=== PATIENT | male | born 1965 | race Caucasian/White ===

== ENCOUNTER 2025-02-24 17:07 | Emergency (ER) | payer OTHER, SELFPAY ==
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
--- OUTSIDE RECORDS SUMMARY | 2024-03-28 05:30 | XMS_ITS | Encounter Summary ---
Author Name [facility] Organization [facility] Address [address] [place] [address] Care Team Providers Care Maintenance Trainer Name Role Phone ROSA MARIA BAPTISTE Primary [...] [facility] Sep 12, 2017 [id number] TOMMY ESCALANTE PATIENT [facility] 2024 [facility] Sep 13, 2024 [facility] [id number] TOMMY ESCALANTE PATIENT Selected Encounter This section includes the information on record at [place] for the Encounter. Date/Time Encounter Type Encounter Description Reason Pro vider Source Mar 28, 2024 10:30 AM OFFICE O/P EST MOD 30 MIN OPHTHALMOLOGY ICD-10-CM H35.711 Central serous chorioretinopa thy, right eye TELMA,SIYA IHE Encounter Template Text not used by [facility] Assessments - Encounter Diagnoses This section includes the primary and secondary diagnoses documented for the Encounter. Date/Time Primary/Secondary Diagnosis Diagnosis Name Provider Source Apr 05, 2024 09:44 AM PRIMARY Central serous chorioretinopathy, right eye BRIDGET DIAZ [facility] Apr 05, 2024 09:44 AM SECONDARY Age-related nuclear cataract, bilateral BRIDGET DIAZ [facility] Apr 05, 2024 09:44 AM SECONDARY Unspecified disorder of refraction BRIDGET DIAZ [facility] Plan of Treatment: Future Appointments (+ 6 months) and Future Tests (+/- 45 days) The Plan of Treatment section includes [facility] care [facility] for the [facility] [place] [facility] This section includes future appointments and future orders which are active, pending or scheduled. Future Appointments This section includes appointments that were scheduled to occur 6 months from the date of the Encounter, up to a maximum of 20 appointments. The data comes from all [place] treatment facilities. Appointment Date/Time Appointment Type Appointme nt Facility Name Apr 16, 2024 10:00 AM AMBULATORY - MEDICINE [facility] May 02, 2024 09:00 AM AMBULATORY MEDICINE [facility] May 17, 2024 12:15 PM AMBULATORY - NONE [facility] Jun 14, 2024 09:38 AM AMBULATORY - MEDICINE [facility] Jul 06, 2024 07:00 AM AMBULATORY - NONE [facility] Jul 15, 2024 09:27 AM AMBULATORY - MEDICINE [facility] Sep 26, 2024 10:30 AM AMBULATORY - SURGERY [facility] Social History: Smoking Status (Most current) and Tobacco Use (All prior to encounter date) This section includes the most current, and the historical, smoking and tobacco- related health factors from the [place] facility where the Encounter took place. Current Smoking Status This section includes the most current smoking, or tobacco-related health factor, from the [place] facility where the Encounter took place. Date/Time Current Smoking Status Comment Facil ity January 20, 2024 11:30 AM VA-TOBACCO FORMER USER [facility] Tobacco Use History This section includes a history of the smoking, or tobacco-related health factors, that were collected on or before the date of the Encounter. The data comes from the [place] facility where the Encounter took place. Date/Time Smoking Status/Tobacco Use Comment F acility January 20, 2024 11:30 AM VA-TOBACCO QUIT 5 TO < 15 YRS [facility] January 13, 2023 03:00 PM VA-TOBACCO FORMER USER [facility] January 13, 2023 03:00 PM VA-TOBACCO QUIT 5 TO < 15 YRS [facility] Dec 24, 2021 02:00 PM VA-TOBACCO FORMER USER [facility] Dec 24, 2021 02:00 PM VA-TOBACCO QUIT 5 TO < 15 YRS [facility] Jan 07, 2021 01:00 PM VA-TOBACCO FORMER USER [facility] Jan 07, 2021 01:00 PM VA-TOBACCO QUIT 5 TO < 15 YRS [facility] Jan 08, 2019 09:55 AM VA-TOBACCO FORMER USER [facility] Jan 08, 2019 09:55 AM VA-TOBACCO QUIT 5 TO < 15 YRS [facility] Dec 20, 2017 12:40 PM FORMER TOBACCO USE >1Y <7Y [facility] Dec 31, 2016 09:21 AM FORMER TOBACCO USER 7Y OR GREATE R [facility] Dec 31, 2015 01:10 PM FORMER TOBACCO USE >1Y <7Y [facility] January 23, 2015 09:59 AM FORMER TOBACCO USER 7Y OR GREATE R [facility] Jan 09, 2014 02:03 PM CURRENT TOBACCO USER [facility] Apr 19, 2012 04:43 PM CURRENT TOBACCO USER [facility] January 28, 2011 09:00 AM CURRENT TOBACCO USER [facility] Jan 08, 2010 09:49 AM CURRENT TOBACCO USER [facility] Jun 24, 2007 09:07 AM CURRENT TOBACCO USER [facility] Advance Directives: All historical and current Section Date Range: From patient's date of to the date document was created. This section includes ALL of a patient's completed or amended [place] Advance and Rescinded Directives. The entries below indicate that a directive exists for the patient, but an actual copy is not included with this document. The data comes from all [place] facilities. Date Advance Directives Provider Source Jun 21, 2007 ADVANCE DIRECTIVE JOE QUINONES [facility] Encounter Notes: All associated encounter notes This section contains the clinical notes associated to the Encounter. Date/Time Encounter Note(s) Provider Source Mar 28, 2024 11:37 AM OPHTHALMOLOGY ATTE NDING NOTE: LOCAL TITLE: OPHTHALMOLOGY CLINIC NOTE STANDARD TITLE: OPHTHALMOLOGY ATTENDING NOTE DATE OF NOTE: MAR 28, 2024@11:37 ENTRY DATE: MAR 28, 2024@11:37:59 AUTHOR: BRIDGET DIAZ EXP COSIGNER: URGENCY: STATUS: COMPLETED RETINA CLINIC NOTE CC/HPI: 58 y/o M here to establish care with retina, previously followed at [facility] with , last seen 02/14/24. Prior history of RPE changes (pachychoroid disease likely). Retinal exam. Patient states blur at near in the last 6-12 months. Distance vision is good. Has longstanding floater RIGHT eye x at least 1 year, stable without flashes of light. Patient notes more frequently diplopia when looking up at a light without glasses on. Blinking resolves diplopia. Uses ketotifen as needed. TECH EXAM: Vision: CC(with glasses) OD: 20/20 Pinhole: 20/ 0S: 20/ Pinhole: 20/ Refraction: Current glasses: OD:+0.25 +0.98K548 OS:plano +0.91A388 Add: +2.00 Refraction: Manifest: YES Automated: NO OD:+0.25 +0.75X5 20/20 OS:-0.25 +0.25X5 20/20 Add: +2.50 Near vision: OD : OS : OU 20 Intra-ocular pressure (IOP): OD: 16 OS: 14 iCare Pupils: see tech note. Mental Status: alert and orientated to time and place Mood, Affect: appropriate ANTERIOR SLIT LAMP EXAM: Lids/Lashes: normal OU Conjunctiva/Sclera: white and quiet OU Cornea: clear OU Anterior Chamber: deep and quiet OU Iris: round, regular OU Lens: tr NS OU DILATED FUNDUS EXAM: Vitreous: clear OU Cup/Disc: 0.3, sharp, pink, no hemorrhages OU Vessels: normal course and caliber OU Macula: OD flat, sharp foveal light reflex OS nasal RPE clumping, foveal flat with sharp reflex Periphery: OD flat and attached 360 OS scattered RPE clumping/changes nasal to disc, flat and attached OCT MACULA: 03/28/24 OD: normal foveal contour, thick choroid OS: nasal RPE and outer retinal changes, no fluid, good foveal contour, thick choroid ASSESSMENT/PLAN: 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 Notes describe RPE changes OS > OD without any evidence of CNVM. - Risk factors: has a history of cortisone shots for shoulder, hip, and knee. Last injection was several years ago. Also recently diagnosed with chronic rhinitis and RX'd a nasal steroid, using for last 6 weeks. Has VIANNEY on CPAP - OCT with nasal changes and no evidence of leakage or CNVM - Amsler grid given to patients, CNVM precautions discussed. 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 Vitreous syneresis OU - Retina flat/attached 360 - RD precautions discussed 3. Nuclear Sclerosis OU - Mild and not visually significant. Monitor. 4. Dry Eyes OU - Continue ATs/WCs PRN RTC 6 months, V/T/D/Mac OCT, or sooner if needed I spent a total of 30 minutes today reviewing the medical record, personally obtaining the history, examining the patient, reviewing test results, counseling the patient, and documenting the visit. The patient needs glasses to read medicine bottles. The patient is photophobic and may require tinted glasses. /petros/ Bridget Diaz MD Physician, Ophthalmology Signed: 03/28/2024 12:00 BRIDGET DIAZ [facility] Mar 28, 2024 10:48 AM OPHTHALMOLOGY CONS ULT: LOCAL TITLE: OPHTHALMOLOGY IMAGING MSP OUTPT CONSULT STANDARD TITLE: OPHTHALMOLOGY CONSULT DATE OF NOTE: MAR 28, 2024@10:48 ENTRY DATE: MAR 28, 2024@10:48:44 AUTHOR: BOONE SCHWARTZ EXP COSIGNER: URGENCY: STATUS: COMPLETED Requested test(s) done, OCT of maculae OU results uploaded to hotel server for review. /petros/ ADITI ADLER CRA Transport Assistant Signed: 03/28/2024 10:48 BOONE SCHWARTZ [facility] Mar 28, 2024 10:24 AM OPHTHALMOLOGY TECH NICIAN NOTE: LOCAL TITLE: WEB MARKETING SPECIALIST NOTE STANDARD TITLE: WEB MARKETING SPECIALIST NOTE DATE OF NOTE: MAR 28, 2024@10:24 ENTRY DATE: MAR 28, 2024@10:24:52 AUTHOR: BRITNI MARTÍNEZ EXP COSIGNER: URGENCY: STATUS: COMPLETED Eye Start Exam Patient: TOMMY ESCALANTE Sex: MALE SSN: [id number] Birthdate: [birth year] Chief complaint: Retinal exam. Patient states blur at near in the last 6-12 months. Distance vision is good. Has longstanding floater RIGHT eye. Denies flashes of light. Patient notes more frequently diplopia when looking up at a light without glasses on. Blinking resolves diplopia. Uses ketotifen as needed. History of Present Illness: Location: Intensity: Duration: Active Problems List: Active problems - Computerized Problem List is the source for the followin. Adj Dis W/Mixed Mood 2. Low back pain (SNOMED CT 287680485) 3. Hyperlipidemia (SNOMED CT 05937918) 4. Arthritis of left hip (SNOMED CT [id number]) 5. Cataract nos 6. Myopia 7. Astigmatism, [...] med 19. Exposure to potentially hazardous substance ([facility] [id number]) - Entered through [facility] Documentation Initiative Surgeries: APR 01, 2020 Proc: right total hip arthroplasty,direct anterior-DePuy Full Exam Eye Medications ketotifen as needed Allergies: BUPROPION (Nov 13, 2007) No new Allergies. Past Medical History: High cholesterol Past eye history: Cataracts : OU Past eye surgeries: Denies all Social History: Alcohol use - Yes Tobacco use - No Family History: Diabetes High blood pressure High cholesterol Cancer Heart disease or stroke: Last refraction: Vision: OD:CC(with glasses) OD: 20/20 Pinhole: 20/ Near: 20/ Vision: OS:CC(with glasses) 0S: 20/ Pinhole: 20/ Near: 20/ Current glasses: OD:+0.25 +0.00Q236 Prism: OS:plano +0.00F775 Prism: Add: +2.00 Refraction: Manifest: YES Automated: NO OD:+0.25 +0.75X5 20/20 OS:-0.25 +0.25X5 20/20 Balance: Add: +2.50 Near vision: OD : OS : OU 20 Comment: Confrontational Ann: Full to finger counting: Right: Yes Left: Yes Extra Ocular Movement: Normal Pupils: Right: Round Left: Round Size: Right: 4 Left: 5 React to light: Right: Yes Left: Yes Afferent pupil defect: Right:No Grade: Left: No Grade: Note: Intra-ocular pressure (IOP): OD: 16 OS: 14 iCare Dilation: mydriacyl 1% and neosynephrine OU Mar@10:43 /petros/ BRITNI MARTÍNEZ [facility] [employer] DESIGN ENGINEER Signed: 03/28/2024 10:43 BRITNI MARTÍNEZ [facility]
--- OUTSIDE RECORDS SUMMARY | 2024-04-16 05:00 | XMS_ITS | Encounter Summary ---
Author Name [facility] [place] [place] [facility] [place] Address [address] [place] [address] Care Team Providers Care Pattern Ruler Name Role Phone ROSA MARIA BAPTISTE Primary [...] [facility] Sep 12, 2017 [id number] TOMMY ESCALANTE PATIENT [facility] Sep [facility], 2024 [facility] [id number] [phone] TOMMY ESCALANTE PATIENT Selected Encounter This section includes the information on record at [place] for the Encounter. Date/Time Encounter Type Encounter Description Reason Provider Source Apr 16, 2024 10:00 AM OFFICE O/P EST MOD 30 MIN SLEEP MEDICINE ICD-10-CM G47.33 Obstructive sleep apnea (adult) (pediatric) LUIS HEMPHILL [facility] Encounter Template Text not used by [facility] Assessments - Encounter Diagnoses This section includes the primary and secondary diagnoses documented for the Encounter. Date/Time Primary/Secondary Diagnosis Diagnosis Name Provider Source Apr 24, 2024 02:37 PM PRIMARY Obstructive sleep apnea (adult) (pediatric) KANCHANLUIS Varela [facility] Apr 24, 2024 02:37 PM SECONDARY Insomnia, unspecified LUIS HEMPHILL [facility] Plan of Treatment: Future Appointments (+ 6 months) and Future Tests (+/- 45 days) The Plan of Treatment section includes future care activities for the patient from all [place] [facility]. This section includes future appointments and future orders which are active, pending or scheduled. Future Appointments This section includes appointments that were scheduled to occur 6 months from the date of the Encounter, up to a maximum of 20 appointments. The data comes from all [facility] facilities. Appointment Date/Time Appointment Type Appointme nt Facility Name May 02, 2024 09:00 AM AMBULATORY - MEDICINE [facility] May 17, 2024 12:15 PM AMBULATORY - NONE [facility] Jun 14, 2024 09:38 AM AMBULATORY MEDICINE [facility] Jul 06, 2024 07:00 AM AMBULATORY - NONE [facility] Jul 15, 2024 09:27 AM AMBULATORY - MEDICINE [facility] Sep 26, 2024 10:30 AM AMBULATORY - SURGERY [facility] Vital Signs: All taken on the encounter date This section contains inpatient and outpatient Vital Signs collected on the date of the Encounter. Date/Time Temperature Pulse Blood Pressure Respiratory Rate SP02 Pain Height Weight Body Mass Index Source Apr 16, 2024 10:38 AM 155/88 [facility] Apr 16, 2024 10:06 AM 157/88 [facility] Apr 16, 2024 10:04 AM 97.8 53 164/85 16 94 0 197.2 32 [facility] Social History: Smoking Status (Most current) and Tobacco Use (All prior to encounter date) This section includes the most current, and the historical, smoking and tobacco- related health factors from the [place] facility where the Encounter took place. Current Smoking Status This section includes the most current smoking, or tobacco-related health factor, from the [place] facility where the Encounter took place. Date/Time Current Smoking Status Comment Facil ity January 20, 2024 11:30 AM VA-TOBACCO FORMER USER [facility] Tobacco Use History This section includes a history of the smoking, or tobacco-related health factors, that were collected on or before the date of the Encounter. The data comes from the [place] facility where the Encounter took place. Date/Time Smoking Status/Tobacco Use Comment F acility January 20, 2024 11:30 AM VA-TOBACCO QUIT 5 TO < 15 YRS [facility] January 13, 2023 03:00 PM VA-TOBACCO FORMER USER [facility] January 13, 2023 03:00 PM VA-TOBACCO QUIT 5 TO < 15 YRS [facility] Dec 24, 2021 02:00 PM VA-TOBACCO FORMER USER [facility] Dec 24, 2021 02:00 PM VA-TOBACCO QUIT 5 TO < 15 YRS [facility] Jan 07, 2021 01:00 PM VA-TOBACCO FORMER USER [facility] Jan 07, 2021 01:00 PM VA-TOBACCO QUIT 5 TO < 15 YRS [facility] Jan 08, 2019 09:55 AM VA-TOBACCO FORMER USER [facility] Jan 08, 2019 09:55 AM VA-TOBACCO QUIT 5 TO < 15 YRS [facility] Dec 20, 2017 12:40 PM FORMER TOBACCO USE >1Y <7Y [facility] Dec 31, 2016 09:21 AM FORMER TOBACCO USER 7Y OR GREATE R [facility] Dec 31, 2015 01:10 PM FORMER TOBACCO USE >1Y <7Y [facility] January 23, 2015 09:59 AM FORMER TOBACCO USER 7Y OR GREATE R [facility] Jan 09, 2014 02:03 PM CURRENT TOBACCO USER [facility] Apr 19, 2012 04:43 PM CURRENT TOBACCO USER [facility] January 28, 2011 09:00 AM CURRENT TOBACCO USER [facility] Jan 08, 2010 09:49 AM CURRENT TOBACCO USER [facility] Jun 24, 2007 09:07 AM CURRENT TOBACCO USER [facility] Advance Directives: All historical and current Section Date Range: From patient's date of to the date document was created. This section includes ALL of a patient's completed or amended [place] Advance and Rescinded Directives. The entries below indicate that a directive exists for the patient, but an actual copy is not included with this document. The data comes from all [place] facilities. Date Advance Directives Provider Source Jun 21, 2007 ADVANCE DIRECTIVE JOE QUINONES [facility] Encounter Notes: All associated encounter notes This section contains the clinical notes associated to the Encounter. Date/Time Encounter Note(s) Provider Source Apr 16, 2024 10:52 AM ADDENDUM: LOCAL TITLE: Addendum STANDARD TITLE: ADDENDUM DATE OF NOTE: APR 16, 2024@10:52:59 ENTRY DATE: APR 16, 2024@10:53 AUTHOR: HERBERT TEJEDA EXP COSIGNER: URGENCY: STATUS: COMPLETED RTC placed for RN ph appt r/t home BP f/u. FYI MEME, please contact vet to schedule. /petros/ HERBERT TEJEDA REGISTERED NURSE Signed: 04/16/2024 10:53 Receipt Acknowledged By: 04/16/2024 11:09 /es/ CEDRIC MON AMSA --- Original Document --- 04/16/24 MEDICINE CLINIC NURSING NOTE: TYPE OF VISIT: Appointment Check In Type of appointment: In-person appointment REASON FOR VISIT: Scheduled clinic visit ALLERGIES: BUPROPION (Nov 13, 2007) VITAL SIGNS: Blood Pressure: 164/85 (04/16/2024 10:04) Blood pressure recheck 157/88 Pulse: 53 (04/16/2024 10:04) Respiration: 16 (04/16/2024 10:04) Temperature: 97.8 F [36.6 C] (04/16/2024 10:04) Weight: 197.2 lb [89.45 kg] (04/16/2024 10:04) Height: 66 in [167.6 cm] (01/30/2024 13:53) BMI: 31.9 O2 Sat: 94% (04/16/2024 10:04) Pain: 0 (04/16/2024 10:04) PAIN SCREEN: Patient is not having significant pain that they wish to discuss with their provider today. MEDICATION Over the Counter/Herbal Medications: The patient states that they take some outside medications and/or herbals. /petros/ REGAN RAYMOND LPN Licensed Practical Nurse Signed: 04/16/2024 10:08 04/16/2024 ADDENDUM STATUS: COMPLETED EDUCATION: 's BP remains elevated after appointment. BP re-check: 155/88 Patient is asymptomatic prior to leaving the clinic today. PARTICIPANT(s): Patient Home Blood Pressure Monitoring Has home Blood Pressure monitor. Verified [employer]. Advised to check home blood pressure daily for two weeks and follow up with Primary Care Provider. PACT RN TL and Provider alerted to note for follow up planning. /petros/ DALI Wade [facility] Signed: 04/16/2024 10:42 Receipt Acknowledged By: 04/16/2024 10:53 /petros/ HERBERT TEJEDA REGISTERED NURSE for HERBERT CALDERON [facility] Apr 16, 2024 10:41 AM ADDENDUM: LOCAL TITLE: Addendum STANDARD TITLE: ADDENDUM DATE OF NOTE: APR 16, 2024@10:41:08 ENTRY DATE: APR 16, 2024@10:41:09 AUTHOR: DALI HILLMAN COSIGNER: URGENCY: STATUS: COMPLETED EDUCATION: 's BP remains elevated after appointment. BP re-check: 155/88 Patient is asymptomatic prior to leaving the clinic today. PARTICIPANT(s): Patient Home Blood Pressure Monitoring Has home Blood Pressure monitor. Verified [employer]. Advised to check home blood pressure daily for two weeks and follow up with Primary Care Provider. PACT RN TL and Provider alerted to note for follow up planning. /petros/ DALI Wade [facility] Signed: 04/16/2024 10:42 Receipt Acknowledged By: 04/16/2024 10:53 /kranthi TEJEDA REGISTERED NURSE for OLGA ZIMMERMAN --- Original Document --- 04/16/24 MEDICINE CLINIC NURSING NOTE: TYPE OF VISIT: Appointment Check In Type of appointment: In-person appointment REASON FOR VISIT: Scheduled clinic visit ALLERGIES: BUPROPION (Nov 13, 2007) VITAL SIGNS: Blood Pressure: 164/85 (04/16/2024 10:04) Blood pressure recheck 157/88 Pulse: 53 (04/16/2024 10:04) Respiration: 16 (04/16/2024 10:04) Temperature: 97.8 F [36.6 C] (04/16/2024 10:04) Weight: 197.2 lb [89.45 kg] (04/16/2024 10:04) Height: 66 in [167.6 cm] (01/30/2024 13:53) BMI: 31.9 O2 Sat: 94% (04/16/2024 10:04) Pain: 0 (04/16/2024 10:04) PAIN SCREEN: Patient is not having significant pain that they wish to discuss with their provider today. MEDICATION Over the Counter/Herbal Medications: The patient states that they take some outside medications and/or herbals. /petros/ REGAN RAYMOND LPN Licensed Practical Nurse Signed: 04/16/2024 10:08 04/16/2024 ADDENDUM STATUS: COMPLETED RTC placed for RN ph appt r/t home BP f/u. FYI [facility], please contact vet to schedule. /petros/ HERBERT TEJEDA REGISTERED NURSE Signed: 04/16/2024 10:53 Receipt Acknowledged By: * AWAITING SIGNATURE * CEDRIC MON MELISSA S [facility] Apr 16, 2024 10:05 AM INTERNAL MEDICINE OUTPATIENT NOTE: LOCAL TITLE: MEDICINE CLINIC NURSING NOTE STANDARD TITLE: INTERNAL MEDICINE OUTPATIENT NOTE DATE OF NOTE: APR 16, 2024@10:05 ENTRY DATE: APR 16, 2024@10:05:25 AUTHOR: REGAN RAYMOND COSIGNER: URGENCY: STATUS: COMPLETED MEDICINE CLINIC NURSING NOTE Has ADDENDA TYPE OF VISIT: Appointment Check In Type of appointment: In-person appointment REASON FOR VISIT: Scheduled clinic visit ALLERGIES: BUPROPION (Nov 13, 2007) VITAL SIGNS: Blood Pressure: 164/85 (04/16/2024 10:04) Blood pressure recheck 157/88 Pulse: 53 (04/16/2024 10:04) Respiration: 16 (04/16/2024 10:04) Temperature: 97.8 F [36.6 C] (04/16/2024 10:04) Weight: 197.2 lb [89.45 kg] (04/16/2024 10:04) Height: 66 in [167.6 cm] (01/30/2024 13:53) BMI: 31.9 O2 Sat: 94% (04/16/2024 10:04) Pain: 0 (04/16/2024 10:04) PAIN SCREEN: Patient is not having significant pain that they wish to discuss with their provider today. MEDICATION Over the Counter/Herbal Medications: The patient states that they take some outside medications and/or herbals. /petros/ REGAN RAYMOND LPN Licensed Practical Nurse Signed: 04/16/2024 10:08 04/16/2024 ADDENDUM STATUS: COMPLETED EDUCATION: 's BP remains elevated after appointment. BP re-check: 155/88 Patient is asymptomatic prior to leaving the clinic today. PARTICIPANT(s): Patient Home Blood Pressure Monitoring Has home Blood Pressure monitor. Verified [employer]. Advised to check home blood pressure daily for two weeks and follow up with Primary Care Provider. PACT RN TL and Provider alerted to note for follow up planning. /petros/ DALI Wade [facility] Signed: 04/16/2024 10:42 Receipt Acknowledged By: 04/16/2024 10:53 /petros/ HERBERT TEJEDA REGISTERED NURSE for OLGA Gay ERASMO 04/16/2024 ADDENDUM STATUS: COMPLETED RTC placed for RN ph appt r/t home BP f/u. EMEKA VALENTINE, please contact vet to schedule. /pteros/ HERBERT TEJEDA REGISTERED NURSE Signed: 04/16/2024 10:53 Receipt Acknowledged By: * AWAITING SIGNATURE * CEDRIC MON ASHLEY A [facility] Apr 16, 2024 07:55 AM SLEEP MEDICINE NOT E: LOCAL TITLE: SLEEP MEDICINE NOTE STANDARD TITLE: SLEEP MEDICINE NOTE DATE OF NOTE: APR 16, 2024@07:55 ENTRY DATE: APR 16, 2024@07:55:25 AUTHOR: LUIS HEMPHILL COSIGNER: URGENCY: STATUS: COMPLETED History of Present Illness: -Tommy is a 58y/o male with a significant PMH for GERD and HLD. He is overweight with a BMI: 31.9. He was referred to the sleep clinic for evaluation for sleep disordered breathing. He completed a home sleep study which was positive for sleep apnea with a pAHI: 33. He was started on APAP and feels benefits from the use of the device. He denies any difficulty w/ mask fit or pressure settings. His overnight oximetry was negative for nocturnal hypoxia. His sleep latency has improved with a later bedtime. He has no concerns regarding his sleep today. He has been able to discontinue melatonin. His ESS is 2 and SONAM 7 today. Sleep Schedule -Bedtime: 10:30-11pm -Sleep latency: <5min -Nocturnal awakenings: 1x nocturia; back asleep quickly -Rise time: 7:30am usually feeling rested -Naps: none Past medication trials for sleep: doxepin, melatonin 90 day PAP download 01/17/24-04/15/24 - days of attempted usage -Avg usage: 7hr 20min -% Days used >4hrs: 100% -AHI: 0.8 -Settings: APAP 5-15 -95% pressure: [id number] -95% leak: 10 L/min 10/26/2023 WPAT as an KLAUS - Mean oxygen saturation was 93% - Lowest oxygen saturation was 83% - Saturations < 90%: 2.3 minutes (0.6% of TVST) - Saturations <= 88%: 0.8 minutes (0.2% of TVST) Study date: 08/01/2023 - Total Recording Time 6 hrs. 21 min. - Study start time 22:39:59 PM - Study stop time 05:01:53 AM - Technically valid sleep time 4 hrs. 54 min. - Total Sleep Time 5 hrs. 46 min. - REM was N/A% of technically valid sleep time BODY POSITION - Supine sleep was 3 hrs. 49 min. (66.3% of TVST) - Non-Supine sleep was 1 hr. 33 min. (26.8% of TVST) RESPIRATORY PARAMETERS: - pAHI-4% was 32.9 - Supine pAHI-4% was 35.3 - Non-supine pAHI-4% was 23.7 - Estimated REM pAHI-4% was N/A - Central pAHI-4% was 5.7 - pRDI was 32.9 - Snoring >50dB for 45.4% of TVST - JOSE ANTONIO was 36.4 - Mean oxygen saturation was 88% - Lowest oxygen saturation was 55% - Saturations < 90%: 157.3 minutes (45.5% of TVST) - Saturations <= 88%: 119.1 minutes (34.5% of TVST) HEART RATE STATISTICS (BPM) - Mean: 58; Min: 32; Max: 94 [place] Sleepiness Scale Using the scale: 0=Never 1=Slight chance of dozing 2=Moderate chance of dozing 3=High chance of dozing, how often are you likely to doze off in the following situations? 1. Sitting and reading 1 2. Watching TV 1 3. Sitting inactive in a public place 0 4. As a passenger in a car for an hour without a break 0 5. Lying down to rest in the afternoon as circumstances permit 0 6. Sitting and talking to someone 0 7. Sitting quietly after lunch without alcohol 0 8. In a car while stopped for a few minutes in traffic 0 TOTAL: 2 INSOMNIA SEVERITY INDEX: none: 0, mild: 1, moderate: 2, severe: 3, very: 4 1. Difficulty falling asleep (1) 2. Difficulty staying asleep (1) 3. Problem waking up too early (1) 4. How satisfied/dissatisfied are you with your current sleep (1) 5. To what extent do you consider your sleep problem to interfere with your daily functioning (1) 6. How noticeable to others do you think your sleep problem is in terms of impairing the quality of your life (1) 7. How worried/distressed are you about your current sleep problem (1) Total: 7 0-7: No clinically significant insomnia 8-14: Subthreshold insomnia 15-21: Clinical insomnia (moderate severity) 22-28: Clinical insomnia (severe) Review of Systems: The confirms or denies the following symptoms as noted: Non-restorative sleep: + occasional Snoring: resolved w/ PAP Witnessed apneas: resolved w/ PAP Nocturia: + Difficulty initiating sleep: + Difficulty maintaining sleep: - Sleep Walking: - Somniloquy: + Sleep paralysis: - Hypnagogic hallucinations: - Hypnopompic hallucinations: - Nocturnal limb movements: + some kicking; denies LORENA Nightmares: - RLS: - (has neuropathy; will be discussing w/ PCP) Past Medical History Active problems - Computerized Problem List is [...] - airsense s11 apap 5-15, N20 med Medications: Active Outpatient Medications (including Supplies): Outpatient Medications Status 1) ACETAMINOPHEN 500MG TAB TAKE TWO TABLETS BY MOUTH ACTIVE THREE TIMES A DAY FOR PAIN*NOT TO EXCEED 4000MG IN 24 HOURS* 2) ATORVASTATIN CALCIUM 40MG TAB TAKE ONE-HALF TABLET BY ACTIVE MOUTH AT BEDTIME FOR CHOLESTEROL 3) AZELASTINE 137MCG/SPRAY 200D NASAL INHL SPRAY 1 PUFF ACTIVE IN EACH NOSTRIL TWICE A DAY FOR CHRONIC RHINITIS 4) CELECOXIB 100MG CAP TAKE ONE CAPSULE BY MOUTH TWICE A ACTIVE DAY FOR JOINT PAIN 5) FLUTICASONE PROP 50MCG 120D NASAL INHL SPRAY 2 SPRAYS ACTIVE IN EACH NOSTRIL EVERY DAY FOR CONGESTION 6) IPRATROPIUM BR 0.03% NASAL SPRAY SPRAY 1 SPRAY IN ACTIVE EACH NOSTRIL FOUR TIMES A DAY CHRONIC RHINITIS 7) KETOTIFEN 0.025% OPH SOLN INSTILL 1 DROP IN BOTH EYES ACTIVE TWICE A DAY 8) LIDOCAINE 4% TOP CREAM APPLY MODERATE AMOUNT ACTIVE TOPICALLY THREE TIMES A DAY NEEDED (COLD/ PAIN IN FEET) 9) LORATADINE 10MG TAB TAKE ONE TABLET BY [...] CAP TAKE ONE CAPSULE BY MOUTH ACTIVE TWICE A DAY TO DECREASE STOMACH ACID -TAKE ON AN EMPTY STOMACH, AT LEAST 30 MINUTES BEFORE EATING 14) SINUS RINSE NEILMED REGULAR KIT USE 1 PACKET EACH ACTIVE NOSTRIL TWICE A DAY CHRONIC RHINITIS Non-VA Medications Status 1) Non-VA MARINE LIPID (FISH OIL) CAP,ORAL ACTIVE 2) Non-VA MULTIVITAMINS/MINERALS TAB MOUTH ACTIVE 16 Total Medications Allergies: BUPROPION (Nov 13, 2007) Physical Exam: Vitals: BP: 155/88 (04/16/2024 10:38) P: 53 (04/16/2024 10:04) R: 16 (04/16/2024 10:04) T: 97.8 F [36.6 C] (04/16/2024 10:04) WT: 197.2 lb [89.45 kg] (04/16/2024 10:04) Pain: 0 (04/16/2024 10:04) Impression: 1. Severe sleep apnea: download suggests current settings are effectively treating 's sleep apnea 2. Insomnia: improved since his last office visit Recommendation: 1. Continue APAP with excellent adherence 2. RTC in 12mo or sooner if needed 30 minutes spent on chart review, examining the , and documentation of the note /es/ TONY ROSADO PHYSICIAN INFANTRY OPERATIONS SPECIALIST Signed: 04/16/2024 10:54 LUIS HEMPHILL [facility]
--- OUTSIDE RECORDS SUMMARY | 2024-06-14 04:38 | XMS_ITS | Encounter Summary ---
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 them? Response not required due to responses to other questions. 5. Over the past month, have you started to work out or worked out the details of how to kill yourself? Response not required due to responses to other questions. 6. If yes, at any time in the past month did you intend to carry out this plan? Response not required due to responses to other questions. 7. In your lifetime, have you ever done anything, started to do anything, or prepared to do anything to end your life (for example, collected pills, obtained a gun, gave away valuables, went to the roof but didn't jump)? No 8. If YES, was this within the past 3 months? Response not required due to responses to other questions. /petros/ MARIO ELLIOTT BUSBOY RN Signed: 06/14/2024 10:39 MARIO ELLIOTT [facility]
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
--- OUTSIDE RECORDS SUMMARY | 2024-07-15 06:37 | XMS_ITS | Encounter Summary ---
Author Name [facility] [place] [facility] [place] [facility] [place] Address [address] [place] [address] Care Team Providers Care Timing Adjuster Name Role Phone ROSA MARIA BAPTISTE Primary [...] [place] PREFERRED PROVIDER ORGANIZAT ION (PPO) SIDDHARTHA RICKS LABOR ERS H Sep 12, 2017 [id number] TOMMY ESCALANTE PATIENT [facility] 2024 [facility] Sep 13, 2024 [facility] [id number] TOMMY ESCALANTE PATIENT Selected Encounter This section includes the information on record at [place] for the Encounter. Date/Time Encounter Type Encounter Description Reason Pro vider Source Jul 15, 2024 11:37 AM Outpatient Encounter [facility] Encounter Template Text not used by [place] Plan of Treatment: Future Appointments (+ 6 months) and Future Tests (+/- 45 days) The Plan of Treatment section includes future care activities for the patient from all [facility] treatment[facility]ilities. This section includes future appointments and future orders which are active, pending or scheduled. Future Appointments This section includes appointments that were scheduled to occur 6 months from the date of the Encounter, up to a maximum of 20 appointments. The data comes from all [place] treatment facilities. Appointment Date/Time Appointment Type Appointme nt Facility Name Sep 26, 2024 10:30 AM AMBULATORY - SURGERY [facility] Lab Results: +/- 30 days of the encounter This section includes the Chemistry and Hematology Lab Results on record with [place] for the patient. Radiology Reports and Pathology Reports are provided separately, in subsequent sections. Lab Results This section contains the Chemistry/Hematology Results that were resulted 30 days before or 30 daysafter the date of the Encounter. Date/Time Source Result Type Result - Unit Interpretation Reference Range Specimen Type Comment Jul 15, 2024 10:11 AM [facility] COVID-19 DIAGNOSTIC PANEL (TinypassFIRE) NASOPHARYNG EAL Specimen Type: NASOPHARYNGEAL Comment: [employer] Julianne (618) Ordering Provider: SEAN MORGAN Report Released Date/Time: Jul 15, 2024 10:01 AM Reporting Lab: [facility] [id number] Performing Lab: [facility] [id number] C PNEUMONIAE PCR NOT DETECTED NOT DETECT [...] PCR NOT DETECTED NOT DE TECTED B PARAPERTUS([id number]) NOT DETECTED NOT DE TECTED B PERTUSSIS(PTXP) [...] AM 98.8 71 153/86 16 94 0 [place] [facility] Social History: Smoking Status (Most current) and Tobacco Use (All prior to encounter date) This section includes the most current, and the historical, smoking and tobacco- related health factors from the [place] facility where the Encounter took place. Current Smoking Status This section includes the most current smoking, or tobacco-related health factor, from the [place] facility where the Encounter took place. Date/Time Current Smoking Status Comment Facil ity January 20, 2024 11:30 AM VA-TOBACCO QUIT 5 TO < 15 YRS [facility] Tobacco Use History This section includes a history of the smoking, or tobacco-related health factors, that were collected on or before the date of the Encounter. The data comes from the [place] facility where the Encounter took place. Date/Time Smoking Status/Tobacco Use Comment F acility January 20, 2024 11:30 AM VA-TOBACCO QUIT 5 TO < 15 YRS [facility] January 13, 2023 03:00 PM VA-TOBACCO FORMER USER [facility] January 13, 2023 03:00 PM VA-TOBACCO QUIT 5 TO < 15 YRS [facility] Dec 24, 2021 02:00 PM VA-TOBACCO FORMER USER [facility] Dec 24, 2021 02:00 PM VA-TOBACCO QUIT 5 TO < 15 YRS [facility] Jan 07, 2021 01:00 PM VA-TOBACCO FORMER USER [facility] Jan 07, 2021 01:00 PM VA-TOBACCO QUIT 5 TO < 15 YRS [facility] Jan 08, 2019 09:55 AM VA-TOBACCO FORMER USER [facility] Jan 08, 2019 09:55 AM VA-TOBACCO QUIT 5 TO < 15 YRS [facility] Dec 20, 2017 12:40 PM FORMER TOBACCO USE >1Y <7Y [facility] Dec 31, 2016 09:21 AM FORMER TOBACCO USER 7Y OR GREATE R [facility] Dec 31, 2015 01:10 PM FORMER TOBACCO USE >1Y <7Y [facility] January 23, 2015 09:59 AM FORMER TOBACCO USER 7Y OR GREATE R [facility] Jan 09, 2014 02:03 PM CURRENT TOBACCO USER [facility] Apr 19, 2012 04:43 PM CURRENT TOBACCO USER [facility] January 28, 2011 09:00 AM CURRENT TOBACCO USER [facility] Jan 08, 2010 09:49 AM CURRENT TOBACCO USER [facility] Jun 24, 2007 09:07 AM CURRENT TOBACCO USER [facility] Advance Directives: All historical and current Section Date Range: From patient's date of to the date document was created. This section includes ALL of a patient's completed or amended [place] Advance and Rescinded Directives. The entries below indicate that a directive exists for the patient, but an actual copy is not included with this document. The data comes from all [place] facilities. Date Advance Directives Provider Source Jun 21, 2007 ADVANCE DIRECTIVE JOE QUINONES [facility] Encounter Notes: All associated encounter notes This section contains the clinical notes associated to the Encounter. Date/Time Encounter Note(s) Provider Source Jul 15, 2024 11:37 AM EDUCATION NOTE: LOCAL TITLE: EDUCATION MEDICATION INSTRUCTION STANDARD TITLE: EDUCATION NOTE DATE OF NOTE: JUL 15, 2024@11:37 ENTRY DATE: JUL 15, 2024@11:37:35 AUTHOR: MICHELET GAINES EXP COSIGNER: URGENCY: STATUS: COMPLETED MEDICATION EDUCATION PARTICIPANTS: Patient TEACHING STRATEGY: Face to Face READINESS TO LEARN: No barriers identified LEARNING NEEDS/OBJECTIVES Participant(s) indicates readiness to learn and has been instructed on indications, side effects, and directions for use. Participant(s) will receive medication information sheets for medications filled. Education included discussion of the following new medication(s): BENZONATATE PATIENT/FAMILY RESPONSE (OUTCOME): Verbalizes critical information about the topic FOLLOW-UP RECOMMENDED: None needed /petros/ MICHELET GAINES PharmD, BCPS PHARMACIST Signed: 07/15/2024 11:37 MICHELET GAINES [facility]
--- OUTSIDE RECORDS SUMMARY | 2024-09-26 05:30 | XMS_ITS | Encounter Summary ---
Author Name [facility] Organization [facility] [place] [place] Address [address] [place] [address] Care Team Providers Care Sba Underwriter Name Role Phone ROSA MARIA BAPTISTE Primary [...] [facility] LABOR ERS H Sep 12, 2017 [id number] TOMMY ESCALANTE PATIENT [facility] 2024 [facility] Sep 13, 2024 [facility] [id number] TOMMY ESCALANTE PATIENT Selected Encounter This section includes the information on record at [place] for the Encounter. Date/Time Encounter Type Encounter Description Reason Provider Source Sep 26, 2024 10:30 AM OFFICE O/P EST MOD 30 MIN OPHTHALMOLOGY ICD-10-CM H35.3122 Nexdtve age-related mclr degn, left eye, intermed dry stage TELMA,[facility] Encounter Template Text not used by [facility] Assessments - Encounter Diagnoses This section includes the primary and secondary diagnoses documented for the Encounter. Date/Time Primary/Secondary Diagnosis Diagnosis Name Provider Source Oct 09, 2024 09:06 AM PRIMARY Nexdtve age-related mclr degn, left eye, intermed dry stage [facility] Oct 09, 2024 09:06 AM SECONDARY Age-related nuclear cataract, bilateral [facility] Oct 09, 2024 09:06 AM SECONDARY Vitreous degeneration, bilateral [facility] Plan of Treatment: Future Appointments (+ 6 months) and Future Tests (+/- 45 days) The Plan of Treatment section includes future care activities for the patient [facility] [place] [facility]. This section includes future appointments and future orders which are active, pending or scheduled. Future Appointments This section includes appointments that were scheduled to occur 6 months from the date of the Encounter, up to a maximum of 20 appointments. The data comes from all [place] treatment facilities. Appointment Date/Time Appointment Type Appointme nt Facility Name Feb 15, 2025 08:00 AM AMBULATORY - NONE [facility] Feb 15, 2025 09:00 AM AMBULATORY - MEDICINE [facility] Mar 01, 2025 09:00 AM AMBULATORY - NONE [facility] Social History: Smoking Status (Most current) and Tobacco Use (All prior to encounter date) This section includes the most current, and the historical, smoking and tobacco- related health factors from the [place] facility where the Encounter took place. Current Smoking Status This section includes the most current smoking, or tobacco-related health factor, from the [place] facility where the Encounter took place. Date/Time Current Smoking Status Comment Mervin ity January 20, 2024 11:30 AM VA-TOBACCO FORMER USER [facility] Tobacco Use History This section includes a history of the smoking, or tobacco-related health factors, that were collected on or before the date of the Encounter. The data comes from the [place] facility where the Encounter took place. Date/Time Smoking Status/Tobacco Use Comment F acility January 20, 2024 11:30 AM VA-TOBACCO QUIT 5 TO < 15 YRS [facility] January 13, 2023 03:00 PM VA-TOBACCO FORMER USER [facility] January 13, 2023 03:00 PM VA-TOBACCO QUIT 5 TO < 15 YRS [facility] Dec 24, 2021 02:00 PM VA-TOBACCO FORMER USER [facility] Dec 24, 2021 02:00 PM VA-TOBACCO QUIT 5 TO < 15 YRS [facility] Jan 07, 2021 01:00 PM VA-TOBACCO FORMER USER [facility] Jan 07, 2021 01:00 PM VA-TOBACCO QUIT 5 TO < 15 YRS [facility] Jan 08, 2019 09:55 AM VA-TOBACCO FORMER USER [facility] Jan 08, 2019 09:55 AM VA-TOBACCO QUIT 5 TO < 15 YRS [facility] Dec 20, 2017 12:40 PM FORMER TOBACCO USE >1Y <7Y [facility] Dec 31, 2016 09:21 AM FORMER TOBACCO USER 7Y OR GREATE R [facility] Dec 31, 2015 01:10 PM FORMER TOBACCO USE >1Y <7Y [facility] January 23, 2015 09:59 AM FORMER TOBACCO USER 7Y OR GREATE R [facility] Jan 09, 2014 02:03 PM CURRENT TOBACCO USER [facility] Apr 19, 2012 04:43 PM CURRENT TOBACCO USER [facility] January 28, 2011 09:00 AM CURRENT TOBACCO USER [facility] Jan 08, 2010 09:49 AM CURRENT TOBACCO USER [facility] Jun 24, 2007 09:07 AM CURRENT TOBACCO USER [facility] Advance Directives: All historical and current Section Date Range: From patient's date of to the date document was created. This section includes ALL of a patient's completed or amended [place] Advance and Rescinded Directives. The entries below indicate that a directive exists for the patient, but an actual copy is not included with this document. The data comes from all [place] facilities. Date Advance Directives Provider Source Jun 21, 2007 ADVANCE DIRECTIVE JOE QUINONES [facility] Encounter Notes: All associated encounter notes This section contains the clinical notes associated to the Encounter. Date/Time Encounter Note(s) Provider Source Sep 26, 2024 11:33 AM OPHTHALMOLOGY CONS ULT: LOCAL TITLE: OPHTHALMOLOGY IMAGING [facility] OUTPT CONSULT STANDARD TITLE: OPHTHALMOLOGY CONSULT DATE OF NOTE: SEP 26, 2024@11:33 ENTRY DATE: SEP 26, 2024@11:33:31 AUTHOR: BOONE SCHWARTZ EXP COSIGNER: URGENCY: STATUS: COMPLETED Requested test(s) done, OCT of maculae OU results uploaded to fountain server for review. 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 Notices an occasional flash in the OD once in a great while, started about 2-3 weeks ago. Possible new floater in the OS - glasses working well. TECH EXAM: Vision: OD:CC(with glasses) OD: 20/20-1 Pinhole: 20/ 0S: 20/20 Pinhole: 20/ Intra-ocular pressure (IOP): OD: 14 OS: 11 iCare Pupils: see tech note. Mental Status: [...] sharp reflex Periphery: OD flat and attached 360, peripheral drusenoid deposits OS scattered RPE clumping/changes nasal to disc, flat and attached OCT MACULA: 09/26/24 OD: normal foveal contour, thick choroid OS: nasal RPE and outer retinal changes, no fluid, good foveal contour, thick choroid ASSESSMENT/PLAN: 1. 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 Last injection several years ago. Also VIANNEY on CPAP, using nasal steroid - OCT stable with nasal changes OS and no evidence of leakage or CNVM - Continue Amsler Grid use, CNVM precautions 2. Vitreous syneresis OU - Retina flat/attached 360 - Occasional flash OD x few weeks. Hyaloid attached, no PVD yet. Discussed RD precautions and RTC immediately for increased flashes/floaters/curtain. 3. Nuclear Sclerosis OU - Mild and not visually significant. Monitor. 4. Dry Eyes OU - Continue ATs/WCs PRN RTC 9 months, V/T/D/Mac OCT, or sooner if needed I spent a total of 30 minutes today reviewing the medical record, personally obtaining the history, examining the patient, reviewing test results, counseling the patient, and documenting the visit. The patient needs glasses to read medicine bottles. The patient is photophobic and may require tinted glasses. /petros/ Katerin Diaz MD Physician, Ophthalmology Signed: 09/26/2024 11:25 KATERIN DIAZ [facility] Sep 26, 2024 10:39 AM OPHTHALMOLOGY TECH NICIAN NOTE: LOCAL TITLE: FOUNDER AND CHIEF EXECUTIVE OFFICER NOTE STANDARD TITLE: FOUNDER AND CHIEF EXECUTIVE OFFICER NOTE DATE OF NOTE: SEP 26, 2024@10:39 ENTRY DATE: SEP 26, 2024@10:39:27 AUTHOR: EMMA MONTEJO COSIGNER: URGENCY: STATUS: COMPLETED Eye Start Exam Patient: TOMMY ESCALANTE Sex: MALE SSN: [id number] Birthdate: [birth year] Chief complaint: 6 mo F/U - pt has just started noticing an occasional flash in the OD, started about 2-3 weeks ago - maybe getting a new floater in the OS - glasses working well History of Present Illness: Location: Intensity: Duration: Follow Up Exam Eye Medications ketotifen OU PRN Last refraction: Vision: OD:CC(with glasses) OD: 20/20-1 Pinhole: 20/ Near: 20/ Vision: OS:CC(with glasses) 0S: 20/20 Pinhole: 20/ Near: 20/ Confrontational Ann: Full to finger counting: Right: Yes Left: Yes Extra Ocular Movement: Normal Pupils: Right: Round Left: Round Size: Right: 4 Left: 4 React to light: Right: Yes Left: Yes Afferent pupil defect: Right:No Grade: Left: No Grade: Note: Intra-ocular pressure (IOP): OD: 14 OS: 11 iCare Dilation: mydriacyl 1% and neosynephrine OU Sep@10:46 /petros/ EMMA MONTEJO HEALTH INTERNATIONAL MARKETING SPECIALIST Signed: 09/26/2024 10:46 EMMA MONTEJO [facility]
--- OUTSIDE RECORDS SUMMARY | 2025-01-23 12:17 | XMS_ITS | Encounter Summary ---
Author Name [facility] Organization [facility] Address [address] [place] [address] Care Team Providers Care Cook Fruit Name Role Phone ROSA MARIA BAPTISTE Primary [...] [facility] Sep 12, 2017 [id number] TOMMY ESCALANTE PATIENT [facility] 2024 [facility] WNR Sep 13, 2024 [facility] [id number] TOMMY ESCALANTE PATIENT Selected Encounter This section includes the information on record at [place] for the Encounter. Date/Time Encounter Type Encounter Description Reason Pro vider Source January 23, 2025 05:17 PM Outpatient Encounter EVENT (HISTORICAL) I[facility] Encounter Template Text not used by [place] Plan of Treatment: Future Appointments (+ 6 [...] 20 appointments. The data comes from all [facility]. Appointment Date/Time Appointment Type Appointme nt Facility Name Feb 15, 2025 08:00 [facility] Feb 15, 2025 09:00 AM AMBULATORY - MEDIC[facility] Mar 01, 2025 09:00 AM [facility] Apr 10, 2025 09:00 AM [facility] Apr 15, 2025 10:00 AM AMBULATORY - MEDICINE [facility] Jul 02, 2025 09:30 AM [facility] Active, Pending, and Scheduled Orders This section includes a listing of several types of active, pending, and scheduled orders, including clinic medications orders, diagnostic test orders, procedure orders and consult orders; where the start date of the order is 45 days before the date of the Encounter or 45 days after the date of theEncounter. The data comes from all [facility]. Test Date/Time Test Type Test Details Facility Name Feb 17, 2025 11:20 AM Consult Order CARDIAC EC HO OUTPT-ALL SITES Cons Medicine Assistant's Choice [facility] Mar 01, 2025 09:00 AM Imaging - CT Scan Order LDCT INCIDENTAL PULMONARY NODULE [facility] Lab Results: +/- 30 days of the encounter This section includes the Chemistry and Hematology Lab Results on record with [place] for the patient. Radiology Reports and Pathology Reports are provided separately, in subsequent sections. Lab Results This section contains the Chemistry/Hematology Results that were resulted 30 days before or 30 daysafter the date of the Encounter. Date/Time Source Result Type Result - Unit Interpretation Reference Range Specimen Type Comment Feb 15, 2025 07:39 AM [facility] HEMOGLOBIN A1C BLOOD Specimen Type: BLOOD Comment: Values obtained from A1C measurements can vary. For typical A1C assays, a reported value of 7.0 could actually be between 6.7 and 7.3 if measured by a reference method. A reported value of 9.0 could actually be between 8.7 and 9.3. Ref: http://www.ngsp .org/CAPdata.as p Ordering Provider: DIONY BAPTISTE Report Released Date/Time: January 20, 2024 12:23 PM Reporting Lab: [facility] [id number] Performing Lab: [facility] [id number] HEMOGLOBIN A1C 6.2 H 4.0-6.0 Feb 15, 2025 07:39 AM [facility] LIPID PANEL,NON-FASTING PLASMA Spec imen Type: PLASMA No comment entered. Ordering Provider: ROSA MARIA BAPTISTE Report Released Date/Time: January 20, 2024 12:23 PM Reporting Lab: [facility] [phone] Performing Lab: [facility] [phone] CHOLESTEROL 194 mg/dL <199 .HDL 50 mg/dL >40 LDL CALCULATION 106 mg/dL H <99 VLDL CALCULATION 38 mg/dL H <29 NON HDL CHOLESTEROL 144 mg/dL H <129 TRIG(NON FASTING) 188 mg/dL H <149 Feb 15, 2025 07:39 AM [facility] CBC BLOOD Specimen Type: BLOOD No comment entered. Ordering Provider: ROSA MARIA BAPTISTE Report Released Date/Time: January 20, 2024 12:23 PM Reporting Lab: [facility] [phone] Performing Lab: [facility] [phone] WBC 4.8 4.0-11.0 RBC 4.92 4.60-6.20 HGB 14.7 g/dL 13.5-17.9 HCT 43.7 41.0-54.0 MCV 88.8 fL 80.0-100.0 MCH 29.9 pg 27.0-33.0 MCHC 33.6 g/dL 32.0-37.5 PLT 191 150-400 MPV 8.8 fL L 9.1-13.0 RDW 12.4 11.5-14.5 Feb 15, 2025 07:39 AM [facility] COMPREHENSIVE METABOLIC PANEL+MG PLASMA Specimen Type: PLASMA No comment entered. Ordering Provider: ROSA MARIA BAPTISTE Report Released Date/Time: January 20, 2024 12:23 PM Reporting Lab: [facility] [phone] Performing Lab: [facility] [phone] CREATININE 0.9 mg/dL 0.7-1.2 UREA NITROGEN 11 mg/dL 8-26 GLUCOSE 122 mg/dL H 70-100 SODIUM 139 mmol/L 136-145 POTASSIUM 4.3 mmol/L 3.5-5.1 CHLORIDE 103 mmol/L 98-107 CO2 26 mmol/L 22-29 CALCIUM 9.4 mg/dL 8.4-10.2 PROTEIN,TOTAL 7.7 g/dL 6.4-8.3 ALBUMIN 4.8 g/dL 3.5-5.0 BILIRUBIN, TOTAL 0.7 mg/dL 0.2-1.2 MAGNESIUM 2.2 mg/dL 1.6-2.6 ANION GAP 10 mmol/L 5-15 ALKALINE PHOSPHATASE 88 U/L 40-150 ALT/SGPT 73 U/L H <44 AST/SGOT 56 U/L H 11-34 .CREAT EGFR(CKD-EPI) >90 >60 Social History: Smoking Status (Most current) and Tobacco Use (All prior to encounter date) This section includes the most current, and the historical, smoking and tobacco- related health factors from the [place] facility where the Encounter took place. Current Smoking Status This section includes the most current smoking, or tobacco-related health factor, from the [place] facility where the Encounter took place. Date/Time Current Smoking Status Comment Mervin ity January 20, 2024 11:30 AM VA-TOBACCO FORMER USER [facility] Tobacco Use History This section includes a history of the smoking, or tobacco-related health factors, that were collected on or before the date of the Encounter. The data comes from the [place] facility where the Encounter took place. Date/Time Smoking Status/Tobacco Use Comment F acstarr January 20, 2024 11:30 AM VA-TOBACCO QUIT 5 TO < 15 YRS [facility] January 13, 2023 03:00 PM VA-TOBACCO FORMER USER [facility] January 13, 2023 03:00 PM VA-TOBACCO QUIT 5 TO < 15 YRS [facility] Dec 24, 2021 02:00 PM VA-TOBACCO FORMER USER [facility] Dec 24, 2021 02:00 PM VA-TOBACCO QUIT 5 TO < 15 YRS [facility] Jan 07, 2021 01:00 PM VA-TOBACCO FORMER USER [facility] Jan 07, 2021 01:00 PM VA-TOBACCO QUIT 5 TO < 15 YRS [facility] Jan 08, 2019 09:55 AM VA-TOBACCO FORMER USER [facility] Jan 08, 2019 09:55 AM VA-TOBACCO QUIT 5 TO < 15 YRS [facility] Dec 20, 2017 12:40 PM FORMER TOBACCO USE >1Y <7Y [facility] Dec 31, 2016 09:21 AM FORMER TOBACCO USER 7Y OR GREATE R [facility] Dec 31, 2015 01:10 PM FORMER TOBACCO USE >1Y <7Y [facility] January 23, 2015 09:59 AM FORMER TOBACCO USER 7Y OR GREATE R [facility] Jan 09, 2014 02:03 PM CURRENT TOBACCO USER [facility] Apr 19, 2012 04:43 PM CURRENT TOBACCO USER [facility] January 28, 2011 09:00 AM CURRENT TOBACCO USER [facility] Jan 08, 2010 09:49 AM CURRENT TOBACCO USER [facility] Jun 24, 2007 09:07 AM CURRENT TOBACCO USER [facility] Advance Directives: All historical and current Section Date Range: From patient's date of to the date document was created. This section includes ALL of a patient's completed or amended [place] Advance and Rescinded Directives. The entries below indicate that a directive exists for the patient, but an actual copy is not included with this document. The data comes from all [place] facilities. Date Advance Directives Provider Source Jun 21, 2007 ADVANCE DIRECTIVE JOE QUINONES [facility] Encounter Notes: All associated encounter notes This section contains the clinical notes associated to the Encounter. Date/Time Encounter Note(s) Provider Source January 23, 2025 05:17 PM Captain Wise DIALOG NOTE: LOCAL TITLE: GenometryAGING STANDARD TITLE: Captain Wise DIALOG NOTE DATE OF NOTE: JANUARY 23, 2025@17:17 ENTRY DATE: JANUARY 23, 2025@16:17:09 AUTHOR: KILO LOCKWOOD EXP COSIGNER: URGENCY: STATUS: COMPLETED ------Original Message ---- Sent: 01/21/2025 04:42 PM ET From: KILO LOCKWOOD To: [facility] Primary care alcohol use screener follow up Subject: General:[facility] Primary care alcohol use screen follow up Good afternoon, My name is Kilo Lockwood and I am a [place] Pharmacist who works with your provider. I am reaching out to you today to follow up on some routine health screening questions we asked you about at your last primary care visit. One of the questionnaires you filled out asked you questions about alcohol use. Based on the answers you provided, the amount of alcohol you reported drinking can be harmful to your overall health. There are many ways that drinking alcohol can affect overall health. This can include increasing the risk for heart attack, stroke, high blood pressure, liver disease, and certain cancers. Keeping the amount of alcohol you drink below certain amounts can lower your risk of those health issues. The recommended drinking limits are: ? For men: no more than 2 drinks per day on average (which is 14 drinks/week); no more than 4 drinks on any one day ? For women: no more than 1 drink per day on average (which is 7 drinks/week); no more than 3 drinks on any one day The [place] has multiple services that can assist you in reducing alcohol consumption. These services include both medication assistance and therapy. There are several medication options available depending on your drinking goals. Would you be interested in discussing your alcohol use further and potential options to help you reduce drinking? Please reply to this secure message. If you are interested in talking about ways to reduce alcohol use, reply YES. If you are not interested, please reply NO. If you are interested, myself or a clinical pharmacist I work with will reach out via phone. Thank you for your time and your service. Sincerely, Kilo Lockwood, PharmD? ------Original Message ---- Sent: 01/21/2025 05:26 PM ET From: TOMMY ESCALANTE To: [facility] Primary Care Alcohol Screen Follow-up Subject: General:[facility] Primary care alcohol use screen follow up No /es/ KILO LOCKWOOD HOISTING ENGINEER Signed: 01/23/2025 16:17 KILO LOCKWOOD [facility]
--- OUTSIDE RECORDS SUMMARY | 2025-02-12 09:16 | XMS_ITS ---
Author Name [facility] [place] Address [address] [place] [address] Care Team Providers Care Pyrometer Temperature Regulator Name Role Phone ROSA MARIA BAPTISTE Primary [...] [facility] ERS H Sep 12, 2017 [id number] TOMMY ESCALANTE PATIENT [facility] 2024 [facility] Sep 13, 2024 [facility] [id number] TOMMY ESCALANTE PATIENT Selected Encounter This section includes the information on record at [place] for the Encounter. Date/Time Encounter Type Encounter Description Reason Provider Source Feb 12, 2025 02:16 PM [facility] OL DIG ASSMT&MGMT 21+ CLINICAL PHARMACY ICD-10-CM F10.90 Alcohol use, unspecified, uncomplicated MIGUEL,AND RA A IHE Encounter Template Text not used by [facility] Assessments - Encounter Diagnoses This section includes the primary and secondary diagnoses documented for the Encounter. Date/Time Primary/Secondary Diagnosis Diagnosis Name Provider Source Feb 12, 2025 02:21 PM PRIMARY Alcohol use, unspecified, uncomplicated EPLAND,CLAUDI A R [facility] Plan of Treatment: Future Appointments (+ 6 months) and Future Tests (+/- 45 days) The Plan of Treatment section includes future care activities for the patient from all [place] [facility] This section includes future appointments and future orders which are active, pending or scheduled. Future Appointments This section includes appointments that were scheduled to occur 6 months from the date of the Encounter, up to a maximum of 20 appointments. The data comes from all [facility]. Appointment Date/Time Appointment Type Appointme nt Facility Name Feb 15, 2025 08:00 AM AMBULATORY - NONE [facility] Feb 15, 2025 09:00 AM AMBULATORY - MEDICINE [facility] Mar 01, 2025 09:00 AM AMBULATORY - NONE [facility] Apr 10, 2025 09:00 AM [facility] Apr 15, 2025 10:00 AM AMBULATORY - MEDICINE [facility] Jul 02, 2025 09:30 AM AMBULATORY - SURGERY [facility] Active, Pending, and Scheduled Orders This section includes a listing of several types of active, pending, and scheduled orders, including clinic medications orders, diagnostic test orders, procedure orders and consult orders; where the start date of the order is 45 days before the date of the Encounter or 45 days after the date of theEncounter. The data comes from all [facility]. Test Date/Time Test Type Test Details Facility Name Feb 17, 2025 11:20 AM Consult Order CARDIAC EC HO OUTPT-ALL SITES Cons Supervisor Liquid Yeast's Choice [facility] Mar 01, 2025 09:00 AM Imaging - CT Scan Order LDCT INCIDENTAL PULMONARY NODULE [facility] Lab Results: +/- 30 days of the encounter This section includes the Chemistry and Hematology Lab Results on record with [place] for the patient. Radiology Reports and Pathology Reports are provided separately, in subsequent sections. Lab Results This section contains the Chemistry/Hematology Results that were resulted 30 days before or 30 daysafter the date of the Encounter. Date/Time Source Result Type Result - Unit Interpretation Reference Range Specimen Type Comment Feb 15, 2025 07:39 AM [facility] HEMOGLOBIN A1C BLOOD Specimen Type: BLOOD Comment: [...] January 20, 2024 12:23 PM Reporting Lab: [facility] [id number] Performing Lab: [facility] [id number] HEMOGLOBIN A1C 6.2 H 4.0-6.0 Feb 15, 2025 07:39 AM [facility] LIPID PANEL,NON-FASTING PLASMA Spec imen Type: PLASMA No comment entered. Ordering Provider: ROSA MARIA BAPTISTE Report Released Date/Time: January 20, 2024 12:23 PM Reporting Lab: [facility] [id number] Performing Lab: [facility] [id number] CHOLESTEROL 194 mg/dL <199 .HDL 50 mg/dL >40 LDL CALCULATION 106 mg/dL H <99 VLDL CALCULATION 38 mg/dL H <29 NON HDL CHOLESTEROL 144 mg/dL H <129 TRIG(NON FASTING) 188 mg/dL H <149 Feb 15, 2025 07:39 AM [facility] CBC BLOOD Specimen Type: BLOOD No comment entered. Ordering Provider: ROSA MARIA BAPTISTE Report Released Date/Time: January 20, 2024 12:23 PM Reporting Lab: [facility] [id number] Performing Lab: [facility] [id number] WBC 4.8 4.0-11.0 RBC 4.92 4.60-6.20 HGB 14.7 g/dL 13.5-17.9 HCT 43.7 41.0-54.0 MCV 88.8 fL 80.0-100.0 MCH 29.9 pg 27.0-33.0 MCHC 33.6 g/dL 32.0-37.5 PLT 191 150-400 MPV 8.8 fL L 9.1-13.0 RDW 12.4 11.5-14.5 Feb 15, 2025 07:39 AM [facility] COMPREHENSIVE METABOLIC PANEL+MG PLASMA Specimen Type: PLASMA No comment entered. Ordering Provider: ROSA MARIA BAPTISTE Report Released Date/Time: January 20, 2024 12:23 PM Reporting Lab: [facility] [id number] Performing Lab: [facility] [id number] CREATININE 0.9 mg/dL 0.7-1.2 UREA NITROGEN 11 [...] and tobacco- related health factors from the [place] facility where the Encounter took place. Current Smoking Status This section includes the most current smoking, or tobacco-related health factor, from the [place] facility where the Encounter took place. Date/Time Current Smoking Status Comment Mervin solitario January 20, 2024 11:30 AM VA-TOBACCO FORMER USER [facility] Tobacco Use History This section includes a history of the smoking, or tobacco-related health factors, that were collected on or before the date of the Encounter. The data comes from the [place] facility where the Encounter took place. Date/Time Smoking Status/Tobacco Use Comment Kourtney acstarr January 20, 2024 11:30 AM VA-TOBACCO QUIT 5 TO < 15 YRS [facility] January 13, 2023 03:00 PM VA-TOBACCO FORMER USER [facility] January 13, 2023 03:00 PM VA-TOBACCO QUIT 5 TO < 15 YRS [facility] Dec 24, 2021 02:00 PM VA-TOBACCO FORMER USER [facility] Dec 24, 2021 02:00 PM VA-TOBACCO QUIT 5 TO < 15 YRS [facility] Jan 07, 2021 01:00 PM VA-TOBACCO FORMER USER [facility] Jan 07, 2021 01:00 PM VA-TOBACCO QUIT 5 TO < 15 YRS [facility] Jan 08, 2019 09:55 AM VA-TOBACCO FORMER USER [facility] Jan 08, 2019 09:55 AM VA-TOBACCO QUIT 5 TO < 15 YRS [facility] Dec 20, 2017 12:40 PM FORMER TOBACCO USE >1Y <7Y [facility] Dec 31, 2016 09:21 AM FORMER TOBACCO USER 7Y OR GREATE R [facility] Dec 31, 2015 01:10 PM FORMER TOBACCO USE >1Y <7Y [facility] January 23, 2015 09:59 AM FORMER TOBACCO USER 7Y OR GREATE R [facility] Jan 09, 2014 02:03 PM CURRENT TOBACCO USER [facility] Apr 19, 2012 04:43 PM CURRENT TOBACCO USER [facility] January 28, 2011 09:00 AM CURRENT TOBACCO USER [facility] Jan 08, 2010 09:49 AM CURRENT TOBACCO USER [facility] Jun 24, 2007 09:07 AM CURRENT TOBACCO USER [facility] Advance Directives: All historical and current Section Date Range: From patient's date of to the date document was created. This section includes ALL of a patient's completed or amended [place] Advance and Rescinded Directives. The entries below indicate that a directive exists for the patient, but an actual copy is not included with this document. The data comes from all [facility]. Date Advance Directives Provider Source Jun 21, 2007 ADVANCE DIRECTIVE JOE QUINONES [facility] Encounter Notes: All associated encounter notes This section contains the clinical notes associated to the Encounter. Date/Time Encounter Note(s) Provider Source Feb 12, 2025 02:16 PM PHARMACY NOTE: LOCAL TITLE: PHARMACOTHERAPY-CLINICAL PHARMACY NOTE STANDARD TITLE: PHARMACY NOTE DATE OF NOTE: FEB 12, 2025@14:16 ENTRY DATE: FEB 12, 2025@14:16:24 AUTHOR: KILO LOCKWOODIGNER: URGENCY: STATUS: COMPLETED SUBJECT: primary care alcohol use screen follow up PHARMACOTHERAPY-CLINICAL PHARMACY NOTE Has [facility] SERVICE Date of service: FEB 12, 2025 Ashton was identified by the [place] Academic Detailing Alcohol Use Disorder Dashboard as having alcohol use higher than recommended limit on most recent AUDIT-C score assessed on 01/20/2024. Outreach was conducted via secure messaging on 01/21/2025. Previous MH/Substance Use Treatment: Outpatient MH Treatment History: - is NOT currently engaged with MH provider - Ashton has previously been engaged with outpatient MH services (last seen 2009) Alcohol Use Medication History: none per chart review Active problems - Computerized Problem List is the source for the followin. Adj Dis W/Mixed Mood 2. Low back pain (SNOMED CT 368167729) 3. Hyperlipidemia (SNOMED CT 04631446) 4. Arthritis of left hip (SNOMED CT 8538525791072408) 5. Cataract nos 6. Myopia 7. Astigmatism, [...] 19. Exposure to potentially hazardous substance (RUST [id number]) [facility] ER[facility] Documentation Initiative Active Medications: Active Outpatient Medications (including Supplies): Active Outpatient Medications Status 1) CELECOXIB 100MG CAP TAKE ONE CAPSULE BY MOUTH TWICE A ACTIVE DAY FOR JOINT PAIN 2) FLUTICASONE PROP 50MCG 120D NASAL INHL SPRAY 2 SPRAYS ACTIVE (S) IN EACH NOSTRIL EVERY DAY FOR CONGESTION 3) IPRATROPIUM BR 0.03% NASAL SPRAY SPRAY 1 SPRAY IN ACTIVE EACH NOSTRIL FOUR TIMES A DAY CHRONIC RHINITIS 4) KETOTIFEN 0.025% OPH SOLN INSTILL 1 DROP IN BOTH EYES ACTIVE TWICE A DAY 5) LIDOCAINE 4% TOP CREAM APPLY MODERATE AMOUNT ACTIVE TOPICALLY THREE TIMES A DAY NEEDED (COLD/ PAIN IN FEET) 6) LORATADINE 10MG TAB TAKE ONE TABLET BY MOUTH EVERY ACTIVE DAY FOR ALLERGIES 7) MENTHOL/M-SALICYLATE 10-15% TOP CREAM APPLY THIN ACTIVE LAYER TWICE A DAY NEEDED FOR HIP PAIN 8) MICONAZOLE NITRATE 2% TOP PWDR USE TO AFFECTED AREA ACTIVE TOPICALLY TWICE A DAY NEEDED FOR FUNGAL INFECTION 9) MUPIROCIN 2% OINT APPLY MODERATE AMOUNT TOPICALLY ACTIVE TWICE A DAY FOR INFECTION 10) OMEPRAZOLE 20MG EC CAP TAKE ONE CAPSULE BY MOUTH ACTIVE TWICE A DAY TO DECREASE STOMACH ACID -TAKE ON AN EMPTY STOMACH, AT LEAST 30 MINUTES BEFORE EATING 11) SINUS RINSE NEILMED PKT USE 1 PACKET EACH NOSTRIL ACTIVE TWICE A DAY NEEDED FOR CHRONIC RHINITIS Active Non-VA Medications Status 1) Non-VA MARINE LIPID (FISH OIL) CAP,ORAL ACTIVE 2) Non-VA MULTIVITAMINS/MINERALS TAB MOUTH ACTIVE 13 Total Medications LABS Vitals: ------- Wt: 250 lb [113.40 kg] (11/11/2022 14:57) Ht: 75.75 in [192.4 cm] (11/11/2022 14:57) BP: 167/83 (11/11/2022 14:57) HR: 71 (11/11/2022 14:57) BMI: 30.7 AUDIT-C: -------- Date Instrument Raw Trans Scale 01/20/2024 11:30 AUDC 8 Total 01/20/2024 10:29 PLASMA EGFRCKD >90 Ref: >=60 SODIUM 136 mmol/L 136 - 145 POTASSIUM 4.2 mmol/L 3.5 - 5.1 CHLORIDE 103 mmol/L 98 - 107 CO2 25 mmol/L 22 - 29 ANION GAP 8 mmol/L 5 - 15 GLUCOSE 108 H mg/dL 70 - 100 UREA NITROGEN 15 mg/dL 8 - 26 CREATININE 0.9 mg/dL 0.7 - 1.2 PROTEIN,TOTAL 7.8 g/dL 6.0 - 8.3 ALBUMIN 4.7 g/dL 3.5 - 5.2 CALCIUM 9.5 mg/dL 8.4 - 10.2 MAGNESIUM 1.9 mg/dL 1.6 - 2.6 BILIRUBIN, TOTAL 0.8 mg/dL 0.2 - 1.2 ALK 79 U/L 40 - 150 AST/SGOT 46 H U/L Ref: <=34 ALT/SGPT 73 H U/L Ref: <=55 CHOLESTEROL 200 H mg/dL Ref: <=199 TRIG(NON FASTING) 172 H mg/dL Ref: <=149 .HDL 56 mg/dL Ref: >=40 LDL CALCULATION 110 H mg/dL Ref: <=99 VLDL CALCULATION 34 H mg/dL Ref: <=29 NONHDLC 144 H mg/dL Ref: <=129 ASSESSMENT: Ashton is a 59 y/o MALE who was identified by [place] Academic Detailing Alcohol Use Disorder Dashboard as having alcohol use higher than recommended limit on last AUDIT-C assessment completed on 01/20/2024. Men who score 4 or higher on the AUDIT-C are considered to consume above the recommended limit of alcohol use and are at increased risk for harm. Outreach was conducted via secure messaging on 01/21/25. Ashton responded on 01/21/2025 and declined AUD medication or other services at this time. Would encourage continued discussion at next visit regarding 's interest in reducing alcohol use. Ashton would likely benefit from pharmacotherapy to help reduce alcohol intake. o May consider offering the following pharmacotherapy options at next encounter, if appropriate: - Naltrexone - Acamprosate - Disulfiram - Gabapentin - Topiramate o May also consider consultation with or referral to PACT team pharmacist or pharmacist Nam Boyle or Adelita Fierro o If interested, provide with ARS number [phone] to schedule intake appointment. PLAN: 1. Outreach was conducted via secure messaging to offer AUD pharmacotherapy and other resources. declined at this time. Alerting primary care provider to consider further discussion of resources noted above Time spent: 30 minutes /petros/ KILO LOCKWOOD NUT CRACKER Signed: 02/12/2025 14:21 Receipt Acknowledged By: 02/12/2025 14:24 /petros/ ALEX RIVERA, PHARMD, [facility] Clinical Pharmacist Practitioner * AWAITING SIGNATURE * ROSA MARIA BAPTISTE 02/12/2025 ADDENDUM STATUS: COMPLETED TYPE OF SUPERVISION: Available Healthcare Science Specialist precepted the above trainee for this encounter, including supervision and review of documentation. Assessment and plan reflects our discussion. /petros/ ALEX RIVERA, MEHREEN, BCPP Mental Health Clinical Pharmacist Practitioner Signed: 02/12/2025 14:25 KILO LOCKWOOD [facility]
--- OUTSIDE RECORDS SUMMARY | 2025-02-14 04:02 | XMS_ITS | Encounter Summary ---
Author Name [facility] [place] Address [address] [place] [address] Care Team Providers Care Bowling Ball Grader Name Role Phone ROSA MARIA BAPTISTE Primary [...] [place] PREFERRED PROVIDER ORGANIZAT ION (PPO) SIDDHARTHA LIORKRYSTLE LABOR ERS H Sep 12, 2017 [id number] TOMMY ESCALANTE PATIENT [facility] 2024 [facility] Sep 13, 2024 [facility] [id number] TOMMY ESCALANTE PATIENT Selected Encounter This section includes the information on record at [place] for the Encounter. Date/Time Encounter Type Encounter Description Reason Pro vider Source Feb 14, 2025 09:02 AM Outpatient Encounter OPHTHALMOLOGY IHE Encounter Template Text not used by [facility] Plan of Treatment: Future Appointments (+ 6 [...] 20 appointments. The data comes from all [facility]. Appointment Date/Time Appointment Type Appointme nt Facility Name Feb 15, 2025 08:00 AM AMBULATORY - NONE [facility] Feb 15, 2025 09:00 AM AMBULATORY - MEDICINE [facility] Mar 01, 2025 09:00 AM [facility] Apr 10, 2025 09:00 AM [facility] Apr 15, 2025 10:00 AM AMBULATORY - MEDICINE [facility] Jul 02, 2025 09:30 AM [facility] Active, Pending, and Scheduled Orders This section includes a listing of several types of active, pending, and scheduled orders, including clinic medications orders, diagnostic test orders, procedure orders and consult orders; where the start date of the order is 45 days before the date of the Encounter or 45 days after the date of theEncounter. The data comes from all [facility]. Test Date/Time Test Type Test Details Facility Name Feb 17, 2025 11:20 AM Consult Order CARDIAC EC HO OUTPT-ALL SITES Cons Manager Study's Choice [facility] Mar 01, 2025 09:00 AM Imaging - CT Scan Order LDCT INCIDENTAL PULMONARY NODULE [facility] Lab Results: +/- 30 days of the encounter This section includes the Chemistry and Hematology Lab Results on record with [place] for the patient. Radiology Reports and Pathology Reports are provided separately, in subsequent sections. Lab Results This section contains the Chemistry/Hematology Results that were resulted 30 days before or 30 daysafter the date of the Encounter. Date/Time Source Result Type Result - Unit Interpretation Reference Range Specimen Type Comment Feb 15, 2025 07:39 AM [facility] HEMOGLOBIN A1C BLOOD Specimen Type: BLOOD Comment: [...] January 20, 2024 12:23 PM Reporting Lab: [facility] [id number] Performing Lab: [facility] [phone] HEMOGLOBIN A1C 6.2 H 4.0-6.0 Feb 15, 2025 07:39 AM [facility] LIPID PANEL,NON-FASTING PLASMA Spec imen Type: PLASMA No comment entered. Ordering Provider: ROSA MARIA BAPTISTE Report Released Date/Time: January 20, 2024 12:23 PM Reporting Lab: [facility] [id number] Performing Lab: [facility] [id number] CHOLESTEROL 194 mg/dL <199 .HDL 50 mg/dL >40 LDL CALCULATION 106 mg/dL H <99 VLDL CALCULATION 38 mg/dL H <29 NON HDL CHOLESTEROL 144 mg/dL H <129 TRIG(NON FASTING) 188 mg/dL H <149 Feb 15, 2025 07:39 AM [facility] CBC BLOOD Specimen Type: BLOOD No comment entered. Ordering Provider: ROSA MARIA BAPTISTE Report Released Date/Time: January 20, 2024 12:23 PM Reporting Lab: [facility] [id number] Performing Lab: [facility] [id number] WBC 4.8 4.0-11.0 RBC 4.92 4.60-6.20 HGB 14.7 g/dL 13.5-17.9 HCT 43.7 41.0-54.0 MCV 88.8 fL 80.0-100.0 MCH 29.9 pg 27.0-33.0 MCHC 33.6 g/dL 32.0-37.5 PLT 191 150-400 MPV 8.8 fL L 9.1-13.0 RDW 12.4 11.5-14.5 Feb 15, 2025 07:39 AM [facility] COMPREHENSIVE METABOLIC PANEL+MG PLASMA Specimen Type: PLASMA No comment entered. Ordering Provider: ROSA MARIA BAPTISTE Report Released Date/Time: January 20, 2024 12:23 PM Reporting Lab: [facility] [id number] Performing Lab: [facility] [phone] CREATININE 0.9 mg/dL 0.7-1.2 UREA NITROGEN 11 [...] and tobacco- related health factors from the [place] facility where the Encounter took place. Current Smoking Status This section includes the most current smoking, or tobacco-related health factor, from the [place] facility where the Encounter took place. Date/Time Current Smoking Status Comment Facil ity January 20, 2024 11:30 AM VA-TOBACCO QUIT 5 TO < 15 YRS [facility] Tobacco Use History This section includes a history of the smoking, or tobacco-related health factors, that were collected on or before the date of the Encounter. The data comes from the [place] facility where the Encounter took place. Date/Time Smoking Status/Tobacco Use Comment F acstarr January 20, 2024 11:30 AM VA-TOBACCO QUIT 5 TO < 15 YRS [facility] January 13, 2023 03:00 PM VA-TOBACCO FORMER USER [facility] January 13, 2023 03:00 PM VA-TOBACCO QUIT 5 TO < 15 YRS [facility] Dec 24, 2021 02:00 PM VA-TOBACCO FORMER USER [facility] Dec 24, 2021 02:00 PM VA-TOBACCO QUIT 5 TO < 15 YRS [facility] Jan 07, 2021 01:00 PM VA-TOBACCO FORMER USER [facility] Jan 07, 2021 01:00 PM VA-TOBACCO QUIT 5 TO < 15 YRS [facility] Jan 08, 2019 09:55 AM VA-TOBACCO FORMER USER [facility] Jan 08, 2019 09:55 AM VA-TOBACCO QUIT 5 TO < 15 YRS [facility] Dec 20, 2017 12:40 PM FORMER TOBACCO USE >1Y <7Y [facility] Dec 31, 2016 09:21 AM FORMER TOBACCO USER 7Y OR GREATE R [facility] Dec 31, 2015 01:10 PM FORMER TOBACCO USE >1Y <7Y [facility] January 23, 2015 09:59 AM FORMER TOBACCO USER 7Y OR GREATE R [facility] Jan 09, 2014 02:03 PM CURRENT TOBACCO USER [facility] Apr 19, 2012 04:43 PM CURRENT TOBACCO USER [facility] January 28, 2011 09:00 AM CURRENT TOBACCO USER [facility] Jan 08, 2010 09:49 AM CURRENT TOBACCO USER [facility] Jun 24, 2007 09:07 AM CURRENT TOBACCO USER [facility] Advance Directives: All historical and current Section Date Range: From patient's date of to the date document was created. This section includes ALL of a patient's completed or amended [place] Advance and Rescinded Directives. The entries below indicate that a directive exists for the patient, but an actual copy is not included with this document. The data comes from all [place] facilities. Date Advance Directives Provider Source Jun 21, 2007 ADVANCE DIRECTIVE JOE QUINONES [facility] Encounter Notes: All associated encounter notes This section contains the clinical notes associated to the Encounter. Date/Time Encounter Note(s) Provider Source Feb 14, 2025 09:02 AM REPORT OF CONTACT: LOCAL TITLE: APPOINTMENT SCHEDULING NOTE STANDARD TITLE: REPORT OF CONTACT DATE OF NOTE: FEB 14, 2025@09:02 ENTRY DATE: FEB 14, 2025@09:02:40 AUTHOR: MONE MULLER EXP COSIGNER: URGENCY: STATUS: COMPLETED Attempted to schedule Cancellation Clinic cancellation Contact attempt made to 1st attempt Telephone 2nd attempt Letter - Sent letter by regular [place] mail to address on file: TOMMY ESCAL[address]TE [id number], [place] [address] Disposition order request after Feb Left message on voice mail to call back to this number [phone] If calls back, schedule appt for: 9m VTD OCT Mac FED 09/26/2024 /petros/ MONE OSULLIVAN Signed: 02/14/2025 09:03 MONE MULLER [facility]
--- OUTSIDE RECORDS SUMMARY | 2025-02-15 03:49 | XMS_ITS | Encounter Summary ---
Author Name [facility] [facility] [place] Address [address] [place] [address] Care Team Providers Care Ruling Technician Name Role Phone ROSA MARIA BAPTISTE Primary [...] [facility] Sep 12, 2017 [id number] TOMMY ESCALANTE PATIENT [facility] 2024 [facility] WNR Sep 13, 2024 [facility] [id number] TOMMY ESCALANTE PATIENT Selected Encounter This section includes the information on record at [place] for the Encounter. Date/Time Encounter Type Encounter Description Reason Pro vider Source Feb 15, 2025 08:49 AM Outpatient Encounter PRIMARY CARE/MEDICINE IHE Encounter Template Text not used by [...] 20 appointments. The data comes from all [facility]. Appointment Date/Time Appointment Type Appointme nt Facility Name Mar 01, 2025 09:00 AM AMBULATORY - NONE RON HOANG [facility] Apr 10, 2025 09:00 AM [facility] Apr 15, 2025 10:00 AM AMBULATORY - MEDICINE GIOVANNY REBOLLEDO [facility] Jul 02, 2025 09:30 AM AMBULATORY - SURGERY SIDDHARTHA EM [facility] Active, Pending, and Scheduled Orders This section includes a listing of several types of active, pending, and scheduled orders, including clinic medications orders, diagnostic test orders, procedure orders and consult orders; where the start date of the order is 45 days before the date of the Encounter or 45 days after the date of theEncounter. The data comes from all [facility]. Test Date/Time Test Type Test Details Facility Name Feb 17, 2025 11:20 AM Consult Order CARDIAC EC HO OUTPT-ALL SITES Cons Information And Data Architect Analyst's Choice [facility] Mar 01, 2025 09:00 AM Imaging - CT Scan Order LDCT INCIDENTAL PULMONARY NODULE [facility] Lab Results: +/- 30 days [...] Type Comment Feb 15, 2025 07:39 AM [facility] CBC BLOOD Specimen Type: BLOOD No comment entered. Ordering Provider: ROSA MARIA BAPTISTE Report Released Date/Time: January 20, 2024 12:23 PM Reporting Lab: [facility] [id number] Performing Lab: [facility] [id number] WBC 4.8 4.0-11.0 RBC 4.92 4.60-6.20 HGB 14.7 g/dL 13.5-17.9 HCT 43.7 41.0-54.0 MCV 88.8 fL 80.0-100.0 MCH 29.9 pg 27.0-33.0 MCHC 33.6 g/dL 32.0-37.5 PLT 191 150-400 MPV 8.8 fL L 9.1-13.0 RDW 12.4 11.5-14.5 Feb 15, 2025 07:39 AM [facility] COMPREHENSIVE METABOLIC PANEL+MG PLASMA Specimen Type: PLASMA No comment entered. Ordering Provider: ROSA MARIA BAPTISTE Report Released Date/Time: January 20, 2024 12:23 PM Reporting Lab: [facility] [id number] Performing Lab: [facility] [id number] CREATININE 0.9 mg/dL 0.7-1.2 UREA NITROGEN 11 [...] U/L H 11-34 .CREAT EGFR(CKD-EPI) >90 >60 Feb 15, 2025 07:39 AM [facility] HEMOGLOBIN A1C BLOOD Specimen Type: BLOOD Comment: Values obtained from A1C measurements can vary. For typical A1C assays, a reported value of 7.0 could actually be between 6.7 and 7.3 if measured by a reference method. A reported value of 9.0 could actually be between 8.7 and 9.3. Ref: http://www.ngsp.org/CAPdata.asp Ordering Provider: ROSA MARIA BAPTISTE Report Released Date/Time: January 20, 2024 12:23 PM Reporting Lab: [facility] [id number] Performing Lab: [facility] [id number] HEMOGLOBIN A1C 6.2 H 4.0-6.0 Feb 15, 2025 07:39 AM [facility] LIPID PANEL,NON-FASTING PLASMA Spec imen Type: PLASMA No comment entered. Ordering Provider: ROSA MARIA BAPTISTE Report Released Date/Time: January 20, 2024 12:23 PM Reporting Lab: [facility] [id number] Performing Lab: [facility] [phone] CHOLESTEROL 194 mg/dL <199 .HDL 50 mg/dL >40 LDL CALCULATION 106 mg/dL H <99 VLDL CALCULATION 38 mg/dL H <29 NON HDL CHOLESTEROL 144 mg/dL H <129 TRIG(NON FASTING) 188 mg/dL H <149 Vital Signs: All taken on the encounter date This section contains inpatient and outpatient Vital Signs collected on the date of the Encounter. Date/Time Temperature Pulse Blood Pressure Respiratory Rate SP02 Pain Height Weight Body Mass Index Source Feb 15, 2025 09:08 AM 128/72 [facility] Feb 15, 2025 09:02 AM 97.1 70 144/72 16 96 0 66 200 32 [facility] Social History: Smoking Status (Most current) and [...] Date/Time Current Smoking Status Comment Mervin solitario Feb 15, 2025 09:00 AM [place] FORMER CIGARETTES [facility] Tobacco Use History This section includes a history of the smoking, or tobacco-related health factors, that were collected on or before the date of the Encounter. The data comes from the [place] facility where the Encounter took place. Date/Time Smoking Status/Tobacco Use Comment Kourtney hammer Feb 15, 2025 09:00 AM [place]-TO[place] USE FOR[place] CIGARETTES [facility] January 20, 2024 11:30 AM [place]-TOBACCO FORMER USER [facility] January 20, 2024 11:30 AM VA-TOBACCO QUIT 5 TO < 15 YRS [facility] January 13, 2023 03:00 PM [place]-TOBACCO FORMER USER [facility] January 13, 2023 03:00 PM VA-TOBACCO QUIT 5 TO < 15 YRS [facility] Dec 24, 2021 02:00 PM [place]-TOBACCO FORMER USER [facility] Dec 24, 2021 02:00 PM VA-TOBACCO QUIT 5 TO < 15 YRS [facility] Jan 07, 2021 01:00 PM [place]-TOBACCO FORMER USER [facility] Jan 07, 2021 01:00 PM VA-TOBACCO QUIT 5 TO < 15 YRS [facility] Jan 08, 2019 09:55 AM [place]-TOBACCO FORMER USER [facility] Jan 08, 2019 09:55 AM [place]-TOBACCO QUIT 5 TO < 15 YRS [facility] Dec 20, 2017 12:40 PM FORMER TOBACCO USE >1Y <7Y [facility] Dec 31, 2016 09:21 AM FORMER TOBACCO USER 7Y OR GREATE R [facility] Dec 31, 2015 01:10 PM FORMER TOBACCO USE >1Y <7Y [facility] January 23, 2015 09:59 AM FORMER TOBACCO USER 7Y OR GREATE R [facility] Jan 09, 2014 02:03 PM CURRENT TOBACCO USER [facility] Apr 19, 2012 04:43 PM CURRENT TOBACCO USER [facility] January 28, 2011 09:00 AM CURRENT TOBACCO USER [facility] Jan 08, 2010 09:49 AM CURRENT TOBACCO USER [facility] Jun 24, 2007 09:07 AM CURRENT TOBACCO USER [facility] Advance Directives: All historical and [...] Jun 21, 2007 ADVANCE DIRECTIVE JOE QUINONES [facility] Encounter Notes: All associated encounter notes This section contains the clinical notes associated to the Encounter. Date/Time Encounter Note(s) Provider Source Feb 15, 2025 08:49 AM ADVANCE DIRECTIVE: LOCAL TITLE: AD NOTIFICATION AND SCREENING STANDARD TITLE: ADVANCE DIRECTIVE DATE OF NOTE: FEB 15, 2025@08:49 ENTRY DATE: FEB 15, 2025@08:51:28 AUTHOR: PRISCILA JONES COSIGNER: URGENCY: STATUS: COMPLETED ADVANCE DIRECTIVE NOTIFICATION: Patient was given written notification of the following rights: 1. Accept or refuse any medical treatment. 2. Complete a durable power of workers compensation attorney for health care. 3. Complete a living will. ADVANCE DIRECTIVE SCREENING: Does patient have an Advance Directive? The patient has an Advance Directive. Does the patient wish to make any changes or revoke their current Advance Directive? Yes, the patient has an Advance Directive, but it is not in the medical record. [place] was asked to obtain a copy for their medical record. /petros/ PRISCILA JONES MSA Signed: 02/15/2025 08:53 PRISCILA JONES [facility]
--- OUTSIDE RECORDS SUMMARY | 2025-02-15 04:00 | XMS_ITS | Encounter Summary ---
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 TWICE A ACTIVE DAY FOR INFECTION OMEPRAZOLE 20MG EC CAP TAKE ONE CAPSULE BY MOUTH TWICE A ACTIVE DAY TO DECREASE STOMACH ACID -TAKE ON AN EMPTY STOMACH, AT LEAST 30 MINUTES BEFORE EATING SINUS RINSE NEILMED PKT USE 1 PACKET EACH NOSTRIL TWICE A ACTIVE DAY NEEDED FOR CHRONIC RHINITIS Non-VA MARINE LIPID (FISH OIL) CAP,ORAL ACTIVE Non-VA MULTIVITAMINS/MINERALS TAB MOUTH ACTIVE Over the Counter/Herbal Medications: The patient denies taking any outside medications or herbals. Tobacco Use Screening: The patient is a former cigarette smoker. The patient has never used other types of tobacco. Alcohol Use Screen (AUDIT-C): Alcohol Screen: SCREEN FOR ALCOHOL (AUDIT-C) An alcohol screening test (AUDIT-C) was positive (score=5). 1. How often did you have a drink containing alcohol in the past year? Consider a drink to be a 12 ounce can or bottle of regular beer, 8 ounces of malt liquor, a 5 ounce glass of table wine, or a 1.5 ounce shot of liquor (like scotch, gin, or vodka). Four or more times a week 2. How many drinks containing alcohol did you have on a typical day when you were drinking in the past year? Three or four drinks 3. How often did you have six or more drinks on one occasion in the past year? Never Licensed Independent Provider notified of positive screen and need for follow-up. Name of provider notified: rimma ng Homelessness/Food Insecurity Screen: In the past 2 months, have you been living in stable housing that you own, rent, or stay in as part of a household? Yes - Living in stable housing. Are you worried or concerned that in the next 2 months you may NOT have stable housing that you own, rent, or stay in as part of a household? No - Not worried about housing near future The reports the following: Within the past 12 months, you worried whether your food would run out before you got money to buy more. Never true Within the past 12 months, the food you bought just didn't last and you didn't have money to get more. Never true Food Assistance Programs [facility] Food Assistance [facility] Depression Screening: Perform PHQ-2 A PHQ-2 screen was performed. The score was 0 which is a negative screen for depression. Over the past two weeks, how often have you been bothered by the following problems? 1. Little interest or pleasure in doing things Not at all 2. Feeling down, depressed, or hopeless Not at all Nursing Annual Screening: Fall History Screen During the past 12 months, have you had any falls? Patient does not report any falls in the past 12 months. MEDICATIONS: Patient does not have an active prescription for one of the following medications: Antihypertensives, Antidepressants, Antipsychotics, Diuretics, or Opioid Analgesics (Contolled Substance medications used for pain). Script Talk Screen Are you able to read your prescription bottles with your glasses, magnifiers or other aids? Yes or patient not taking any prescriptions. Skin Screen Patient reports any current pressure ulcers, a history of pressure ulcers, or a wound from a chief medical technologist or Patient is bed-confined or a wheelchair-user or Patient requires assistance to transfer/change position No, Skin Screen is Negative Home Abuse/Violence Screen Is your home free of abuse and violence? Yes MOVE! Program Screen Body Mass Index (BMI)= 32.3 [place]: Collection DT Specimen Test Name Result Units Ref Range 02/15/2025 07:39 BLOOD !! HEMOGLOBIN A1C 6.2 H % 4.0 - 6.0 !! Indicates COMMENTS AVAILABLE...Refer to Interim Lab Report. [facility] Hgb A1C: No data available [place] Hgb A1C: No data available Point of Care Hgb A1C: POC HGB A1C____ No Outpatient Nutrition Screen Body Mass Index (BMI)= 32.3 [place]: Collection DT Specimen Test Name Result Units Ref Range 02/15/2025 07:39 BLOOD !! HEMOGLOBIN A1C 6.2 H % 4.0 - 6.0 !! Indicates COMMENTS AVAILABLE...Refer to Interim Lab Report. [facility] Hgb A1C: No data available [place] Hgb A1C: No data available Point of Care Hgb A1C: POC HGB A1C____ Is patient's BMI less than 18.5? No Does patient have swallowing, coughing, or chewing problems affecting oral intake? No Has patient experienced unplanned weight loss or gain greater than 10 pounds over the last 2 months? No Is patient's Hgb A1C (Glycosylated Hemoglobin) greater than 9.5? No Is patient receiving Total Parenteral Nutrition (TPN) or Tube Feedings? No Client Assistive Service (KARON) Screen Does the patient require assistance with outpatient visit? 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
--- OUTSIDE RECORDS SUMMARY | 2025-02-17 19:00 | XMS_ITS | Encounter Summary ---
Author Name [facility] [place] Address [address] [place] [address] Care Team Providers Care Community Education Specialist Name Role Phone ROSA MARIA BAPTISTE Primary [...] [facility] H Sep 12, 2017 [id number] TOMMY ESCALANTE PATIENT [facility] WNR Sep 13, 2024 [facility] [id number] TOMMY ESCALANTE PATIENT Selected Encounter This section includes the information on record at [place] for the Encounter. Date/Time Encounter Type Encounter Description Reason Pro vider Source Feb 18, 2025 12:00 AM Outpatient Encounter EVENT (HISTORICAL) IHE Encounter Template Text not used by [place] Plan of Treatment: Future Appointments (+ 6 [...] 20 appointments. The data comes from all [facility]. Appointment Date/Time Appointment Type Appointme nt Facility Name Mar 01, 2025 09:00 AM AMBULATORY - NONE RON HOANG [facility] Apr 10, 2025 09:00 AM AMBULATORY - NONE [facility] Apr 15, 2025 10:00 AM AMBULATORY - MEDICINE GIOVANNY REBOLLEDO [facility] Jul 02, 2025 09:30 AM AMBULATORY - SURGERY SIDDHARTHA EM [facility] Active, Pending, and Scheduled Orders This section includes a listing of several types of active, pending, and scheduled orders, including clinic medications orders, diagnostic test orders, procedure orders and consult orders; where the start date of the order is 45 days before the date of the Encounter or 45 days after the date of theEncounter. The data comes from all [facility]. Test Date/Time Test Type Test Details Facility Name Feb 17, 2025 11:20 AM Consult Order CARDIAC EC HO OUTPT-ALL SITES Cons Stay [facility] Choice [facility] Mar 01, 2025 09:00 AM Imaging - CT Scan Order LDCT INCIDENTAL PULMONARY NODULE [facility] Lab Results: +/- 30 days of the encounter This section includes the Chemistry and Hematology Lab Results on record with [place] for the patient. Radiology Reports and Pathology Reports are provided separately, in subsequent sections. Lab Results This section contains the Chemistry/Hematology Results that were resulted 30 days before or 30 daysafter the date of the Encounter. Date/Time Source Result Type Result - Unit Interpretation Reference Range Specimen Type Comment Feb 15, 2025 07:39 AM [facility] HEMOGLOBIN A1C BLOOD Specimen Type: BLOOD [...] January 20, 2024 12:23 PM Reporting Lab: [facility] [id number] Performing Lab: [facility] [id number] HEMOGLOBIN A1C 6.2 H 4.0-6.0 Feb 15, 2025 07:39 AM [facility] LIPID PANEL,NON-FASTING PLASMA Spec imen Type: PLASMA No comment entered. Ordering Provider: ROSA MARIA BAPTISTE Report Released Date/Time: January 20, 2024 12:23 PM Reporting Lab: [facility] [id number] Performing Lab: [facility] [id number] CHOLESTEROL 194 mg/dL <199 .HDL 50 mg/dL >40 LDL CALCULATION 106 mg/dL H <99 VLDL CALCULATION 38 mg/dL H <29 NON HDL CHOLESTEROL 144 mg/dL H <129 TRIG(NON FASTING) 188 mg/dL H <149 Feb 15, 2025 07:39 AM [facility] CBC BLOOD Specimen Type: BLOOD No comment entered. Ordering Provider: ROSA MARIA BAPTISTE Report Released Date/Time: January 20, 2024 12:23 PM Reporting Lab: [facility] [id number] Performing Lab: [facility] [id number] WBC 4.8 4.0-11.0 RBC 4.92 4.60-6.20 HGB 14.7 g/dL 13.5-17.9 HCT 43.7 41.0-54.0 MCV 88.8 fL 80.0-100.0 MCH 29.9 pg 27.0-33.0 MCHC 33.6 g/dL 32.0-37.5 PLT 191 150-400 MPV 8.8 fL L 9.1-13.0 RDW 12.4 11.5-14.5 Feb 15, 2025 07:39 AM [facility] COMPREHENSIVE METABOLIC PANEL+MG PLASMA Specimen Type: PLASMA No comment entered. Ordering Provider: ROSA MARIA BAPTISTE Report Released Date/Time: January 20, 2024 12:23 PM Reporting Lab: [facility] [address] Performing Lab: [facility] [address] CREATININE 0.9 mg/dL 0.7-1.2 UREA NITROGEN 11 [...] and tobacco- related health factors from the [place] facility where the Encounter took place. Current Smoking Status This section includes the most current smoking, or tobacco-related health factor, from the [place] facility where the Encounter took place. Date/Time Current Smoking Status Comment Mervin solitario Feb 15, 2025 09:00 AM VA-TOBACCO NEVER USED OTHER TYPE [facility] Tobacco Use History This section includes a history of the smoking, or tobacco-related health factors, that were collected on or before the date of the Encounter. The data comes from the [place] facility where the Encounter took place. Date/Time Smoking Status/Tobacco Use Comment Kourtney hammer Feb 15, 2025 09:00 AM VA-TOBACCO USE FORMER CIGARETTES [facility] January 20, 2024 11:30 AM VA-TOBACCO FORMER USER [facility] January 20, 2024 11:30 AM VA-TOBACCO QUIT 5 TO < 15 YRS [facility] January 13, 2023 03:00 PM VA-TOBACCO FORMER USER [facility] January 13, 2023 03:00 PM VA-TOBACCO QUIT 5 TO < 15 YRS [facility] Dec 24, 2021 02:00 PM VA-TOBACCO FORMER USER [facility] Dec 24, 2021 02:00 PM VA-TOBACCO QUIT 5 TO < 15 YRS [facility] Jan 07, 2021 01:00 PM VA-TOBACCO FORMER USER [facility] Jan 07, 2021 01:00 PM VA-TOBACCO QUIT 5 TO < 15 YRS [facility] Jan 08, 2019 09:55 AM VA-TOBACCO FORMER USER [facility] Jan 08, 2019 09:55 AM VA-TOBACCO QUIT 5 TO < 15 YRS [facility] Dec 20, 2017 12:40 PM FORMER TOBACCO USE >1Y <7Y [facility] Dec 31, 2016 09:21 AM FORMER TOBACCO USER 7Y OR GREATE R [facility] Dec 31, 2015 01:10 PM FORMER TOBACCO USE >1Y <7Y [facility] January 23, 2015 09:59 AM FORMER TOBACCO USER 7Y OR GREATE R [facility] Jan 09, 2014 02:03 PM CURRENT TOBACCO USER [facility] Apr 19, 2012 04:43 PM CURRENT TOBACCO USER [facility] January 28, 2011 09:00 AM CURRENT TOBACCO USER [facility] Jan 08, 2010 09:49 AM CURRENT TOBACCO USER [facility] Jun 24, 2007 09:07 AM CURRENT TOBACCO USER [facility] Advance Directives: All historical and current Section Date Range: From patient's date of to the date document was created. This section includes ALL of a patient's completed or amended [place] Advance and Rescinded Directives. The entries below indicate that a directive exists for the patient, but an actual copy is not included with this document. The data comes from all [place] facilities. Date Advance Directives Provider Source Jun 21, 2007 ADVANCE DIRECTIVE JOE QUINONES [facility]
--- OUTSIDE RECORDS SUMMARY | 2025-02-18 05:59 | XMS_ITS | Encounter Summary ---
Author Name [facility] [place] Address [address] [place] [address] Care Team Providers Care Product Design Engineer Name Role Phone ROSA MARIA BAPTISTE Primary [...] [place] PREFERRED PROVIDER ORGANIZAT ION (PPO) SIDDHARTHA MURRAY ERS H Sep 12, 2017 [id number] TOMMY ESCALANTE PATIENT [facility] [address] [facility] Sep 13, 2024 [facility] [id number] [phone] TOMMY ESCALANTE PATIENT Selected Encounter This section includes the information on record at [place] for the Encounter. Date/Time Encounter Type Encounter Description Reason Pro vider Source Feb 18, 2025 10:59 AM Outpatient Encounter GASTROENTEROLOGY ICD-10-CM Z12.11 Encounter for screening for malignant neoplasm of colon USMAN MORALES IHLorelei Encounter Template Text not used by [place] Assessments - Encounter Diagnoses This section includes the primary and secondary diagnoses documented for the Encounter. Date/Time Primary/Secondary Diagnosis Diagnosis Name Provider Source Feb 18, 2025 11:01 AM PRIMARY Encounter for screening for malignant neoplasm of colon USMAN MORALES [facility] Plan of Treatment: Future Appointments (+ 6 months) and Future Tests (+/- 45 days) The Plan of Treatment section includes future care activities for the patient from all [place] [facility] This section includes future appointments and future orders which are active, pending or scheduled. Future Appointments This section includes appointments that were scheduled to occur 6 months from the date of the Encounter, up to a maximum of 20 appointments. The data comes from all [facility]. Appointment Date/Time Appointment Type Appointme nt Facility Name Mar 01, 2025 09:00 AM AMBULATORY - NONE [facility] Apr 10, 2025 09:00 AM AMBULATORY - NONE [facility] Apr 15, 2025 10:00 AM AMBULATORY - MEDICINE CHANDUNichole [facility] Jul 02, 2025 09:30 AM AMBULATORY - SURGERY [facility] Active, Pending, and Scheduled Orders This section includes a listing of several types of active, pending, and scheduled orders, including clinic medications orders, diagnostic test orders, procedure orders and consult orders; where the start date of the order is 45 days before the date of the Encounter or 45 days after the date of theEncounter. The data comes from all [facility]. Test Date/Time Test Type Test Details Facility Name Feb 17, 2025 11:20 AM Consult Order CARDIAC EC HO OUTPT-ALL SITES Cons Soil [facility] Choice [facility] Mar 01, 2025 09:00 AM Imaging - CT Scan Order LDCT INCIDENTAL PULMONARY NODULE [facility] Lab Results: +/- 30 days of the encounter This section includes the Chemistry and Hematology Lab Results on record with [place] for the patient. Radiology Reports and Pathology Reports are provided separately, in subsequent sections. Lab Results This section contains the Chemistry/Hematology Results that were resulted 30 days before or 30 daysafter the date of the Encounter. Date/Time Source Result Type Result - Unit Interpretation Reference Range Specimen Type Comment Feb 15, 2025 07:39 AM [facility] HEMOGLOBIN A1C BLOOD Specimen Type: BLOOD Comment: [...] January 20, 2024 12:23 PM Reporting Lab: [facility] [id number] Performing Lab: [facility] [address] HEMOGLOBIN A1C 6.2 H 4.0-6.0 Feb 15, 2025 07:39 AM [facility] LIPID PANEL,NON-FASTING PLASMA Spec imen Type: PLASMA No comment entered. Ordering Provider: ROSA MARIA BAPTISTE Report Released Date/Time: January 20, 2024 12:23 PM Reporting Lab: [facility] [address] Performing Lab: [facility] [address] CHOLESTEROL 194 mg/dL <199 .HDL 50 mg/dL >40 LDL CALCULATION 106 mg/dL H <99 VLDL CALCULATION 38 mg/dL H <29 NON HDL CHOLESTEROL 144 mg/dL H <129 TRIG(NON FASTING) 188 mg/dL H <149 Feb 15, 2025 07:39 AM [facility] CBC BLOOD Specimen Type: BLOOD No comment entered. Ordering Provider: ROSA MARIA BAPTISTE Report Released Date/Time: January 20, 2024 12:23 PM Reporting Lab: [facility] [address] Performing Lab: [facility] [address] WBC 4.8 4.0-11.0 RBC 4.92 4.60-6.20 HGB 14.7 g/dL 13.5-17.9 HCT 43.7 41.0-54.0 MCV 88.8 fL 80.0-100.0 MCH 29.9 pg 27.0-33.0 MCHC 33.6 g/dL 32.0-37.5 PLT 191 150-400 MPV 8.8 fL L 9.1-13.0 RDW 12.4 11.5-14.5 Feb 15, 2025 07:39 AM [facility] COMPREHENSIVE METABOLIC PANEL+MG PLASMA Specimen Type: PLASMA No comment entered. Ordering Provider: ROSA MARIA BAPTISTE Report Released Date/Time: January 20, 2024 12:23 PM Reporting Lab: [facility] [address] Performing Lab: [facility] [address] CREATININE 0.9 mg/dL 0.7-1.2 UREA NITROGEN 11 [...] and tobacco- related health factors from the [place] facility where the Encounter took place. Current Smoking Status This section includes the most current smoking, or tobacco-related health factor, from the [place] facility where the Encounter took place. Date/Time Current Smoking Status Comment Mervin solitario Feb 15, 2025 09:00 AM VA-TOBACCO USE FORMER CIGARETTES [facility] Tobacco Use History This section includes a history of the smoking, or tobacco-related health factors, that were collected on or before the date of the Encounter. The data comes from the [place] facility where the Encounter took place. Date/Time Smoking Status/Tobacco Use Comment Kourtney hammer Feb 15, 2025 09:00 AM VA-TOBACCO USE FORMER CIGARETTES [facility] January 20, 2024 11:30 AM VA-TOBACCO FORMER USER [facility] January 20, 2024 11:30 AM VA-TOBACCO QUIT [...] ALL of a patient's completed or amended [place] Advance and Rescinded Directives. The entries below indicate that a directive exists for the patient, but an actual copy is not included with this document. The data comes from all [place] facilities. Date Advance Directives Provider Source Jun 21, 2007 ADVANCE DIRECTIVE JOE QUINONES [facility] Encounter Notes: All associated encounter notes This section contains the clinical notes associated to the Encounter. Date/Time Encounter Note(s) Provider Source Feb 18, 2025 10:59 AM GASTROENTEROLOGY C ONSULT: LOCAL TITLE: GASTROENTEROLOGY CONSULT STANDARD TITLE: GASTROENTEROLOGY CONSULT DATE OF NOTE: FEB 18, 2025@10:59 ENTRY DATE: FEB 18, 2025@10:59:37 AUTHOR: USMAN MORALES COSIGNER: URGENCY: STATUS: COMPLETED Consult received, chart reviewed. This is an e-consult only. Indication for consult as follows: Patient underwent screening colonoscopy on 06/26/2015, 4 polyps pathology revealed hyperplastic polyps (benign). There is no family history of CRC. Thus patient at average risk - recommend annual FIT. Colon cancer screening is recommended for veterans between ages 45-75. For average risk individuals, the preferred strategy at our facility is FIT, as it is readily available, non invasive and has evidence from RCTs supporting reduction in colon cancer incidence and mortality. Evidence also shows higher compliance with FIT compared to colonoscopy. Recommend ordering FIT. Further information can be found here, for future reference: http://[email or web address].[email or web address] ov/CPS/Colorectal_Cancer_Scr eening.asp Please reconsult if there is a specific indication for colonoscopy (relevant personal or family history, concerning symptoms). Please contact Dr. Parker Pérez, Chief of Gastroenterology, with additional questions or concerns. Thank you. Colonoscopy GAP Reminder: Recommendations are needed in the clinical reminder system following the patient's most recent colorectal cancer screening/surveillance test (Colonoscopy, Sigmoidoscopy or CT Colonography) Average risk screening reminder set to be due now. /petros/ TONY ZIEGLER PHYSICIAN PHYSICIST ASTROPHYSICS Signed: 02/18/2025 11:01 USMAN MORALES [facility]
--- OUTSIDE RECORDS SUMMARY | 2025-02-24 12:46 | XMS_ITS | Encounter Summary ---
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 Date/Time Encounter Type Encounter Description Reason Provider Source Feb 24, 2025 05:46 PM Outpatient Encounter TELEPHONE TRIAGE MARI ELLIOTT Encounter Template Text not used by [place] Plan of Treatment: Future Appointments (+ 6 [...] 20 appointments. The data comes from all [facility]. Appointment Date/Time Appointment Type Appointme nt Facility Name Mar 01, 2025 09:00 AM AMBULATORY - NONE RON HOANG [facility] Apr 10, 2025 09:00 [facility] Apr 15, 2025 10:00 AM AMBULATORY - MEDICINE GIOVANNY REBOLLEDO [facility] Jul 02, 2025 09:30 AM AMBULATORY - SURGERY SIDDHARTHA EM [facility] Active, Pending, and Scheduled Orders This section includes a listing of several types of active, pending, and scheduled orders, including clinic medications orders, diagnostic test orders, procedure orders and consult orders; where the start date of the order is 45 days before the date of the Encounter or 45 days after the date of theEncounter. The data comes from all [facility]. Test Date/Time Test Type Test Details Facility Name Feb 17, 2025 11:20 AM Consult Order CARDIAC EC HO OUTPT-ALL SITES [facility] Mar 01, 2025 09:00 AM Imaging - CT Scan Order LDCT INCIDENTAL PULMONARY NODULE [facility] Lab Results: +/- 30 days of the encounter This section includes the Chemistry and Hematology Lab Results on record with [place] for the patient. Radiology Reports and Pathology [...] January 20, 2024 12:23 PM Reporting Lab: [facility] [id number] Performing Lab: [facility] [id number] HEMOGLOBIN A1C 6.2 H 4.0-6.0 Feb 15, 2025 07:39 AM [facility] LIPID PANEL,NON-FASTING PLASMA Spec imen Type: PLASMA No comment entered. Ordering Provider: ROSA MARIA BAPTISTE Report Released Date/Time: January 20, 2024 12:23 PM Reporting Lab: [facility] [id number] Performing Lab: [facility] [id number] CHOLESTEROL 194 mg/dL <199 .HDL 50 mg/dL >40 LDL CALCULATION 106 mg/dL H <99 VLDL CALCULATION 38 mg/dL H <29 NON HDL CHOLESTEROL 144 mg/dL H <129 TRIG(NON FASTING) 188 mg/dL H <149 Feb 15, 2025 07:39 AM [facility] CBC BLOOD Specimen Type: BLOOD No comment entered. Ordering Provider: ROSA MARIA BAPTISTE Report Released Date/Time: January 20, 2024 12:23 PM Reporting Lab: [facility] [id number] Performing Lab: [facility] [id number] WBC 4.8 4.0-11.0 RBC 4.92 4.60-6.20 HGB [...] January 20, 2024 12:23 PM Reporting Lab: [facility] [id number] Performing Lab: [facility] [id number] CREATININE 0.9 mg/dL 0.7-1.2 UREA NITROGEN 11 [...] and tobacco- related health factors from the [place] facility where the Encounter took place. Current Smoking Status This section includes the most current smoking, or tobacco-related health factor, from the [place] facility where the Encounter took place. Date/Time Current Smoking Status Comment Mervin solitario Feb 15, 2025 09:00 AM VA-TOBACCO NEVER USED OTHER TYPE [facility] Tobacco Use History This section includes a history of the smoking, or tobacco-related health factors, that were collected on or before the date of the Encounter. The data comes from the [place] facility where the Encounter took place. Date/Time [...] ALL of a patient's completed or amended [place] Advance and Rescinded Directives. The entries below indicate that a directive exists for the patient, but an actual copy is not included with this document. The data comes from all [facility]. Date Advance Directives Provider Source Jun 21, 2007 ADVANCE DIRECTIVE JOE QUINONES [facility] Encounter Notes: All associated encounter notes This section contains the clinical notes associated to the Encounter. Date/Time Encounter Note(s) Provider Source Feb 24, 2025 04:46 PM RN PROGRESS NOTE: [facility] TITLE: [facility]: CLINICAL TRIAGE STANDARD TITLE: RN PROGRESS NOTE DATE OF NOTE: FEB 24, 2025@16:46:53 ENTRY DATE: FEB 24, 2025@16:46:53 AUTHOR: MARI ELLIOTT COSIGNER: URGENCY: STATUS: COMPLETED Caller Verification Call Back Number: [phone] Caller/Recipient Relation to Patient: Self Caller Name: TOMMY ESCALANTE Emergency Contact: ELOISE ESCALANTE Triage Summary Conducted triage/discussed symptoms Pain Score: 6 (Moderate to Severe Pain) Utilized the Triage Tool: Yes Chief Complaint: Diarrhea/vomiting Nurse's Recommendation / WHEN: Now Nurse's Recommendation / WHERE: ED Other WHEN/WHERE modifier reason: Distance from Hospital Test to Treat Summary of Actions Verbal Education Patient Disposition Patient/Caregiver agrees to plan of care: Yes Patient WHERE: ED Other Patient WHEN: Now Patient is Urgent or Emergent Nursing Plan and Disposition Referred patient to higher level of care Instructed to go to Emergency Room (ER) Advised of Financial Disclaimer: Patient advised that recommendation for care provided during the call does not constitute an approval or authorization for payment by the [place] or its staff. Patient advised to report a community ED visit to the [facility] at within 72 hours. Other course(s) of action Generated msg to PACT/Provider Provided guidance for worsening symptoms: *Caller/Patient* advised to call facilities [place] Clinical Contact Center or seek immediate medical attention for new or worsening symptoms Nurse Summary Nurse Summary: called reporting diarrhea since 199 and having episodes once every hour since then. He also reports 1 episode of emesis ~ 15 mins. ago. He denies abdominal pain, but reports abdominal soreness 02/19. He reports drinking water and Gatorade w/o issue. He reports diarrhea is color of Gatorade now. Current BP 126/80 and HR 107. triaged and was advised to be seen NOW at local ED d/t distance to [place] ED. Advised [place] to get a ride for safety. Financial disclaimer given and advised [place] to call Community Care at within 72 hours of ER visit. agreed with plan and verbalized understanding. He reports he will have his drive him to ED now. Thank you. Clinical Contact Center Codes Clinic/Location: [facility] PHONE [facility] RN Decision Support System Output: Triage Complete Triage Date: 02/24/2025, 05:35 PM Triage Note: Decision Support Tool Used: ClearTriage Protocol Used: Diarrhea Protocol-Based Disposition: Go to ED or Consult Tele-EC Now Positive Triage Question: * [1] Drinking very little AND [2] dehydration suspected (e.g., no urine > 12 hours, very dry mouth, very lightheaded) Care Advice Discussed: * Another Adult Should Drive Negative Triage Questions: * Shock suspected (e.g., cold/pale/clammy skin, too weak to stand, low BP, rapid pulse) * Difficult to awaken or acting confused (e.g., disoriented, slurred speech) * Sounds like a life-threatening emergency to the triager * [1] SEVERE abdominal pain (e.g., excruciating) AND [2] present > 1 hour * [1] SEVERE abdominal pain AND [2] age > 60 years * [1] Blood in the stool AND [2] moderate or large amount of blood * Black or tarry bowel movements (Exception: Chronic-unchanged black-ramirez BMs AND is taking iron pills or Pepto-Bismol.) IMPORTANT: This note was created by [facility] Clinical Contact Center staff. Please do not alert the staff member by adding them as a signer for future communications. Alerts are not monitored by this user. /petros/ Mari Elliott BA, BSN, auto body technician Nurse Signed: 02/24/2025 16:46 Receipt Acknowledged By: * AWAITING SIGNATURE * HERBERT TEJEDA * AWAITING SIGNATURE * ROSA MARIA BAPTISTE ALAINA M [facility]
--- OUTSIDE RECORDS SUMMARY | 2025-02-24 17:08 | XMS_ITS | Continuity of Care Document ---
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 [place] [facility] COMPREHE NSIVE METABOLI C PANEL+MG CARBON DIOXIDE, TOTAL [MOLES/VOL UME] IN SERUM OR PLASMA 26 mmol/L 22 - 29 02/15 Specimen Type: PLASMA No comment entered. Ordering Provider: QUINTEN BAPTISTE Report Released Date/Time: January 20, 2024 12:23 PM Reporting Lab: [facility] [address] Performing Lab: [facility] [address] [place] [facility] COMPREHE NSIVE METABOLI C PANEL+MG CALCIUM [MASS/VOLU ME] IN SERUM OR PLASMA 9.4 mg/dL 8.4 - 10.2 02/15 Specimen Type: PLASMA No comment entered. Ordering Provider: QUINTEN BAPTISTE Report Released Date/Time: January 20, 2024 12:23 PM Reporting Lab: [facility] [address] Performing Lab: [facility] [address] [place] [facility] COMPREHE NSIVE METABOLI C PANEL+MG PROTEIN [MASS/VOLU ME] IN SERUM OR PLASMA 7.7 g/dL 6.4 - 8.3 02/15 Specimen Type: PLASMA No comment entered. Ordering Provider: QUINTEN BAPTISTE Report Released Date/Time: January 20, 2024 12:23 PM Reporting Lab: [facility] [address] Performing Lab: [facility] [address] [place] [facility] COMPREHE NSIVE METABOLI C PANEL+MG ALBUMIN [MASS/VOLU ME] IN SERUM OR PLASMA 4.8 g/dL 3.5 - 5.0 02/15 Specimen Type: PLASMA No comment entered. Ordering Provider: QUINTEN BAPTISTE Report Released Date/Time: January 20, 2024 12:23 PM Reporting Lab: [facility] [address] Performing Lab: [facility] [address] [place] [facility] COMPREHE NSIVE METABOLI C PANEL+MG BILIRUBIN. TOTAL [MASS/VOLU ME] IN SERUM OR PLASMA 0.7 mg/dL 0.2 - 1.2 02/15 Specimen Type: PLASMA No comment entered. Ordering Provider: QUINTEN BAPTISTE Report Released Date/Time: January 20, 2024 12:23 PM Reporting Lab: [facility] [address] Performing Lab: [facility] [address] [facility] COMPREHE NSIVE METABOLI C PANEL+MG MAGNESIUM [MASS/VOLU ME] IN SERUM OR PLASMA 2.2 mg/dL 1.6 - 2.6 02/15 Specimen Type: PLASMA No comment entered. Ordering Provider: QUINTEN BAPTISTE Report Released Date/Time: January 20, 2024 12:23 PM Reporting Lab: [facility] [address] Performing Lab: [facility] [address] [facility] IS [facility] COMPREHE NSIVE METABOLI C PANEL+MG ANION GAP IN SERUM OR PLASMA 10 mmol/L 5 - 15 02/15 Specimen Type: PLASMA No comment entered. Ordering Provider: QUINTEN BAPTISTE Report Released Date/Time: January 20, 2024 12:23 PM Reporting Lab: [facility] [address] Performing Lab: [facility] [address] [place] [facility] [employer] [facility] COMPREHE NSIVE METABOLI C PANEL+MG ALKALINE PHOSPHATAS E [ENZYMATIC ACTIVITY/V OLUME] IN SERUM OR PLASMA 88 U/L 40 - 150 02/15 Specimen Type: PLASMA No comment entered. Ordering Provider: QUINTEN BAPTISTE Report Released Date/Time: January 20, 2024 12:23 PM Reporting Lab: [facility] [address] Performing Lab: [facility] [address] [place] [facility] COMPREHE NSIVE METABOLI C PANEL+MG ALANINE AMINOTRANS FERASE [ENZYMATIC ACTIVITY/V OLUME] IN SERUM OR PLASMA 73 U/L <44 - 44 02/15 H Specimen Type: PLASMA No comment entered. Ordering Provider: QUINTEN BAPTISTE Report Released Date/Time: January 20, 2024 12:23 PM Reporting Lab: [facility] [address] Performing Lab: [facility] [address] [facility] COMPREHE NSIVE METABOLI C PANEL+MG ASPARTATE AMINOTRANS FERASE [ENZYMATIC ACTIVITY/V OLUME] IN SERUM OR PLASMA 56 U/L 11 - 34 02/15 H Specimen Type: PLASMA No comment entered. Ordering Provider: QUINTEN BAPTISTE Report Released Date/Time: January 20, 2024 12:23 PM Reporting Lab: [facility] [address] Performing Lab: [facility] [address] [facility] COMPREHE NSIVE METABOLI C PANEL+MG GLOMERULAR FILTRATION RATE/1.73 SQ M.PREDICTE D [VOLUME RATE/AREA] IN SERUM, PLASMA OR BLOOD BY CREATININE -BASED FORMULA (CKD-EPI 2020) >90 60 02/15 Specimen Type: PLASMA No comment entered. Ordering Provider: QUINTEN BAPTISTE Report Released Date/Time: January 20, 2024 12:23 PM Reporting Lab: [facility] [address] Performing Lab: [facility] [address] [facility] HEMOGLOB IN A1C HEMOGLOBIN A1C/HEMOGL OBIN.TOTAL IN BLOOD 6.2 4.0 - 6.0 02/15 H Specimen Type: BLOOD Comment: Values obtained from A1C measurement s can vary. For typical A1C assays, a reported value of 7.0 could actually be between 6.7 and 7.3 if measured by a reference method. A reported value of 9.0 could actually be between 8.7 and 9.3. Ref: http://www. ngsp.org/[place] Pdata.asp Ordering Provider: QUINTEN BAPTISTE Report Released Date/Time: January 20, 2024 12:23 PM Reporting Lab: [facility] [address] Performing Lab: [facility] [address] [place] [facility] LIPID PANEL,NO N-FASTIN G CHOLESTERO L [MASS/VOLU ME] IN SERUM OR PLASMA 194 mg/dL <199 - 199 02/15 Specimen Type: PLASMA No comment entered. Ordering Provider: QUINTEN BAPTISTE Report Released Date/Time: January 20, 2024 12:23 PM Reporting Lab: [facility] [address] Performing Lab: [facility] [address] [place] [facility] LIPID PANEL,NO N-FASTIN G CHOLESTERO L IN HDL [MASS/VOLU ME] IN SERUM OR PLASMA 50 mg/dL 40 02/15 Specimen Type: PLASMA No comment entered. Ordering Provider: QUINTEN BAPTISTE Report Released Date/Time: January 20, 2024 12:23 PM Reporting Lab: [facility] [address] Performing Lab: [facility] [address] [place] [facility] LIPID PANEL,NO N-FASTIN G CHOLESTERO L IN LDL [MASS/VOLU ME] IN SERUM OR PLASMA BY CALCULATIO N 106 mg/dL <99 - 99 02/15 H Specimen Type: PLASMA No comment entered. Ordering Provider: QUINTEN BAPTISTE Report Released Date/Time: January 20, 2024 12:23 PM Reporting Lab: [facility] [address] Performing Lab: [facility] [address] [place] [facility] LIPID PANEL,NO N-FASTIN G CHOLESTERO L IN VLDL [MASS/VOLU ME] IN SERUM OR PLASMA BY CALCULATIO N 38 mg/dL <29 - 29 02/15 H Specimen Type: PLASMA No comment entered. Ordering Provider: QUINTEN BAPTISTE Report Released Date/Time: January 20, 2024 12:23 PM Reporting Lab: [facility] [address] Performing Lab: [facility] [address] [place] [facility] LIPID PANEL,NO N-FASTIN G CHOLESTERO L NON HDL [MASS/VOLU ME] IN SERUM OR PLASMA 144 mg/dL <129 - 129 02/15 H Specimen Type: PLASMA No comment entered. Ordering Provider: QUINTEN BAPTISTE Report Released Date/Time: January 20, 2024 12:23 PM Reporting Lab: [facility] [address] Performing Lab: [facility] [address] [place] [facility] LIPID PANEL,NO N-FASTIN G TRIGLYCERI DE [MASS/VOLU ME] IN SERUM OR PLASMA 188 mg/dL <149 - 149 02/15 H Specimen Type: PLASMA No comment entered. Ordering Provider: QUINTEN BAPTISTE Report Released Date/Time: January 20, 2024 12:23 PM Reporting Lab: [facility] [address] Performing Lab: [facility] [address] [place] [facility] COVID-19 DIAGNOST IC PANEL (BIOFIRE ) CHLAMYDOPH GATO PNEUMONIAE DNA [PRESENCE] IN NASOPHARYN X BY LALITO WITH NON-PROBE DETECTION NOT DETECTED 07/15 Specimen Type: NASOPHARYNG EAL Comment: Chacorta Whitaker ([phone]) Ordering Provider: MICHELLE MORGAN MA Report Released Date/Time: Jul 15, 2024 10:01 AM Reporting Lab: [facility] [address] Performing Lab: [facility] [address] [place] [facility] COVID-19 DIAGNOST IC PANEL (BIOFIRE ) MYCOPLASMA PNEUMONIAE [PRESENCE] IN SPECIMEN BY ORGANISM SPECIFIC CULTURE NOT DETECTED 07/15 Specimen Type: NASOPHARYNG EAL Comment: Chacorta Whitaker ([phone]) Ordering Provider: MICHELLE MORGAN MA Report Released Date/Time: Jul 15, 2024 10:01 AM Reporting Lab: [facility] [address] Performing Lab: [facility] [address] [place] [facility] COVID-19 DIAGNOST IC PANEL (BIOFIRE ) ADENOVIRUS DNA [PRESENCE] IN NASOPHARYN X BY LALITO WITH NON-PROBE DETECTION NOT DETECTED 07/15 Specimen Type: NASOPHARYNG EAL Comment: Chacorta Whitaker ([phone]) Ordering Provider: MICHELLE MORGAN MA Report Released Date/Time: Jul 15, 2024 10:01 AM Reporting Lab: [facility] [address] Performing Lab: [facility] [address] [place] [facility] COVID-19 DIAGNOST IC PANEL (BIOFIRE ) HUMAN METAPNEUMO VIRUS RNA [PRESENCE] IN NASOPHARYN X BY LALITO WITH NON-PROBE DETECTION NOT DETECTED 07/15 Specimen Type: NASOPHARYNG EAL Comment: Chacorta Whitaker ([phone]) Ordering Provider: MICHELLE MORGAN MA Report Released Date/Time: Jul 15, 2024 10:01 AM Reporting Lab: [facility] [address] Performing Lab: [facility] [address] [place] [facility] COVID-19 DIAGNOST IC PANEL (BIOFIRE ) RHINOVIRUS +ENTEROVIR US RNA [PRESENCE] IN NASOPHARYN X BY LALITO WITH NON-PROBE DETECTION NOT DETECTED 07/15 Specimen Type: NASOPHARYNG EAL Comment: Chacorta Whitaker ([phone]) Ordering Provider: MICHELLE MORGAN MA Report Released Date/Time: Jul 15, 2024 10:01 AM Reporting Lab: [facility] [address] Performing Lab: [facility] [address] [place] [facility] COVID-19 DIAGNOST IC PANEL (BIOFIRE ) INFLUENZA VIRUS A RNA [PRESENCE] IN NASOPHARYN X BY LALITO WITH NON-PROBE DETECTION NOT DETECTED 07/15 Specimen Type: NASOPHARYNG EAL Comment: Chacorta Whitaker ([phone]) Ordering Provider: MICHELLE MORGAN MA Report Released Date/Time: Jul 15, 2024 10:01 AM Reporting Lab: [facility] [address] Performing Lab: [facility] [address] [place] [facility] COVID-19 DIAGNOST IC PANEL (BIOFIRE ) INFLUENZA VIRUS B RNA [PRESENCE] IN NASOPHARYN X BY LALITO WITH NON-PROBE DETECTION NOT DETECTED 07/15 Specimen Type: NASOPHARYNG EAL Comment: Chacorta Whitaker ([phone]) Ordering Provider: MICHELLE MORGAN MA Report Released Date/Time: Jul 15, 2024 10:01 AM Reporting Lab: [facility] [address] Performing Lab: [facility] [address] [place] [facility] COVID-19 DIAGNOST IC PANEL (BIOFIRE ) RESPIRATOR Y SYNCYTIAL VIRUS RNA [PRESENCE] IN NASOPHARYN X BY LALITO WITH NON-PROBE DETECTION NOT DETECTED 07/15 Specimen Type: NASOPHARYNG EAL Comment: Chacorta Whitaker ([phone]) Ordering Provider: MICHELLE MORGAN MA Report Released Date/Time: Jul 15, 2024 10:01 AM Reporting Lab: [facility] [address] Performing Lab: [facility] [address] [place] [facility] COVID-19 DIAGNOST IC PANEL (BIOFIRE ) HUMAN CORONAVIRU S 229E RNA [PRESENCE] IN NASOPHARYN X BY LALITO WITH NON-PROBE DETECTION NOT DETECTED 07/15 Specimen Type: NASOPHARYNG EAL Comment: Chacorta Whitaker ([phone]) Ordering Provider: MICHELLE MORGAN MA Report Released Date/Time: Jul 15, 2024 10:01 AM Reporting Lab: [facility] [address] Performing Lab: [facility] [address] [place] [facility] COVID-19 DIAGNOST IC PANEL (BIOFIRE ) HUMAN CORONAVIRU S HKU1 RNA [PRESENCE] IN NASOPHARYN X BY LALITO WITH NON-PROBE DETECTION NOT DETECTED 07/15 Specimen Type: NASOPHARYNG EAL Comment: Chacorta Whitaker ([phone]) Ordering Provider: MICHELLE MORGAN MA Report Released Date/Time: Jul 15, 2024 10:01 AM Reporting Lab: [facility] [address] Performing Lab: [facility] [address] [place] [facility] COVID-19 DIAGNOST IC PANEL (BIOFIRE ) HUMAN CORONAVIRU S NL63 RNA [PRESENCE] IN NASOPHARYN X BY LAILTO WITH NON-PROBE DETECTION NOT DETECTED 07/15 Specimen Type: NASOPHARYNG EAL Comment: Chacorta Whitaker ([phone]) Ordering Provider: MICHELLE MORGAN MA Report Released Date/Time: Jul 15, 2024 10:01 AM Reporting Lab: [facility] [address] Performing Lab: [facility] [address] [place] [facility] COVID-19 DIAGNOST IC PANEL (BIOFIRE ) HUMAN CORONAVIRU S OC43 RNA [PRESENCE] IN NASOPHARYN X BY LALITO WITH NON-PROBE DETECTION NOT DETECTED 07/15 Specimen Type: NASOPHARYNG EAL Comment: Chacorta Whitaker ([phone]) Ordering Provider: MICHELLE MORGAN MA Report Released Date/Time: Jul 15, 2024 10:01 AM Reporting Lab: [facility] [address] Performing Lab: [facility] [address] [place] [facility] COVID-19 DIAGNOST IC PANEL (BIOFIRE ) PAR[place]FLUE NZA VIRUS 1 RNA [PRESENCE] IN NASOPHARYN X BY LALITO WITH NON-PROBE DETECTION NOT DETECTED 07/15 Specimen Type: NASOPHARYNG EAL Comment: Chacorta Whitaker (218) Ordering Provider: MICHELLE MORGAN MA Report Released Date/Time: Jul 15, 2024 10:01 AM Reporting Lab: [facility] [address] Performing Lab: [facility] [address] [place] [facility] COVID-19 DIAGNOST IC PANEL (BIOFIRE ) [place] NZA VIRUS 2 RNA [PRESENCE] IN NASOPHARYN X BY LALITO WITH NON-PROBE DETECTION NOT DETECTED 07/15 Specimen Type: NASOPHARYNG EAL Comment: Chacorta Whitaker ([phone]) Ordering Provider: MICHELLE MORGAN MA Report Released Date/Time: Jul 15, 2024 10:01 AM Reporting Lab: [facility] [address] Performing Lab: [facility] [address] [place] [facility] COVID-19 DIAGNOST IC PANEL (BIOFIRE ) [place] NZA VIRUS 3 RNA [PRESENCE] IN NASOPHARYN X BY LALITO WITH NON-PROBE DETECTION NOT DETECTED 07/15 Specimen Type: NASOPHARYNG EAL Comment: Chacorta Whitaker ([phone]) Ordering Provider: MICHELLE MORGAN MA Report Released Date/Time: Jul 15, 2024 10:01 AM Reporting Lab: [facility] [address] Performing Lab: [facility] [address] [place] [facility] COVID-19 DIAGNOST IC PANEL (BIOFIRE ) [place] NZA VIRUS 4 RNA [PRESENCE] IN NASOPHARYN X BY LALITO WITH NON-PROBE DETECTION NOT DETECTED 07/15 Specimen Type: NASOPHARYNG EAL Comment: Chacorta Whitaker ([phone]) Ordering Provider: MICHELLE MORGAN MA Report Released Date/Time: Jul 15, 2024 10:01 AM Reporting Lab: [facility] [address] Performing Lab: [facility] [address] [place] [facility] COVID-19 DIAGNOST IC PANEL (BIOFIRE ) TIME TO END-SYSTOL E LEFT VENTRICLE SPECT NOT DETECTED 07/15 Specimen Type: NASOPHARYNG EAL Comment: Chacorta Whitaker ([phone]) Ordering Provider: MICHELLE MORGAN MA Report Released Date/Time: Jul 15, 2024 10:01 AM Reporting Lab: [facility] [address] Performing Lab: [facility] [address] [place] [facility] COVID-19 DIAGNOST IC PANEL (BIOFIRE ) BORDETELLA PERTUSSIS. PERTUSSIS TOXIN PROMOTER REGION [PRESENCE] IN NASOPHARYN X BY LALITO WITH NON-PROBE DETECTION NOT DETECTED 07/15 Specimen Type: NASOPHARYNG EAL Comment: Chacorta Whitaker ([phone]) Ordering Provider: MICHELLE MORGAN MA Report Released Date/Time: Jul 15, 2024 10:01 AM Reporting Lab: [facility] [address] Performing Lab: [facility] [address] [place] [facility] COVID-19 DIAGNOST IC PANEL (BIOFIRTVSmiles ) IMMUNOFIXA TION FOR BODY FLUID No pathogen s detected 07/15 Specimen Type: NASOPHARYNG EAL Comment: Chacorta Whitaker ([phone]) Ordering Provider: MICHELLE MORGAN MA Report Released Date/Time: Jul 15, 2024 10:01 AM Reporting Lab: [facility] [address] Performing Lab: [facility] [address] [place] [facility] COVID-19 DIAGNOST IC PANEL (Grid [employer] ) SARS-COV-2 (COVID-19) RNA [PRESENCE] IN NASOPHARYN X BY LALITO WITH NON-PROBE DETECTION NOT DETECTED 07/15 Specimen Type: NASOPHARYNG EAL Comment: Chacorta Whitaker ([phone]) Ordering Provider: MICHELLE MORGAN MA Report Released Date/Time: Jul 15, 2024 10:01 AM Reporting Lab: [facility] [address] Performing Lab: [facility] [address] [place] [facility] B 12 COBALAMIN (VITAMIN B12) [MASS/VOLU ME] IN SERUM OR PLASMA 378 pg/mL 213 - 816 01/20 Specimen Type: SERUM Comment: collected 01/19 Ordering Provider: QUINTEN BAPTISTE Report Released Date/Time: January 21, 2024 04:10 PM Reporting Lab: [facility] [address] Performing Lab: [facility] [address] [facility] PSA PROSTATE SPECIFIC AG [MASS/VOLU ME] IN SERUM OR PLASMA 0.95 ng/mL <4.00 - 4.00 01/19 Specimen Type: SERUM No comment entered. Ordering Provider: QUINTEN BAPTISTE Report Released Date/Time: January 20, 2024 12:23 PM Reporting Lab: [facility] [address] Performing Lab: [facility] [address] [facility] CBC LEUKOCYTES [#/VOLUME] IN BLOOD BY AUTOMATED COUNT 4.73 10*3/uL 4.0 - 11.0 01/19 Specimen Type: BLOOD No comment entered. Ordering Provider: QUINTEN BAPTISTE Report Released Date/Time: January 13, 2023 03:44 PM Reporting Lab: [facility] [address] Performing Lab: [place] [address] [place] [facility] CBC ERYTHROCYT ES [#/VOLUME] IN BLOOD BY AUTOMATED COUNT 4.50 10*6/uL 4.6 - 6.2 01/19 L Specimen Type: BLOOD No comment entered. Ordering Provider: QUINTEN BAPTISTE Report Released Date/Time: January 13, 2023 03:44 PM Reporting Lab: [facility] [address] Performing Lab: [facility] [address] [place] [facility] CBC HEMOGLOBIN [MASS/VOLU ME] IN BLOOD 14.0 g/dL 13.5 - 17.9 01/19 Specimen Type: BLOOD No comment entered. Ordering Provider: QUINTEN BAPTISTE Report Released Date/Time: January 13, 2023 03:44 PM Reporting Lab: [facility] [address] Performing Lab: [facility] [address] [place] [facility] CBC HEMATOCRIT [VOLUME FRACTION] OF BLOOD BY AUTOMATED COUNT 39.8 41 - 54 01/19 L Specimen Type: BLOOD No comment entered. Ordering Provider: QUINTEN BAPTISTE Report Released Date/Time: January 13, 2023 03:44 PM Reporting Lab: [facility] [address] Performing Lab: [facility] [address] [place] [facility] CBC MCV [ENTITIC VOLUME] BY AUTOMATED COUNT 88.4 fL 80 - 100 01/19 Specimen Type: BLOOD No comment entered. Ordering Provider: QUINTEN BAPTISTE Report Released Date/Time: January 13, 2023 03:44 PM Reporting Lab: [facility] [address] Performing Lab: [facility] [address] [place] [facility] CBC MCH [ENTITIC MASS] BY AUTOMATED COUNT 31.1 pg 27 - 33 01/19 Specimen Type: BLOOD No comment entered. Ordering Provider: QUINTEN BAPTISTE Report Released Date/Time: January 13, 2023 03:44 PM Reporting Lab: [facility] [address] Performing Lab: [facility] [address] [place] [facility] CBC MCHC [MASS/VOLU ME] BY AUTOMATED COUNT 35.2 g/dL 32.0 - 37.5 01/19 Specimen Type: BLOOD No comment entered. Ordering Provider: QUINTEN BAPTISTE Report Released Date/Time: January 13, 2023 03:44 PM Reporting Lab: [facility] [address] Performing Lab: [facility] [address] [facility] CBC PLATELETS [#/VOLUME] IN BLOOD BY AUTOMATED COUNT 185 10*3/uL 150 - 400 01/19 Specimen Type: BLOOD No comment entered. Ordering Provider: QUINTEN BAPTISTE Report Released Date/Time: January 13, 2023 03:44 PM Reporting Lab: [facility] [address] Performing Lab: [facility] [address] [place] [facility] CBC PLATELET MEAN VOLUME [ENTITIC VOLUME] IN BLOOD BY AUTOMATED COUNT 8.8 fL 7.4 - 10.4 01/19 Specimen Type: BLOOD No comment entered. Ordering Provider: QUINTEN BAPTISTE Report Released Date/Time: January 13, 2023 03:44 PM Reporting Lab: [facility] [id number] Performing Lab: [facility] [address] [place] [facility] CBC ERYTHROCYT E DISTRIBUTI ON WIDTH [RATIO] BY AUTOMATED COUNT 12.1 11.5 - 14.5 01/19 Specimen Type: BLOOD No comment entered. Ordering Provider: QUINTEN BAPTISTE Report Released Date/Time: January 13, 2023 03:44 PM Reporting Lab: [facility] [address] Performing Lab: [facility] [address] [place] [facility] HEMOGLOB IN A1C HEMOGLOBIN A1C/HEMOGL OBIN.TOTAL IN BLOOD 5.8 4.0 - 6.0 01/19 Specimen Type: BLOOD Comment: Values obtained from A1C measurement s can vary. For typical A1C assays, a reported value of 7.0 could actually be between 6.7 and 7.3 if measured by a reference method. A reported value of 9.0 could actually be between 8.7 and 9.3. Ref: [email or web address]/[place] [email or web address] Ordering Provider: QUINTEN BAPTISTE Report Released Date/Time: January 13, 2023 03:44 PM Reporting Lab: [facility] [address] Performing Lab: [facility] [address] [place] [facility] LIPID PANEL,NO N-FASTIN G CHOLESTERO L [MASS/VOLU ME] IN SERUM OR PLASMA 200 mg/dL <199 - 199 01/19 H Specimen Type: PLASMA No comment entered. Ordering Provider: QUINTEN BAPTISTE Report Released Date/Time: January 13, 2023 03:44 PM Reporting Lab: [facility] [phone] Performing Lab: [facility] [address] [place] [facility] LIPID PANEL,NO N-FASTIN G CHOLESTERO L IN HDL [MASS/VOLU ME] IN SERUM OR PLASMA 56 mg/dL 40 01/19 Specimen Type: PLASMA No comment entered. Ordering Provider: QUINTEN BAPTISTE Report Released Date/Time: January 13, 2023 03:44 PM Reporting Lab: [facility] [address] Performing Lab: [facility] [address] [place] [facility] LIPID PANEL,NO N-FASTIN G CHOLESTERO L IN LDL [MASS/VOLU ME] IN SERUM OR PLASMA BY CALCULATIO N 110 mg/dL <99 - 99 01/19 H Specimen Type: PLASMA No comment entered. Ordering Provider: QUINTEN BAPTISTE Report Released Date/Time: January 13, 2023 03:44 PM Reporting Lab: [facility] [id number] Performing Lab: [facility] [address] [place] [facility] LIPID PANEL,NO N-FASTIN G CHOLESTERO L IN VLDL [MASS/VOLU ME] IN SERUM OR PLASMA BY CALCULATIO N 34 mg/dL <29 - 29 01/19 H Specimen Type: PLASMA No comment entered. Ordering Provider: QUINTEN BAPTISTE Report Released Date/Time: January 13, 2023 03:44 PM Reporting Lab: [facility] [address] Performing Lab: [facility] [address] [facility] LIPID PANEL,NO N-FASTIN G CHOLESTERO L NON HDL [MASS/VOLU ME] IN SERUM OR PLASMA 144 mg/dL <129 - 129 01/19 H Specimen Type: PLASMA No comment entered. Ordering Provider: QUINTEN BAPTISTE Report Released Date/Time: January 13, 2023 03:44 PM Reporting Lab: [facility] [address] Performing Lab: [facility] [address] [facility] LIPID PANEL,NO N-FASTIN G TRIGLYCERI DE [MASS/VOLU ME] IN SERUM OR PLASMA 172 mg/dL <149 - 149 01/19 H Specimen Type: PLASMA No comment entered. Ordering Provider: QUINTEN BAPTISTE Report Released Date/Time: January 13, 2023 03:44 PM Reporting Lab: [facility] [address] Performing Lab: [facility] [address] [facility] Vital Signs Combined list of inpatient and outpatient Vital Signs from Department of Defense and Veterans Affairs, ranging from 12 months to all on record, depending upon the facility. Vital Sign Value Date Comments Source SYSTOLIC BLOOD PRESSURE 144 02/15/2025 09:02:02 [facility] DIASTOLIC BLOOD PRESSURE 72 02/15/2025 09:02:02 [facility] PULSE OXIMETRY 96 02/15/2025 09:02:02 [facility] WEIGHT 200 02/15/2025 09:02:02 [facility] BMI 32 kg/m2 02/15/2025 09:02:02 [facility] PAIN 0 02/15/2025 09:02:02 [facility] HEIGHT 66 02/15/2025 09:02:02 [facility] TEMPERATURE 97.1 02/15/2025 09:02:02 [facility] PULSE 70 02/15/2025 09:02:02 [facility] RESPIRATION 16 02/15/2025 09:02:02 [facility] SYSTOLIC BLOOD PRESSURE 153 07/15/2024 09:58:00 [facility] DIASTOLIC BLOOD PRESSURE 86 07/15/2024 09:58:00 [facility] PULSE OXIMETRY 94 07/15/2024 09:58:00 [facility] PAIN 0 07/15/2024 09:58:00 [facility] TEMPERATURE 98.8 07/15/2024 09:58:00 [facility] PULSE 71 07/15/2024 09:58:00 [facility] RESPIRATION 16 07/15/2024 09:58:00 [facility] SYSTOLIC BLOOD PRESSURE 163 06/14/2024 10:35:00 [facility] DIASTOLIC BLOOD PRESSURE 78 06/14/2024 10:35:00 [facility] PULSE OXIMETRY 94 06/14/2024 10:35:00 [facility] PAIN 0 06/14/2024 10:35:00 [facility] TEMPERATURE 98.1 06/14/2024 10:35:00 [facility] PULSE 63 06/14/2024 10:35:00 [facility] RESPIRATION 16 06/14/2024 10:35:00 [facility] SYSTOLIC BLOOD PRESSURE 164 04/16/2024 10:04:51 [facility] DIASTOLIC BLOOD PRESSURE 85 04/16/2024 10:04:51 [facility] PULSE OXIMETRY 94 04/16/2024 10:04:51 [facility] WEIGHT 197.2 04/16/2024 10:04:51 [facility] BMI 32 kg/m2 04/16/2024 10:04:51 [facility] PAIN 0 04/16/2024 10:04:51 [facility] TEMPERATURE 97.8 04/16[facility] 04/16/2024 10:04:51 [facility] RESPIRATION 16 04/16/2024 10:04:51 [facility] Encounters Combined list of: 1) Encounters from Department of Veterans Affairs facilities going backup to the last 18 months, not all VA inpatient encounters are included; 2) Encounters from the Department of Defense facilities going backup to 280 months. Location Location Details Encounter Type Encounter Number Reason For Visit Attending Provider ADM Date DC Date Status Disposition Source [facility] Facility OUTPATIENT [id number] 12/18 Released w/o Limitations [facility] OUTPATIENT [id number] 12/23 Released w/o Limitations [facility] OUTPATIENT [id number] 12/31 Released w/o Limitations [facility] OUTPATIENT [id number] 03/27 Released w/o Limitations [facility] OUTPATIENT [id number] 07/19 Released w/o Limitations [facility] OUTPATIENT [id number] 07/29 Released w/o Limitations [facility] OUTPATIENT [id number] 09/23 Released w/o Limitations [facility] OUTPATIENT [id number] 07/02 Released w/o Limitations [facility] OUTPATIENT [id number] 08/23 Released w/o Limitations [facility] OUTPATIENT [id number] 08/23 Released w/o Limitations [facility] OUTPATIENT [id number] FERNANDO ARAUJO 10/20 [facility] Limitations [facility] Outpatient Encounter [id number] Diagnos is: ICD-10- CM 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 [place] [facility] Outpatient Encounter [id number] 10/[address] [place] [facility] [place] [facility] UNLISTED PULMONARY SVC/PX [id number] Diagnos is: ICD-10- CM G47.33 Obstruc tive sleep apnea (adult) ([facility]) SON CEBALLOS [facility] [place] [facility] Outpatient Encounter [id number] Diagnos is: ICD-10- CM G47.33 Obstruc tive sleep apnea (adult) ([facility]) DEBRA CARDENAS S 10/26 [facility] [place] [facility] MEASURE BLOOD OXYGEN LEVEL [id number] Diagnos is: ICD-10- CM G47.33 Obstruc tive sleep apnea (adult) ([facility]) Osman DOHERTY 10/26 [facility] [place] [facility] HC PRO PHONE CALL 11-20 MIN [id number] Diagnos is: ICD-10- CM G47.33 Obstruc tive sleep apnea (adult) ([facility]) DEBRA CARDENAS S 10/28 [facility] [place] [facility] Outpatient Encounter [id number] MARIO PONCE 01/03 [facility] [place] [facility] Outpatient Encounter [id number] 01/04 [facility] [place] [facility] Outpatient [facility]counter [id number] 01/19 [facility] [place] [facility] OFFICE O/P EST MOD 30 MIN [id number] Diagnos is: ICD-10- CM M54.50 Low back pain, unspeci fied HETAL BAPTISTE 01/19 [facility] [place] [facility] OFFICE O/P NEW LOW 30 MIN [id number] Diagnos is: ICD-10- CM J31.0 Chronic rhiniti s NATALYA CAMPOS 01/29 [place] [facility] [place] [facility] [place] [place] [id number] 02/07 [place] [facility] [place] [facility] [place] [facility] [id number] 02/15 [place] [facility] [place] [facility] [id number] 02/15 [place] [facility] [place] [facility] En[place] [id number] 02/16 [place] [facility] [place] [facility] [id number] 02/16 [place] [facility] [place] [facility] [place] [id number] 02/16 [place] [facility] [place] [facility] [place] [id number] 02/21 [place] [facility] [place] [facility] [place] En[place] [id number] 02/21 [place] [facility] [place] [facility] [place] En[place] [id number] MOUNIKA CORTES 02/22 [place] [facility] [place] [facility] [place] En[place] [id number] 03/02 [place] [facility] [place] [facility] [place] [facility] [id number] 03/09 [place] [facility] [place] [facility] [place] En[place] [id number] 03/14 [place] [facility] [place] [facility] [place] [facility] [id number] 03/14 [place] [facility] [place] [facility] [place] En[place] [id number] 03/16 [facility] [place] [facility] OFF[place] O/P EST LOW 20 MIN [id number] Diagnos is: ICD-10- CM J31.0 Chronic rhiniti s ANDRESNATALYA Tarsha Osman 03/19 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 [place] [facility] Outpatient [facility]counter [id number] 03/29 [facility] [place] [facility] Outpatient Encounter [id number] 03/30 [facility] [place] [facility] Outpatient Encounter [id number] 04/04 [facility] [place] [facility] Outpatient Encounter [id number] 04/11 [facility] [place] [facility] Outpatient Encounter [id number] 04/11 [facility] [place] [facility] OFF[place] O/P EST MOD 30 MIN [id number] Diagnos is: ICD-10- CM G47.33 Obstruc tive sleep apnea (adult) (pediat autumn) DARBY HEMPHILL 04/16 [facility] [place] [facility] Outpatient Encounter [id number] 04/18 [facility] [place] [facility] HC PRO PHONE CALL 21-30 MIN [id number] Diagnos is: ICD-10- CM R03.0 Elevate d blood-p ressure reading , w/o diagnos is of htn OLGA ZIMMERMAN 05/02 [facility] [place] [facility] Outpatient Encounter [id number] 05/02 [facility] [place] [facility] Outpatient Encounter [id number] 05/08 [place] [facility] [place] [facility] Outpatient Encounter [id number] 05/15 [place] [facility] [place] [facility] Outpatient Encounter [id number] 05/17 [place] [facility] [place] [facility] Outpatient Encounter [id number] 05/21 [place] [facility] [place] [facility] Outpatient Encounter [id number] 05/21 [place] [facility] [place] [facility] Outpatient Encounter [id number] 05/26 [facility] [place] [facility] Outpatient Encounter [id number] 06/12 [facility] [place] [facility] EMERGENCY DEPT VISIT LOW MDM [id number] Diagnos is: ICD-10- CM L03.039 Celluli tis of unspeci fied LEONELA Cerna 06/14 [facility] [place] [facility] Outpatient Encounter [id number] 07/02 [facility] [place] [facility] Outpatient Encounter [id number] 07/06 [facility] [place] [facility] EMERGENCY DEPT VISIT MOD MDM [id number] Diagnos is: ICD-10- CM J06.9 Acute upper respira tory infecti on, unspeci fied Lilly BENAVIDEZ 07/15 [facility] [place] [facility] Outpatient [facility]counter [id number] 07/15 [facility] [place] [facility] Outpatient [facility]counter [id number] 07/18 [facility] [place] [facility] Outpatient Encounter [id number] 08/01 [facility] Outpatient Encounter [id number] 08/15 [facility] [place] [facility] Outpatient Encounter [id number] 08/22 [facility] Outpatient Encounter [id number] 08/29 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 Outpatient Encounter [id number] 01/23 [facility] NQHP OL DIG ASSMT&MGMT 21+ [id number] Diagnos is: ICD-10- CM F10.90 Alcohol use, unspeci fied, uncompl icated MIGUEL, ALEX A 02/12 [facility] Outpatient Encounter [id number] 02/14 [facility] Outpatient Encounter [id number] 02/15 [facility] OFFICE O/P EST MOD 30 MIN [id number] Diagnos is: ICD-10- CM M54.50 Low back pain, unspeci fied VAN SANCHEZBE NJAMIN E 02/15 [facility] Outpatient Encounter [id number] 02/18 [facility] Outpatient Encounter [id number] Diagnos is: ICD-10- CM Z12.11 Encount er for screeni ng for maligna nt neoplas m of colon TONIE MORALES SHARIF [place] 02/18 [facility] [place] [facility] Outpatient Encounter [id number] GLORIA ELLIOTT 02/24 [facility] Procedures Combined list of: 1) Procedures from Department of Veterans Affairs facilities going back up to thelast 18 months, not all [place] non-surgical procedures are included; 2) All procedures from the Department of Defense facilities. Procedure Procedure Type Code Date Perfomer Comments [facility] e ENT Services ENT Services 67554 10/21/2009 BONNIE HERNANDES Special Services Analysis Of Computerized Data Special Services Analysis Of Computerized Data 62092 10/21/2009 BONNIE HERNANDES Audiometry Group Testing Audiometry Group Testing 44114 10/21/[address] Educational Services 10/21/2009 BONNIE HERNANDES oD Threshold Audiogram (Pure Tone) Threshold Audiogram (Pure Tone) 62994 10/21/2009 BONNIE HERNANDES PURE TONE AUDIOMETRY (THRESHOLD); AIR ONLY 10/20/2009 [facility] COLLECTION OF VENOUS BLOOD BY VENIPUNCTURE 10/16/2009 [facility] ANALYSIS OF CLINICAL DATA STORED IN COMPUTERS (EG, ECGS, BLOOD PRESSURES, HEMATOLOGIC DATA) 12/03/2008 [facility] ELECTROCARDIOGRAM, ROUTINE ECG WITH AT LEAST 12 LEADS; WITH INTERPRETATION AND REPORT 11/26/2008 [facility] TYPHOID VACCINE, CAPSULAR POLYSACCHARIDE (VICPS), FOR INTRAMUSCULAR USE 10/26/2008 [facility] TYPHOID VACCINE, CAPSULAR POLYSACCHARIDE (VICPS), FOR INTRAMUSCULAR USE 11/19/2005 [facility] INFLUENZA VIRUS VACCINE, TRIVALENT (IIV3), SPLIT VIRUS, 0.5 ML DOSAGE, FOR INTRAMUSCULAR USE 07/20/2005 [facility] UNLISTED VACCINE/TOXOID 07/02/2005 [facility] SKIN TEST; TUBERCULOSIS, JHONATHAN TEST 06/04/2005 [facility] PURE TONE AUDIOMETRY (THRESHOLD); AIR ONLY 04/03/2007 [facility] IMMUNIZATION ADMINISTRATION (INCLUDES PERCUTANEOUS, INTRADERMAL, SUBCUTANEOUS, OR INTRAMUSCULAR INJECTIONS); 1 VACCINE (SINGLE OR COMBINATION VACCINE/TOXOID) 04/03/2007 [facility] Social History Combined list of available smoking, tobacco, and other social history from Department of Defense and Veterans Affairs facilities. Social History Type Response Date Comment [facility] e Tobacco smoking status NHIS VA-TOBACCO USE FORMER CIGARETTES 02/15/2025 [facility] History of tobacco use VA-TOBACCO NEVER USED OTHER TYPE 02/15/2025 [facility] History of tobacco use VA-TOBACCO FORMER USER 01/20/2024 [facility] History of tobacco use VA-TOBACCO FORMER USER 01/13/2023 [facility] History of tobacco use VA-TOBACCO FORMER USER 12/24/2021 [facility] History of tobacco use VA-TOBACCO FORMER USER 01/07/2021 [facility] History of tobacco use VA-TOBACCO QUIT 5 TO < 15 YRS 01/08/2019 [facility] History of tobacco use FORMER TOBACCO US E >1Y <7Y 12/20/2017 [facility] History of tobacco use FORMER TOBACCO US ER 7Y OR GREATER 12/31/2016 [facility] History of tobacco use FORMER TOBACCO US E >1Y <7Y 12/31/2015 [facility] History of tobacco use FORMER TOBACCO US ER 7Y OR GREATER 01/23/2015 [facility] History of tobacco use CURRENT TOBACCO USER 01/09/2014 [facility] History of tobacco use CURRENT TOBACCO USER 04/19/2012 [facility] History of tobacco use CURRENT TOBACCO USER 01/28/2011 [facility] History of tobacco use CURRENT TOBACCO USER 01/08/2010 [facility] History of tobacco use CURRENT TOBACCO USER 06/24/2007 [facility] This section is an empty social history section. [facility] Plan of Care List of future care activities from Department of Veterans Affairs facilities. Additional future care activities may be listed in the Assessment and Plan section. Date/Time Care Activity Care Activity Detail Facili ty 03/01/2025 AMBULATORY - NONE AMBULATORY - NONE [facility] Advance Directives List of completed, amended, or rescinded Advance Directives on record at Department of Veterans Affairs facilities. An actual copy of the Directive is not included. Date Advance Directive Provider Source 06/21/2007 ADVANCE DIRECTIVE JOE QUINONES [facility]
--- OUTSIDE RECORDS SUMMARY | 2025-02-24 17:08 | XMS_ITS | Continuity of Care Document ---
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 FILTRATION RATE/1.73 SQ M.PREDICTE D [VOLUME RATE/AREA] IN SERUM, PLASMA OR BLOOD BY CREATININE -BASED FORMULA (CKD-EPI 2020) >90 60 02/15 Specimen Type: PLASMA No comment entered. Ordering Provider: QUINTEN BAPTISTE Report Released Date/Time: January 20, 2024 12:23 PM Reporting Lab: [facility] [address] Performing Lab: [facility] [address] [facility] HEMOGLOB IN A1C HEMOGLOBIN A1C/HEMOGL OBIN.TOTAL IN [...] January 20, 2024 12:23 PM Reporting Lab: [facility] [address] Performing Lab: [facility] [address] [place] [address] [facility] LIPID PANEL,NO N-FASTIN G CHOLESTERO L [MASS/VOLU ME] IN SERUM OR PLASMA 194 mg/dL <199 - 199 02/15 Specimen Type: PLASMA No comment entered. Ordering Provider: QUINTEN BAPTISTE Report Released Date/Time: January 20, 2024 12:23 PM Reporting Lab: [facility] [address] Performing Lab: [facility] [address] [place] [address] [facility] LIPID PANEL,NO N-FASTIN G CHOLESTERO L IN HDL [MASS/VOLU ME] IN SERUM OR PLASMA 50 mg/dL 40 02/15 Specimen Type: PLASMA No comment entered. Ordering Provider: QUINTEN BAPTISTE Report Released Date/Time: January 20, 2024 12:23 PM Reporting Lab: [facility] [address] Performing Lab: [facility] [address] [place] [facility] LIPID PANEL,NO N-FASTIN G CHOLESTERO L IN LDL [MASS/VOLU ME] IN SERUM OR PLASMA BY CALCULATIO N 106 mg/dL <99 - 99 02/15 H Specimen Type: PLASMA No comment entered. Ordering Provider: QUINTEN BAPTISTE Report Released Date/Time: January 20, 2024 12:23 PM Reporting Lab: [facility] [address] Performing Lab: [facility] [address] [place] [facility] LIPID PANEL,NO N-FASTIN G CHOLESTERO L IN VLDL [MASS/VOLU ME] IN SERUM OR PLASMA BY CALCULATIO N 38 mg/dL <29 - 29 02/15 H Specimen Type: PLASMA No comment entered. Ordering Provider: QUINTEN BAPTISTE Report Released Date/Time: January 20, 2024 12:23 PM Reporting Lab: [facility] [address] Performing Lab: [facility] [address] [place] [facility] LIPID PANEL,NO N-FASTIN G CHOLESTERO L NON HDL [MASS/VOLU ME] IN SERUM OR PLASMA 144 mg/dL <129 - 129 02/15 H Specimen Type: PLASMA No comment entered. Ordering Provider: QUINTEN BAPTISTE Report Released Date/Time: January 20, 2024 12:23 PM Reporting Lab: [facility] [address] Performing Lab: [facility] [address] [place] [facility] LIPID PANEL,NO N-FASTIN G TRIGLYCERI DE [MASS/VOLU ME] IN SERUM OR PLASMA 188 mg/dL <149 - 149 02/15 H Specimen Type: PLASMA No comment entered. Ordering Provider: QUINTEN BAPTISTE Report Released Date/Time: January 20, 2024 12:23 PM Reporting Lab: [facility] [address] Performing Lab: [facility] [address] [place] [facility] COVID-19 DIAGNOST IC PANEL (BIOFIRE ) CHLAMYDOPH GATO PNEUMONIAE DNA [PRESENCE] IN NASOPHARYN X BY LALITO WITH NON-PROBE DETECTION NOT DETECTED 07/15 Specimen Type: NASOPHARYNG EAL Comment: Chacorta Whitaker ([phone]) Ordering Provider: MICHELLE MORGAN MA Report Released Date/Time: Jul 15, 2024 10:01 AM Reporting Lab: [facility] [address] Performing Lab: [facility] [address] [place] [facility] COVID-19 DIAGNOST IC PANEL (BIOFIRE ) MYCOPLASMA PNEUMONIAE [PRESENCE] IN SPECIMEN BY ORGANISM SPECIFIC CULTURE NOT DETECTED 07/15 Specimen Type: NASOPHARYNG EAL Comment: Chacorta Whitaker ([phone]) Ordering Provider: MICHELLE MORGAN MA Report Released Date/Time: Jul 15, 2024 10:01 AM Reporting Lab: [facility] [address] Performing Lab: [facility] [address] [place] [facility] COVID-19 DIAGNOST IC PANEL (BIOFIRE ) ADENOVIRUS DNA [PRESENCE] IN NASOPHARYN X BY LALITO WITH NON-PROBE DETECTION NOT DETECTED 07/15 Specimen Type: NASOPHARYNG EAL Comment: Chacorta Whitaker ([phone]) Ordering Provider: MICHELLE MORGAN MA Report Released Date/Time: Jul 15, 2024 10:01 AM Reporting Lab: [facility] [address] Performing Lab: [facility] [address] [place] [address] [facility] COVID-19 DIAGNOST IC PANEL (BIOFIRE ) HUMAN METAPNEUMO VIRUS RNA [PRESENCE] IN NASOPHARYN X BY LALITO WITH NON-PROBE DETECTION NOT DETECTED 07/15 Specimen Type: NASOPHARYNG EAL Comment: Chacorta Whitaker ([phone]) Ordering Provider: MICHELLE MORGAN MA Report Released Date/Time: Jul 15, 2024 10:01 AM Reporting Lab: [facility] [address] Performing Lab: [facility] [address] [place] [address] [facility] COVID-19 DIAGNOST IC PANEL (BIOFIRE ) RHINOVIRUS +ENTEROVIR US RNA [PRESENCE] IN NASOPHARYN X BY LALITO WITH NON-PROBE DETECTION NOT DETECTED 07/15 Specimen Type: NASOPHARYNG EAL Comment: Chacorta Whitaker ([phone]) Ordering Provider: MIHCELLE MORGAN MA Report Released Date/Time: Jul 15, 2024 10:01 AM Reporting Lab: [facility] [address] Performing Lab: [facility] [address] [place] [address] [facility] COVID-19 DIAGNOST IC PANEL (BIOFIRE ) INFLUENZA VIRUS A RNA [PRESENCE] IN NASOPHARYN X BY LALITO WITH NON-PROBE DETECTION NOT DETECTED 07/15 Specimen Type: NASOPHARYNG EAL Comment: Chacorta Whitaker ([phone]) Ordering Provider: MICHELLE MORGAN MA Report Released Date/Time: Jul 15, 2024 10:01 AM Reporting Lab: [facility] [address] Performing Lab: [facility] [address] [place] [address] [facility] COVID-19 DIAGNOST IC PANEL (BIOFIRE ) INFLUENZA VIRUS B RNA [PRESENCE] IN NASOPHARYN X BY LALITO WITH NON-PROBE DETECTION NOT DETECTED 07/15 Specimen Type: NASOPHARYNG EAL Comment: Chacorta Whitaker ([phone]) Ordering Provider: MICHELLE MORGAN MA Report Released Date/Time: Jul 15, 2024 10:01 AM Reporting Lab: [facility] [address] Performing Lab: [facility] [address] [place] [address] [facility] COVID-19 DIAGNOST IC PANEL (BIOFIRE ) RESPIRATOR Y SYNCYTIAL VIRUS RNA [PRESENCE] IN NASOPHARYN X BY LALITO WITH NON-PROBE DETECTION NOT DETECTED 07/15 Specimen Type: NASOPHARYNG EAL Comment: Chacorta Whitaker ([phone]) Ordering Provider: MICHELLE MORGAN MA Report Released Date/Time: Jul 15, 2024 10:01 AM Reporting Lab: [facility] [address] Performing Lab: [facility] [address] [place] [facility] COVID-19 DIAGNOST IC PANEL (BIOFIRE ) HUMAN CORONAVIRU S 229E RNA [PRESENCE] IN NASOPHARYN X BY LALITO WITH NON-PROBE DETECTION NOT DETECTED 07/15 Specimen Type: NASOPHARYNG EAL Comment: Chacorta Whitaker ([phone]) Ordering Provider: MICHELLE MORGAN MA Report Released Date/Time: Jul 15, 2024 10:01 AM Reporting Lab: [facility] [address] Performing Lab: [facility] [address] [place] [address] [facility] COVID-19 DIAGNOST IC PANEL (BIOFIRE ) HUMAN CORONAVIRU S HKU1 RNA [PRESENCE] IN NASOPHARYN X BY LALITO WITH NON-PROBE DETECTION NOT DETECTED 07/15 Specimen Type: NASOPHARYNG EAL Comment: Chacorta Whitaker ([phone]) Ordering Provider: MICHELLE MORGAN MA Report Released Date/Time: Jul 15, 2024 10:01 AM Reporting Lab: [facility] [address] Performing Lab: [facility] [address] [place] [facility] COVID-19 DIAGNOST IC PANEL (BIOFIRE ) HUMAN CORONAVIRU S NL63 RNA [PRESENCE] IN NASOPHARYN X BY LALITO WITH NON-PROBE DETECTION NOT DETECTED 07/15 Specimen Type: NASOPHARYNG EAL Comment: Chacorta Whitaker ([phone]) Ordering Provider: MICHELLE MORGAN MA Report Released Date/Time: Jul 15, 2024 10:01 AM Reporting Lab: [facility] [address] Performing Lab: [facility] [address] [place] [address] [facility] COVID-19 DIAGNOST IC PANEL (BIOFIRE ) HUMAN CORONAVIRU S OC43 RNA [PRESENCE] IN NASOPHARYN X BY LALITO WITH NON-PROBE DETECTION NOT DETECTED 07/15 Specimen Type: NASOPHARYNG EAL Comment: Chacorta Whitaker ([phone]) Ordering Provider: MICHELLE MORGAN MA Report Released Date/Time: Jul 15, 2024 10:01 AM Reporting Lab: [facility] [address] Performing Lab: [facility] [address] [place] [facility] COVID-19 DIAGNOST IC PANEL (BIOFIRE ) PARAINFLUE NZA VIRUS 1 RNA [PRESENCE] IN NASOPHARYN X BY LALITO WITH NON-PROBE DETECTION NOT DETECTED 07/15 Specimen Type: NASOPHARYNG EAL Comment: Chacorta Whitaker ([phone]) Ordering Provider: MICHELLE MORGAN MA Report Released Date/Time: Jul 15, 2024 10:01 AM Reporting Lab: [facility] [address] Performing Lab: [facility] [address] [place] [address] [facility] COVID-19 DIAGNOST IC PANEL (BIOFIRE ) [place] NZA VIRUS 2 RNA [PRESENCE] IN NASOPHARYN X BY LALITO WITH NON-PROBE DETECTION NOT DETECTED 07/15 Specimen Type: NASOPHARYNG EAL Comment: Chacorta Whitaker ([phone]) Ordering Provider: MICHELLE MORGAN MA Report Released Date/Time: Jul 15, 2024 10:01 AM Reporting Lab: [facility] [address] Performing Lab: [facility] [address] [place] [address] [facility] COVID-19 DIAGNOST IC PANEL (BIOFIRE ) [place] NZA VIRUS 3 RNA [PRESENCE] IN NASOPHARYN X BY LALITO WITH NON-PROBE DETECTION NOT DETECTED 07/15 Specimen Type: NASOPHARYNG EAL Comment: Chacorta Whitaker ([phone]) Ordering Provider: MICHELLE MORGAN MA Report Released Date/Time: Jul 15, 2024 10:01 AM Reporting Lab: [facility] [address] Performing Lab: [facility] [address] [place] [address] [facility] COVID-19 DIAGNOST IC PANEL (BIOFIRE ) [place] NZA VIRUS 4 RNA [PRESENCE] IN NASOPHARYN X BY LALITO WITH NON-PROBE DETECTION NOT DETECTED 07/15 Specimen Type: NASOPHARYNG EAL Comment: Chacorta Whitaker ([phone]) Ordering Provider: MICHELLE MORGAN MA Report Released Date/Time: Jul 15, 2024 10:01 AM Reporting Lab: [facility] [address] Performing Lab: [facility] [address] [place] [address] [facility] COVID-19 DIAGNOST IC PANEL (BIOFIRE ) TIME TO END-SYSTOL E LEFT VENTRICLE SPECT NOT DETECTED 07/15 Specimen Type: NASOPHARYNG EAL Comment: Chacorta Whitaker ([phone]) Ordering Provider: MICHELLE MORGAN MA Report Released Date/Time: Jul 15, 2024 10:01 AM Reporting Lab: [facility] [address] Performing Lab: [facility] [address] [place] [address] [facility] COVID-19 DIAGNOST IC PANEL (BIOFIRE ) BORDETELLA PERTUSSIS. PERTUSSIS TOXIN PROMOTER REGION [PRESENCE] IN NASOPHARYN X BY LALITO WITH NON-PROBE DETECTION NOT DETECTED 07/15 Specimen Type: NASOPHARYNG EAL Comment: Chacorta Whitaker ([phone]) Ordering Provider: MICHELLE MORGAN MA Report Released Date/Time: Jul 15, 2024 10:01 AM Reporting Lab: [facility] [address] Performing Lab: [facility] [address] [place] [address] [facility] COVID-19 DIAGNOST IC PANEL (BIOFIRE ) IMMUNOFIXA TION FOR BODY FLUID No pathogen s detected 07/15 Specimen Type: NASOPHARYNG EAL Comment: Chacorta Whitaker ([phone]) Ordering Provider: MICHELLE MORGAN MA Report Released Date/Time: Jul 15, 2024 10:01 AM Reporting Lab: [facility] [address] Performing Lab: [facility] [address] [place] [address] [facility] COVID-19 DIAGNOST IC PANEL ([employer] ) SARS-COV-2 (COVID-19) RNA [PRESENCE] IN NASOPHARYN X BY LALITO WITH NON-PROBE DETECTION NOT DETECTED 07/15 Specimen Type: NASOPHARYNG EAL Comment: Chacorta Whitaker ([phone]) Ordering Provider: MICHELLE MORGAN MA Report Released Date/Time: Jul 15, 2024 10:01 AM Reporting Lab: [facility] [address] Performing Lab: [facility] [address] [place] [address] [facility] B 12 COBALAMIN (VITAMIN B12) [MASS/VOLU ME] IN SERUM OR PLASMA 378 pg/mL 213 - 816 01/20 Specimen Type: SERUM Comment: collected 01/19 Ordering Provider: QUINTEN BAPTISTE Report Released Date/Time: January 21, 2024 04:10 PM Reporting Lab: [facility] [address] Performing Lab: [facility] [address] [place] [address] [facility] PSA PROSTATE SPECIFIC AG [MASS/VOLU ME] IN SERUM OR PLASMA 0.95 ng/mL <4.00 - 4.00 01/19 Specimen Type: SERUM No comment entered. Ordering Provider: QUINTEN BAPTISTE Report Released Date/Time: January 20, 2024 12:23 PM Reporting Lab: [facility] [address] Performing Lab: [facility] [address] [place] [address] [facility] HEMOGLOB IN A1C HEMOGLOBIN A1C/HEMOGL OBIN.TOTAL [...] January 13, 2023 03:44 PM Reporting Lab: [place] [address] Performing Lab: [place] [id number] [facility] CBC LEUKOCYTES [#/VOLUME] IN BLOOD BY AUTOMATED COUNT 4.73 10*3/uL 4.0 - 11.0 01/19 Specimen Type: BLOOD No comment entered. Ordering Provider: QUINTEN BAPTISTE Report Released Date/Time: January 13, 2023 03:44 PM Reporting Lab: [place] [id number] Performing Lab: [address] CBC ERYTHROCYT ES [#/VOLUME] IN BLOOD BY AUTOMATED COUNT 4.50 10*6/uL 4.6 - 6.2 01/19 L Specimen Type: BLOOD No comment entered. Ordering Provider: QUINTEN BAPTISTE Report Released Date/Time: January 13, 2023 03:44 PM Reporting Lab: [address] Performing Lab: [address] CBC HEMOGLOBIN [MASS/VOLU ME] IN BLOOD 14.0 g/dL 13.5 - 17.9 01/19 Specimen Type: BLOOD No comment entered. Ordering Provider: QUINTEN BAPTISTE Report Released Date/Time: January 13, 2023 03:44 PM Reporting Lab: [address] Performing Lab: [address] CBC HEMATOCRIT [VOLUME FRACTION] OF BLOOD BY AUTOMATED COUNT 39.8 41 - 54 01/19 L Specimen Type: BLOOD No comment entered. Ordering Provider: QUINTEN BAPTISTE Report Released Date/Time: January 13, 2023 03:44 PM Reporting Lab: [facility] [address] Performing Lab: [place] [address] [place] [address] [facility] CBC MCV [ENTITIC VOLUME] BY AUTOMATED COUNT 88.4 fL 80 - 100 01/19 Specimen Type: BLOOD No comment entered. Ordering Provider: QUINTEN BAPTISTE Report Released Date/Time: January 13, 2023 03:44 PM Reporting Lab: [facility] [address] Performing Lab: [facility] [address] [place] [address] [facility] CBC MCH [ENTITIC MASS] BY AUTOMATED COUNT 31.1 pg 27 - 33 01/19 Specimen Type: BLOOD No comment entered. Ordering Provider: QUINTEN BAPTISTE Report Released Date/Time: January 13, 2023 03:44 PM Reporting Lab: [facility] [address] Performing Lab: [place] [id number] [place] [address] [facility] CBC MCHC [MASS/VOLU ME] BY AUTOMATED COUNT 35.2 g/dL 32.0 - 37.5 01/19 Specimen Type: BLOOD No comment entered. Ordering Provider: QUINTEN BAPTISTE Report Released Date/Time: January 13, 2023 03:44 PM Reporting Lab: [facility] [address] Performing Lab: [facility] [address] [place] [address] [facility] CBC PLATELETS [#/VOLUME] IN BLOOD BY AUTOMATED COUNT 185 10*3/uL 150 - 400 01/19 Specimen Type: BLOOD No comment entered. Ordering Provider: QUINTEN BAPTISTE Report Released Date/Time: January 13, 2023 03:44 PM Reporting Lab: [facility] [address] Performing Lab: [facility] [address] [place] [address] [facility] CBC PLATELET MEAN VOLUME [ENTITIC VOLUME] IN BLOOD BY AUTOMATED COUNT 8.8 fL 7.4 - 10.4 01/19 Specimen Type: BLOOD No comment entered. Ordering Provider: QUINTEN BAPTISTE Report Released Date/Time: January 13, 2023 03:44 PM Reporting Lab: [facility] [address] Performing Lab: [facility] [address] [place] [address] [facility] CBC ERYTHROCYT E DISTRIBUTI ON WIDTH [RATIO] BY AUTOMATED COUNT 12.1 11.5 - 14.5 01/19 Specimen Type: BLOOD No comment entered. Ordering Provider: QUINTEN BAPTISTE Report Released Date/Time: January 13, 2023 03:44 PM Reporting Lab: [facility] [address] Performing Lab: [facility] [address] [place] [address] [facility] LIPID PANEL,NO N-FASTIN G CHOLESTERO L [MASS/VOLU ME] IN SERUM OR PLASMA 200 mg/dL <199 - 199 01/19 H Specimen Type: PLASMA No comment entered. Ordering Provider: QUINTEN BAPTISTE Report Released Date/Time: January 13, 2023 03:44 PM Reporting Lab: [facility] [address] Performing Lab: [facility] [address] [place] [address] [facility] LIPID PANEL,NO N-FASTIN G CHOLESTERO L IN HDL [MASS/VOLU ME] IN SERUM OR PLASMA 56 mg/dL 40 01/19 Specimen Type: PLASMA No comment entered. Ordering Provider: QUINTEN BAPTISTE Report Released Date/Time: January 13, 2023 03:44 PM Reporting Lab: [facility] [address] Performing Lab: [facility] [address] [place] [address] [facility] LIPID PANEL,NO N-FASTIN G CHOLESTERO L IN LDL [MASS/VOLU ME] IN SERUM OR PLASMA BY CALCULATIO N 110 mg/dL <99 - 99 01/19 H Specimen Type: PLASMA No comment entered. Ordering Provider: QUINTEN BAPTITSE Report Released Date/Time: January 13, 2023 03:44 PM Reporting Lab: [facility] [address] Performing Lab: [facility] [address] [place] [facility] LIPID PANEL,NO N-FASTIN G CHOLESTERO L IN VLDL [MASS/VOLU ME] IN SERUM OR PLASMA BY CALCULATIO N 34 mg/dL <29 - 29 01/19 H Specimen Type: PLASMA No comment entered. Ordering Provider: QUINTEN BAPTISTE Report Released Date/Time: January 13, 2023 03:44 PM Reporting Lab: [facility] [address] Performing Lab: [facility] [address] [place] [facility] LIPID PANEL,NO N-FASTIN G CHOLESTERO L NON HDL [MASS/VOLU ME] IN SERUM OR PLASMA 144 mg/dL <129 - 129 01/19 H Specimen Type: PLASMA No comment entered. Ordering Provider: QUINTEN BAPTISTE Report Released Date/Time: January 13, 2023 03:44 PM Reporting Lab: [facility] [address] Performing Lab: [facility] [address] [facility] LIPID PANEL,NO N-FASTIN G TRIGLYCERI DE [MASS/VOLU ME] IN SERUM OR PLASMA 172 mg/dL <149 - 149 01/19 H Specimen Type: PLASMA No comment entered. Ordering Provider: QUINTEN BAPTISTE Report Released Date/Time: January 13, 2023 03:44 PM Reporting Lab: [facility] [address] Performing Lab: [facility] [address] [facility] Vital Signs Combined list of inpatient and outpatient Vital Signs from Department of Defense and Veterans Affairs, ranging from 12 months to all on record, depending upon the facility. Vital Sign Value Date Comments Source SYSTOLIC BLOOD PRESSURE 144 02/15/2025 09:02:02 [facility] DIASTOLIC BLOOD PRESSURE 72 02/15/2025 09:02:02 [facility] PULSE OXIMETRY 96 02/15/2025 09:02:[address] [facility] WEIGHT 200 02/15/2025 09:02:02 [facility] BMI 32 kg/m2 02/15/2025 09:02:02 [facility] PAIN 0 02/15/2025 09:02:02 [place] [facility] 97.8 04/16/2024 10[facility]04:[facility] 53 04/16/2024 10:04:[address] [facility] RESPIRATION 16 04/16/2024 10:04:51 [facility] Encounters Combined list of: 1) Encounters from Department of Veterans Affairs facilities going backup to the last 18 months, not all VA inpatient encounters are included; 2) Encounters from the Department of Defense facilities going backup to 280 months. Location Location Details Encounter Type Encounter Number Reason For Visit Attending Provider ADM Date DC Date Status Disposition Source [facility] OUTPATIENT [id number] 12/18 Released w[facility] OUTPATIENT [id number] 12/23 Released w/o Limitations [facility] OUTPATIENT [id number] 12/31 Released w/o Limitations [facility] OUTPATIENT [id number] 03/27 Released w/o Limitations [facility] OUTPATIENT [id number] 07/19 Released w/o Limitations [facility] OUTPATIENT [id number] 07/29 Released w/o Limitations [facility] OUTPATIENT [id number] 09/23 Released w/o [facility] OUTPATIENT [id number] 07/02 Released w/o [facility] OUTPATIENT [id number] 08/23 Released w/o [facility] OUTPATIENT [id number] 08/23 Released w/o Limitations Theater Facilit y [facility]) OUTPATIENT [id number] FERNANDO ARAUJO 10/20 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 OFFICE O/P NEW HI 60 MIN [id number] Diagnos is: ICD-10- CM G47.33 Obstruc tive sleep apnea (adult) (pediat autumn) DARBY HEMPHILL 10/17 [place] [facility] [place] [facility] Outpatient Encounter [id number] 10/20 [place] [facility] [place] [facility] UNLISTED PULMONARY SVC/PX [id number] Diagnos is: ICD-10- CM G47.33 Obstruc tive sleep apnea (adult) ([facility]) SON CEBALLOS 10/21 [facility] [place] [facility] Outpatient Encounter [id number] Diagnos is: ICD-10- CM G47.33 Obstruc tive sleep apnea (adult) ([facility]) DEBRA CARDENAS S 10/26 [facility] [place] [facility] MEASURE BLOOD OXYGEN LEVEL [id number] Diagnos is: ICD-10- CM G47.33 Obstruc tive sleep apnea (adult) ([facility]) Osman DOHERTY 10/26 [facility] [place] [facility] HC PRO PHONE CALL 11-20 MIN [id number] Diagnos is: ICD-10- CM G47.33 Obstruc tive sleep apnea (adult) ([facility]) DEBRA CARDENAS S 10/28 [facility] [place] [facility] Outpatient Encounter [id number] MARIO PONCE 01/03 [facility] [place] [facility] Outpatient Encounter [id number] 01/04 [facility] [place] [facility] Outpatient Encounter [id number] 01/19 [facility] [place] [facility] OFFICE O/P EST MOD 30 MIN [id number] Diagnos is: ICD-10- CM M54.50 Low back pain, unspeci fied HETAL BAPTISTE 01/19 [facility] [place] [facility] OFFICE O/P NEW LOW 30 MIN [id number] Diagnos is: ICD-10- CM J31.0 Chronic rhiniti s NATALYA CAMPOS 01/29 [place] [facility] [place] [facility] Encounter [id number] 02/07 [place] [facility] [place] [facility] Encounter [id number] 02/15 [place] [facility] [place] [facility] En[facility] [id number] 02/15 [place] [facility] [place] [facility] Encounter [id number] 02/16 [place] [facility] [place] [facility] Encounter [id number] 02/16 [place] [facility] [place] [facility] En[facility] [id number] 02/16 [place] [facility] [place] [facility]counter [id number] 02/21 [place] [facility] [place] [facility]counter [id number] 02/21 [place] [facility] [place] [facility] Encounter [id number] MOUNIKA CORTES 02/22 [place] [facility] [place] [facility] Encounter [id number] 03/02 [place] [facility] [place] [facility] Encounter [id number] 03/09 [place] [facility] [place] [facility] Encounter [id number] 03/14 [place] [facility] [place] [facility] Encounter [id number] 03/14 [place] [facility] [place] [facility]counter [id number] 03/16 [facility] [place] [facility] OFFICE O/P EST LOW 20 MIN [id number] Diagnos is: ICD-10- CM J31.0 Chronic rhiniti s ANDRESNATALYA Tarsha Osman 03/19 [facility] [place] 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 Outpatient Encounter [id number] 03/29 [facility] [place] [facility] Outpatient Encounter [id number] 03/30 [facility] [place] [facility] Outpatient Encounter [id number] 04/04 [facility] [place] [facility] Outpatient Encounter [id number] 04/11 [facility] [place] [facility] Outpatient Encounter [id number] 04/11 [facility] [place] [facility] OFFICE O/P EST MOD 30 MIN [id number] Diagnos is: ICD-10- CM G47.33 Obstruc tive sleep apnea (adult) (pediat autumn) DARBY HEMPHILL 04/16 [facility] [place] [facility] Outpatient Encounter [id number] 04/18 [facility] [place] [facility] HC PRO PHONE CALL 21-30 MIN [id number] Diagnos is: ICD-10- CM R03.0 Elevate d blood-p ressure reading , w/o diagnos is of htn OLGA ZIMMERMAN 05/02 [facility] [place] [facility] Outpatient Encounter [id number] 05/02 [facility] [place] [facility] Outpatient Encounter [id number] 05/08 [place] [facility] [place] [facility] Outpatient Encounter [id number] 05/15 [place] [facility] [place] [facility] Outpatient Encounter [id number] 05/17 [place] [facility] [place] [facility] Outpatient Encounter [id number] 05/21 [place] [facility] [place] [facility] Outpatient Encounter [id number] 05/21 [place] [facility] [place] [facility] Outpatient Encounter [id number] 05/26 [facility] [place] [facility] Outpatient [facility]counter [id number] 06/12 [facility] [place] [facility] EMERGENCY DEPT VISIT LOW MDM [id number] Diagnos is: ICD-10- CM L03.039 Celluli tis of unspeci fied LEONELA Cerna 06/14 [facility] [place] [facility] Outpatient Encounter [id number] 07/02 [facility] [place] [facility] Outpatient Encounter [id number] 07/06 [facility] [place] [facility] EMERGENCY DEPT VISIT MOD MDM [id number] Diagnos is: ICD-10- CM J06.9 Acute upper respira tory infecti on, unspeci fied Lilly BENAVIDEZ 07/15 [facility] [place] [facility] Outpatient Encounter [id number] 07/15 [facility] [place] [facility] Outpatient Encounter [id number] 07/18 [facility] [place] [facility] Outpatient Encounter [id number] 08/01 [facility] Outpatient Encounter [id number] 08/15 [facility] [place] [facility] Outpatient Encounter [id number] 08/22 [facility] Outpatient Encounter [id number] 08/29 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 Outpatient Encounter [id number] 01/23 [facility] NQHP OL DIG ASSMT&MGMT 21+ [id number] Diagnos is: ICD-10- CM F10.90 Alcohol use, unspeci fied, uncompl icated MIGUEL, ALEX A 02/12 [facility] Outpatient Encounter [id number] 02/14 [facility] Outpatient Encounter [id number] 02/15 [facility] OFFICE O/P EST MOD 30 MIN [id number] Diagnos is: ICD-10- CM M54.50 Low back pain, unspeci fied VAN SANCHEZBE NJAMIN E 02/15 [facility] Outpatient Encounter [id number] 02/18 [facility] Outpatient Encounter [id number] Diagnos is: ICD-10- CM Z12.11 Encount er for screeni ng for maligna nt neoplas m of colon TONIE MORALES SHARIF [place] 02/18 [facility] [place] [facility] Outpatient Encounter [id number] GLORIA ELLIOTT 02/24 [facility] Procedures Combined list of: 1) Procedures from Department of Veterans Affairs facilities going back up to thelast 18 months, not all [place] non-surgical procedures are included; 2) All procedures from the Department of Defense facilities. Procedure Procedure Type Code Date Perfomer Comments [facility] e ENT Services ENT Services 03526 10/21/2009 BONNIE HERNANDES Special Services Analysis Of Computerized Data Special Services Analysis Of Computerized Data 71107 10/21/2009 BONNIE HERNANDES Audiometry Group Testing Audiometry Group Testing 75115 10/21/[address].-Supervised Group Educational Services 10/21/2009 BONNIE HERNANDES oD Threshold Audiogram (Pure Tone) Threshold Audiogram (Pure Tone) 83199 10/21/2009 BONNIE HERNANDES PURE TONE AUDIOMETRY (THRESHOLD); AIR ONLY 10/20/2009 [facility] COLLECTION OF VENOUS BLOOD BY VENIPUNCTURE 10/16/2009 [facility] ANALYSIS OF CLINICAL DATA STORED IN COMPUTERS (EG, ECGS, BLOOD PRESSURES, HEMATOLOGIC DATA) 12/03/2008 [facility] ELECTROCARDIOGRAM, ROUTINE ECG WITH AT LEAST 12 LEADS; WITH INTERPRETATION AND REPORT 11/26/2008 [facility] TYPHOID VACCINE, CAPSULAR POLYSACCHARIDE (VICPS), FOR INTRAMUSCULAR USE 10/26/2008 [facility] TYPHOID VACCINE, CAPSULAR POLYSACCHARIDE (VICPS), FOR INTRAMUSCULAR USE 11/19/2005 [facility] INFLUENZA VIRUS VACCINE, TRIVALENT (IIV3), SPLIT VIRUS, 0.5 ML DOSAGE, FOR INTRAMUSCULAR USE 07/20/2005 [facility] UNLISTED VACCINE/TOXOID 07/02/2005 [facility] SKIN TEST; TUBERCULOSIS, JHONATHAN TEST 06/04/2005 [facility] PURE TONE AUDIOMETRY (THRESHOLD); AIR ONLY 04/03/2007 [facility] IMMUNIZATION ADMINISTRATION (INCLUDES PERCUTANEOUS, INTRADERMAL, SUBCUTANEOUS, OR INTRAMUSCULAR INJECTIONS); 1 VACCINE (SINGLE OR COMBINATION VACCINE/TOXOID) 04/03/2007 [facility] Social History Combined list of available smoking, tobacco, and other social history from Department of Defense and Veterans Affairs facilities. Social History Type Response Date Comment [facility] e Tobacco smoking status NHIS VA-TOBACCO USE FORMER CIGARETTES 02/15/2025 [facility] History of tobacco use VA-TOBACCO NEVER USED OTHER TYPE 02/15/2025 [facility] History of tobacco use VA-TOBACCO FORMER USER 01/20/2024 [facility] History of tobacco use VA-TOBACCO FORMER USER 01/13/2023 [facility] History of tobacco use VA-TOBACCO FORMER USER 12/24/2021 [facility] History of tobacco use VA-TOBACCO FORMER USER 01/07/2021 [facility] History of tobacco use VA-TOBACCO QUIT 5 TO < 15 YRS 01/08/2019 [facility] History of tobacco use FORMER TOBACCO US E >1Y <7Y 12/20/2017 [facility] History of tobacco use FORMER TOBACCO US ER 7Y OR GREATER 12/31/2016 [facility] History of tobacco use FORMER TOBACCO US E >1Y <7Y 12/31/2015 [facility] History of tobacco use FORMER TOBACCO US ER 7Y OR GREATER 01/23/2015 [facility] History of tobacco use CURRENT TOBACCO USER 01/09/2014 [facility] History of tobacco use CURRENT TOBACCO USER 04/19/2012 [facility] History of tobacco use CURRENT TOBACCO USER 01/28/2011 [facility] History of tobacco use CURRENT TOBACCO USER 01/08/2010 [facility] History of tobacco use CURRENT TOBACCO USER 06/24/2007 [facility] This section is an empty social history section. [facility] Plan of Care List of future care activities from Department of Veterans Affairs facilities. Additional future care activities may be listed in the Assessment and Plan section. Date/Time Care Activity Care Activity Detail Facili ty 03/01/2025 AMBULATORY - NONE AMBULATORY - NONE [facility] Advance Directives List of completed, amended, or rescinded Advance Directives on record at Department of Veterans Affairs facilities. An actual copy of the Directive is not included. Date Advance Directive Provider Source 06/21/2007 ADVANCE DIRECTIVE JOE QUINONES [facility]
--- OUTSIDE RECORDS SUMMARY | 2025-02-24 17:10 | XMS_ITS | Clinical Summary ---
Author Organization [employer] [facility] [employer] [facility] Address [address] [place] [address] Care Team Providers Care Coating Manager Name Role Phone Pcp, No Primary Care Provider Unavailabl e Allergies Active Allergy Reactions Criticality Noted Date Comments Bupropion Hcl Hives 11/29/2019 Medications ZYRTEC 10 MG TAB take 1 tablet (10 mg) by oral route once daily 0 Active acetaminophen (TYLENOL EXTRA STRENGTH) 500 mg tablet Take 500 mg by mouth every 6 hours if needed. Max acetaminophen dose: 4000mg in 24 hrs. Active rosuvastatin (CRESTOR) 20 mg tablet Take 20 mg by mouth at bedtime. Active traMADol (ULTRAM) 50 mg tablet Take 50 mg by mouth 3 times daily if needed for Pain. Active predniSONE (DELTASONE) 20 mg tabletIndicati ons:Rash Take 2 tabs by mouth for 6 days, 1 tab for 6 days, 1/2 tab for 6 days. 21 tablet 0 Active Active Problems No known active problems Immunizations Immunization Administration Dates Next Due Anthrax Vaccine 07/20/2005,07/02/2005,06/04/2005 HepA-HepB (Twinrix) 03/22/2005,03/25/2004 Hepatitis A (Adult) 12/16/2001 Hepatitis B (Adult) 07/02/2005 Influenza A (H1N1), Inactiva allan (Age >=3 Years) 08/04/2009 Influenza, IIV3 (Age >=3 years) 07/13/20 09,08/18/2008,07/28/2007,2004 MMR 04/09/1982 Meningococcal, Unspecified 03/28/2004 Oral Polio Vaccine 04/09/1982 Smallpox (Vaccinia) Live [id number] 07/02/2005, Td (Age >=7 Years) 12/16/2001,11/26/1999 Tuberculin (PPD) 09/20/2009,06/04/2005 Typhoid, Unspecified 11/19/2005,03/28/2004 Yellow Fever 03/28/2004 Family History Medical History Relation Name Comments Stroke Father around age 70 Diabetes Mother late, mild Hypertension Mother Heart Disease Other 1 none Cancer Other 2 none Hyperlipidemia Other 3 none Relation Name Status Comments Father Alive Mother Alive Other 1 Other 2 Other 3 Social History Tobacco Use Types Packs/Day Years Used Date Smoking Tobacco: Former Cigarettes Smokeless Tobacco: Never Tobacco Cessation:Ready to Q uit: No; Counseling Given: Yes Alcohol Use Standard Drinks/Week Comments Yes 0 (1 standard drink = 0.6 oz pur e alcohol) socially Sex and Gender Information Value Date Recorded Sex Assigned at Not on file 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 Gender Identity Not on file Sexual Orientation Not on file 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 on file Not on file Not on file [employer] Not on file Not on file Not on file Obstetrics History Last Filed Vital Signs Vital Sign Reading Time Taken Comments Blood Pressure 138/89 11/29/2019 12:47 PM CDT Pulse 72 11/29/2019 12:47 PM CDT Temperature 36.6 C (97.8 F) 11/29/2019 12:47 PM CDT Respiratory Rate 16 11/29/2019 12:47 PM CDT Oxygen Saturation 93% 11/29/2019 12:47 PM CDT Inhaled Oxygen Concentration - - Weight 85.7 kg (189 lb) 11/29/2019 12:47 PM CDT Height 170.2 cm (5' 7) 11/20/2019 12:40 PM CDT Body Mass Index 29.6 11/20/2019 12:40 PM CDT Plan of Treatment Health Maintenance Due Date Last Done Comments Tdap 1975 Depression screening for age 12+ 1976 HIV for age 15-65 1979 BMI (ht and wt on same day) for age 18+ 1982 Hepatitis C screening for ag e 18-79 1982 Colonoscopy through age 75 2009 Tetanus booster 12/17/2011 12/16/2001, 11/26/1999 Lipids for age 45-75 04/09/2013 04/09/2008 Pneumococcal series for age 50+ (1 of 1 - PCV) 2014 Zoster (shingles) series for age 50+ (1 of 2) 2014 COVID-19 vaccine series (3 - season) 2024 06/29/2023, 05/27/2022 Influenza Vaccine (Season Ended) 2025 07/13/2009, 08/18/2008, 07/28/2007, Additional history exists RSV vaccine for adults or (1 - 1-dose 75+ series) 2039 Hepatitis B series for 19+ Completed 07/02, 03/22/2005, 03/25/2004 Procedures Procedure Name Priority Date/Time Associated Diagnosis Comments LIPID PANEL Routine 04/09/2008 7:30 AM CDT Screening For Cardiovascular Condition from Last 3 Months or Most Recently Relevant to Health Maintenance Results * (ABNORMAL) LIPID PANEL (04/09/2008 7:30 AM CDT) CHOLESTEROL,TOTAL 242(H) 110 - 199 mg/dL [facility] TRIGLYCERIDES 133 <150 mg/dL [facility] HDL CHOLESTEROL 51 >40 mg/dL [facility] CHOL/HDL RATIO 4.75(H) <4.51 [facility] LDL CHOLESTEROL 164(H) <131 mg/dL [facility] PATIENT STATUS Fasting [facility] Blood specimen (specimen) BLOOD SPECIMEN / Unknown 04/09/2008 7:30 AM CDT 04/09/2008 7:29 AM CDT us Jordan Hobbs MD CHEMISTRY Final Re sult [facility] [address] [place] [address] from Last 3 Months or Most Recently Relevant to Health Maintenance Insurance [facility] [employer] [facility] ROXY CUI * Guarantor: [employer] Account Type Relation to Patient Date of Phone Billing Address [facility] [employer] [address] [place] [address] Care Teams Coating Manager Relationship Specialty Start Date End Date Pcp, No . PCP - General 10/05/13
--- OUTSIDE RECORDS SUMMARY | 2025-02-24 17:11 | XMS_ITS | Clinical Summary ---
Author Organization [facility] Address [address] [place] [address] Care Team Providers Care Community Engagement Specialist Name Role Phone Avni Hernandez MD Primary Care Provider Un available Source Comments You are receiving this document as you are listed as the primary care provider,follow-up provider, or the patient has been referred to you for consultation.This is in compliance with the Medicare andMedicaid EHR Incentive Program,which states Providers who transition their patient to another setting of careor provider of care or refers their patient to another provider of care shouldprovide summary care record for each transition of care or referral. [facility] Allergies Active Allergy Reactions Criticality Noted Date Comments Varenicline Hives High 09/24/2022 Medications loratadine (CLARITIN) 10 MG tablet Take 1 Tablet (10 mg) by mouth daily. Active atorvastatin (LIPITOR) 10 MG tablet Take 1 Tablet (10 mg) by mouth daily. Active omeprazole (PRILOSEC) 20 MG capsule Take 1 Capsule (20 mg) by mouth daily. Take 1 hour before a meal. Active celecoxib (CELEBREX) 200 MG capsule Take 1 Capsule (200 mg) by mouth two times a day. Active melatonin 5 MG tablet Take 1 Tablet (5 mg) by mouth daily at bedtime. Active Immunizations Immunization Administration Dates Next Due Flublok (RIV4) 05/27/2022 Influenza IIV4 (Quadrivalent) 0.5mL (68031) 1010/2020,07/02/2019 Pfizer Bivalent 12+ 05/27/2022 Pfizer Monovalent 12+ Purple Top 07/01/2021 Tdap 06/04/2017 Social History Tobacco Use Types Packs/Day Years Used Date Smoking Tobacco: Never Assessed Sex and Gender Information Value Date Recorded Sex Assigned at Not on file Legal Sex Male 7:33 AM CDT Gender Identity Not on file Sexual Orientation Not on file Last Filed Vital Signs Vital Sign Reading Time Taken Comments Blood Pressure 159/79 09/24/2022 2:56 PM EXTRUDER TENDER Pulse 88 09/24/2022 2:56 PM EXTRUDER TENDER Temperature 37.3 C (99.1 F) 09/24/2022 2:56 PM EXTRUDER TENDER Respiratory Rate 18 09/24/2022 2:56 PM EXTRUDER TENDER Oxygen Saturation 95% 09/24/2022 2:56 PM EXTRUDER TENDER Inhaled Oxygen Concentration - - Weight - - Height - - Body Mass Index - - Plan of Treatment Health Maintenance Due Date Last Done Comments Colon Cancer Screening Plan Due 1965 Hep C Screening (Preventive Services) 1965 PSA Screening Discussion 1964 HIV Screening (Preventive Services) 1980 Adult Preventive Visit 1982 Cholesterol 1999 Pneumococcal Vaccine 50+ Yrs (1 of 1 - PCV) 2014 Zoster/Shingles Vaccine (1 o f 2) 2014 COVID-19 Vaccine (3 - 2023-2 5 season) 2024 05/27/2022, 07/01/2021 Influenza Vaccine (Season Ended) 2025 05/27/2022, 06/13/2021, 07/02/2019 DTaP/Tdap/Td Vaccine (2 - Tdap) 06/04/2027 06/04/2017 RSV Vaccine (1 - 1-dose 75+ series) 2039 HepA Vaccine Aged Out No longer eligi ble based on patient's age to complete this topic HepB Vaccine Aged Out No longer eligi ble based on patient's age to complete this topic Hib Vaccine Aged Out No longer eligi ble based on patient's age to complete this topic IPV (Polio) Vaccine Aged Out No longe r eligible based on patient's age to complete this topic MCV4 Vaccine Aged Out No longer eligi ble based on patient's age to complete this topic Meningococcal B Vaccine Aged Out No l onger eligible based on patient's age to complete this topic Insurance * Guarantor: [employer] Account Type Relation to Patient Date of Phone Billing Address Personal/Family Self 1965 [address] [place] [address] [facility] Care Teams Community Engagement Specialist Relationship Specialty Start Date End Date Avni Hernandez MD [address] [facility] [address] [place] [address] PCP - General 12/14/10
[2025-02-24 17:17] VITALS: BP 150/83; PULSE 97; RESP 18; TEMP 36.3; O2SAT 92; BMI 31.3
--- NOTE | 2025-02-24 17:26 | ED.NAVMDI ---
HPI - Nausea/Vomiting/Diarrhea General Time Seen by Provider: 17:26 Date Seen: 02/24/25 Chief complaint: Diarrhea Stated complaint: Weak, vomiting, Diarrhea Time Seen by Provider: 02/24/25 17:24 Source: patient and RN notes reviewed Mode of arrival: ambulatory Limitations: no limitations History of Present Illness HPI Narrative: This 59-year-old male is ambulatory into the ED accompanied by his with concern of nausea vomiting and diarrhea. Yesterday he went to bed early, was feeling increased low back pain in generalized achiness. Around 2:00 a.m. he woke up and started having diarrhea. He has been having diarrhea ongoing since 2:00 a.m.. He has been drinking red Gatorade and thus he states he really can not tell if there is any blood, things are tinted read. They went out to do chores this afternoon, was super humid and he became overheated, did vomit once after that. States he has been able to eat since yesterday, has been able to drink the Gatorade. His had symptoms this past Tuesday, today is Tuesday, where she had about 1 day of achiness and diarrhea. She notes hers really was probably under 12 hours of symptoms. They note no travel, she is probably his only known ill contact. No recent antibiotic use, no history of C difficile. He had a colonoscopy about 10 years ago, is due to get 1 scheduled, awaiting the NH to get this done. He states he has had some lower abdominal pain that goes from side to side, described as cramping before bowel movements. He has had remote history of bilateral inguinal hernia repairs, maybe 40 years ago. He has had a total hip replacement. Related Data Home Medications ?Medication ?Instructions ?Recorded ?Confirmed atorvastatin .ROUTE 02/24/25 celecoxib 100 mg capsule (Celebrex) 100 mg PO DAILY 02/24/25 02/24/25 loratadine 10 mg capsule 10 mg PO DAILY 02/24/25 02/24/25 omeprazole 20 mg tablet,delayed 20 mg PO DAILY 02/24/25 02/24/25 release Previous Rx's ?Medication ?Instructions ?Recorded ondansetron 4 mg disintegrating 4 mg PO Q6H PRN nausea and 02/24/25 tablet vomiting #20 tabs Allergies Allergy/AdvReac Type Severity Reaction Status Date / Time bupropion Allergy Mild Verified 02/24/25 17:17 Review of Systems Status of ROS: Reports: 6 or more systems reviewed and unremarkable except as noted in History and below PFSH PFS Social History Smoking Status: Never smoker How often do you have a drink containing alcohol: 4 or more times a week How many standard drinks containing alcohol do you have on a typical day: 3 or 4 How often do you have six or more drinks on one occasion: Never AUDIT-C Alcohol total score: 5 Non-prescribed substance use: denies use Exam Const: Vital Signs, click to edit/add: Vital Signs - 24 hr 02/24/25 17:17 02/24/25 17:34 02/24/25 18:13 Temperature 97.4 F L Pulse Rate [Pulse Oximeter] 97 Respiratory Rate 18 18 Blood Pressure [Ri ght Upper Arm] 150/83 H Pulse Oximetry 92 95 87 L Oxygen Delivery Me thod Room Air Room Air Oxygen Flow Rate 2 This 59-year-old male is alert, interactive, no apparent distress. Sclera clear, conjugate gaze, sitting up on the bed, speech normal, speaking easily in full sentences. Face atraumatic. Lungs are clear, good air entry, no wheezing or crackles, no accessory muscle use. CV regular rate and rhythm, no murmur, normal S1-S2. Abdomen is soft, nontender, nondistended, no organomegaly, no rebound or guarding. Faint bowel sounds heard but no concerning sounds to his bowels. Skin visualized without rash. Patient is ambulatory into the ED of his own accord. Documenting provider has reviewed patient's vital signs: yes Course Course ED Course: This patient is presenting with probable gastroenteritis given his was sick earlier this week. We did discuss that patients can have the same infection and present differently. We will place an IV, start a L of IV fluids in give 4 mg IV Zofran. We will check basic blood work at this time. His clinical exam reveals no abdominal tenderness, no acute abdomen. I am inclined to forego imaging and tell we have labs back. If labs are stable and he remains clinically stable, has some response from the fluids, likely to discharge to home with further ongoing conservative management. If his labs are concerning, will consider imaging. Reevaluation(s) Time of Reevaluation #1: 18:36 Reevaluation #1: Did review with patient that his C reactive protein is elevated. His sodium is mildly low likely due to his illness, did look in records at [facility] and last sodium checked there in September of 2019 was 141. No prior liver functions noted. Patient when falling asleep he is dipping down to 87%. He has responded to 2 L nasal cannula oxygen. He does have sleep apnea, uses CPAP at home. Did discuss my desire to do CT imaging just to ensure that we are not missing something more clinically. They are in agreement. He does not have any respiratory symptoms. Time of Reevaluation #2: 19:46 Reevaluation #2: Have reviewed CT findings with patient, they are reassuring, just diarrheal illness, no colonic thickening, no obstruction. His appendix is normal. We did review the fatty liver, he states he is aware of this, he gets his liver functions followed yearly per his report. Did briefly discuss with him fatty liver can be helped with exercise, diet with a goal of weight loss and following heart healthy/low-fat diet. He can talk to his primary care provider further about this. We discussed avoidance of antidiarrheals at this point, can consider it feels lingering diarrhea but is overall feeling better. Will send in a prescription Zofran for him, he will have me send this to his pharmacy and pick it up tomorrow. Vital Signs Vital signs: Initial Vital Signs Temperature 97.4 F L 02/24/25 17:17 Temperature Source Temporal Artery Scan 02/24/25 17:17 Pulse Rate 97 02/24/25 17:17 Pulse Rhythm Regular 02/24/25 17:17 Respiratory Rate 18 02/24/25 17:17 Blood Pressure 150/83 H 02/24/25 17:17 Blood Pressure Mean 105 02/24/25 17:17 Blood Pressure Position Supine 02/24/25 17:17 Pulse Oximetry 92 02/24/25 17:17 Oxygen Delivery Method Room Air 02/24/25 17:17 Vital Signs Temperature 97.4 F L 02/24/25 17:17 Pulse Rate 97 02/24/25 17:17 Respiratory Rate 18 02/24/25 17:17 Blood Pressure 150/83 H 02/24/25 17:17 Pulse Oximetry 92 02/24/25 17:17 Oxygen Delivery Method Room Air 02/24/25 17:17 Temperature 97.4 F L 02/24/25 17:17 Pulse Rate 97 02/24/25 17:17 Respiratory Rate 18 02/24/25 18:13 Blood Pressure 150/83 H 02/24/25 17:17 Pulse Oximetry 87 L 02/24/25 18:13 Oxygen Delivery Method Room Air 02/24/25 18:13 Oxygen Flow Rate 2 02/24/25 18:13 Medications Administered Medications: Discontinued Medications Generic Name Dose Route Start Last Admin Trade Name Freq PRN Reason Stop Dose Admin Sodium Chloride 1,000 mls @ 1,000 mls/hr 02/24/25 17:34 02/24/25 18:00 0.9 % Sodium Chloride 1000 Ml IV 02/24/25 18:33 1,000 mls/hr .Q1H SATHYA Administration Ondansetron HCl 4 mg 02/24/25 17:34 02/24/25 18:00 Ondansetron 2 Mg/Ml Inj IVP 02/24/25 17:35 4 mg ONCE ONE Administration MDM - Nausea/Vomiting/Diarrhea Lab Data Attestation: I reviewed the patient's lab results. Labs: Lab Results 02/24/25 Range/Units 17:46 WBC 6.36 (4.50-11.00) K/uL RBC 4.93 (4.30-5.90) m/uL Hgb 14.7 (13.5-17.5) gm/dL Hct 43.7 (37.0-53.0) % MCV 89 (80-100) fL MCH 30 (26-34) pg MCHC 34 (32-36) gm/dL RDW Coeff of Gino 12.4 (11.5-15.5) % Plt Count 155 (140-440) K/uL Neut % (Auto) 85.9 H (42.0-72.0) % Lymph % (Auto) 7.5 L (20-44) % Noble % (Auto) 6.4 (0.0-11.0) % Eos % (Auto) 0.0 (0.0-7.0) % Baso % (Auto) 0.0 (0.0-3.0) % Neut # (Auto) 5.50 (1.7-7.0) K/uL Lymph # (Auto) 0.50 L (0.90-2.90) K/uL Noble # (Auto) 0.40 (0.00-0.90) K/UL Eos # (Auto) 0.00 (0.00-0.50) K/uL Baso # (Auto) 0.00 (0.00-0.30) K/uL Abs Immat Gran (auto) 0.01 (0.00-0.30) K/uL Imm/Tot Granulo (auto) 0.2 % Sodium 130 L (135-149) mmol/L Potassium 4.0 (3.6-5.1) mmol/L Chloride 93 L (96-114) mmol/L Carbon Dioxide 24 (20-32) mmol/L Anion Gap 13 (7-15) mEq/L BUN 10 (7-30) mg/dL Creatinine 1.1 (0.5-1.5) mg/dL Estimated Creat Clear 66.77 Estimated GFR 77 ml/min Glucose 138 H (60-115) mg/dL Lactate 1.1 (0.5-1.9) mmol/L Calcium 9.2 (8.4-10.6) mg/dL Total Bilirubin 1.0 (0.1-1.5) mg/dL AST 44 H (12-35) U/L ALT 74 H (4-50) U/L Alkaline Phosphatase 81 (40-150) U/L C-Reactive Protein 18.4 H (0.5-1.0) mg/dL Total Protein 8.5 H (6.0-8.3) g/dL Albumin 5.0 (3.3-5.0) g/dL Imaging Data CT scan - abdomen: Attestation: I have reviewed the pertinent imaging results. Radiologist's impression: Patient: TOMMY ESCALANTE Facility:?[facility] Patient ID:?[id number] Site Patient ID:?[id number]. Site :?[id number] Study:?CT-Abdomen/Pelvis W/ 98CC [id number] 6:59:13 PM Ordering Physician:Sulaiman Izaguirre Final Report: Indication: ABD PAIN, DIARRHEA, VOMITING, INC CRP Technique: CT Abdomen/Pelvis W/ 98CC [id number] Please note that all CT scans at this facility use dose modulation, iterative reconstruction, and/or weight-based dosing when appropriate to reduce radiation dose to as low as reasonably achievable. Comparison: None Findings: Colonic stool is absent. There is fluid and air distention of the colon without transition point compatible with diarrheal illness. No small bowel obstruction. A few scattered sub cm lymph nodes are present without suspicious adenopathy. Ectasia of the aorta measures 2.8 cm. Normal appendix. Bladder distended. No hydronephrosis. Kidneys normal. Normal adrenal glands and spleen. Normal pancreas. Gallbladder is nondistended. Fatty liver. Lung bases clear. Mild spondylolisthesis of L5 on S1. Impression: Diarrheal illness. No mechanical obstruction. Please note that all CT scans at this facility use dose modulation, iterative reconstruction, and/or weight-based dosing when appropriate to reduce radiation dose to as low as reasonably achievable. Dictated by Valentin Boone MD @ 02/24/2025 7:31:28 PM (Electronic Signature) Discharge Plan Discharge Clinical Impression: Gastroenteritis Patient Disposition: Home, Self-Care Condition: Stable Instructions: Gastroenteritis (ED), Nutrition Tips for Relief of Diarrhea (ED) Additional Instructions: Can use Zofran to help decrease nausea and allow ongoing fluid intake; follow hand out for recommendations on eating with diarrhea. This is very likely viral given normal white blood count and CT not showing any concerning findings. Would not take any antidiarrheals for the 1st few days of illness, can consider if you have lingering diarrhea but are improving. If you are not improving in the next couple days, feel you are worsening at any point or have further concerns, please seek re-evaluation. Activity Level: Activity as Tolerated Prescriptions: New ondansetron 4 mg tablet,disintegrating 4 mg PO Q6H PRN (Reason: nausea and vomiting) Qty: 20 0RF No Action atorvastatin .ROUTE loratadine 10 mg capsule 10 mg PO DAILY omeprazole 20 mg tablet,delayed release (DR/EC) 20 mg PO DAILY celecoxib [Celebrex] 100 mg capsule 100 mg PO DAILY Follow Up/Referrals: Provider,Not a Local [Primary Care Provider, Family Practice] Stand Alone Forms: [employer] Info Instructions
[2025-02-24 17:34] VITALS: O2SAT 95
[2025-02-24 17:52] LABS: Lactate* 1.1 mmol/L (0.5-1.9)
[2025-02-24 17:54] LABS: Hematocrit 43.7 % (37.0-53.0); Hemoglobin* 14.7 gm/dL (13.5-17.5); Immature Granulocytes Abs Auto 0.01 K/uL (0.00-0.30); Immature Granulocytes Pct Auto 0.2 %; Lymphocytes Percent Auto 7.5 % (20-44); Mean Corpuscular HGB Conc 34 gm/dL (32-36); Mean Corpuscular Hemoglobin 30 pg (26-34); Mean Corpuscular Volume 89 fL (80-100); Monocytes Percent Auto 6.4 % (0.0-11.0); Neutrophils Percent Auto 85.9 % (42.0-72.0); Platelet Count* 155 K/uL (140-440); RDW Coefficient of Variation % 12.4 % (11.5-15.5); Red Blood Count 4.93 m/uL (4.30-5.90); White Blood Count* 6.36 K/uL (4.50-11.00)
[2025-02-24 17:55] LABS: Slide Review Reflex No
[2025-02-24] MEDS: 0.9 % SODIUM CHLORIDE 1000 ml 1,000 ML IV (18:00)
[2025-02-24] MEDS: ONDANSETRON 2 MG/ML inj 4 MG IVP (18:00)
[2025-02-24 18:10] LABS: Chloride* 93 mmol/L (96-114); Sodium* 130 mmol/L (135-149)
[2025-02-24 18:13] VITALS: RESP 18; O2SAT 87
[2025-02-24 18:13] LABS: Blood Urea Nitrogen* 10 mg/dL (7-30); Creatinine* 1.1 mg/dL (0.5-1.5); Est. Creatinine Clearance* 66.77; Estimated Glomerular Filt Rate 77 ml/min
[2025-02-24 18:14] LABS: Alanine Aminotransferase* 74 U/L (4-50); Alkaline Phosphatase* 81 U/L (40-150); Anion Gap 13 mEq/L (7-15); Aspartate Amino Transferase* 44 U/L (12-35); Calcium* 9.2 mg/dL (8.4-10.6); Carbon Dioxide* 24 mmol/L (20-32); Glucose* 138 mg/dL (60-115); Total Protein* 8.5 g/dL (6.0-8.3)
[2025-02-24 18:28] LABS: C Reactive Protein* 18.4 mg/dL (0.5-1.0)
--- NOTE | 2025-02-24 18:37 | CRLHL7_ITS ---
For Patients: As a result of the 21st Century Cures Act, medical imaging exams and procedure reports are released immediately into your electronic medical record. You may view this report before your referring provider. If you have questions, please contact your health care provider. Indication: ABD PAIN, DIARRHEA, VOMITING, INC CRP Technique: CT Abdomen/Pelvis W/ 98CC [id number] Please note that all CT scans at this facility use dose modulation, iterative reconstruction, and/or weight-based dosing when appropriate to reduce radiation dose to as low as reasonably achievable. Comparison: None Findings: Colonic stool is absent. There is fluid and air distention of the colon without transition point compatible with diarrheal illness. No small bowel obstruction. A few scattered sub cm lymph nodes are present without suspicious adenopathy. Ectasia of the aorta measures 2.8 cm. Normal appendix. Bladder distended. No hydronephrosis. Kidneys normal. Normal adrenal glands and spleen. Normal pancreas. Gallbladder is nondistended. Fatty liver. Lung bases clear. Mild spondylolisthesis of L5 on S1. Impression: Diarrheal illness. No mechanical obstruction. Please note that all CT scans at this facility use dose modulation, iterative reconstruction, and/or weight-based dosing when appropriate to reduce radiation dose to as low as reasonably achievable. Dictated by Valentin Boone MD @ 02/24/2025 7:31:28 PM (Electronically Signed)
[2025-02-24 20:09] VITALS: BP 133/75; PULSE 84; RESP 18; TEMP 37.6; O2SAT 90
== END 2025-02-24 20:01 | disposition home or self-care (01) ==
PROVIDERS: Emergency Provider Family Medicine
DX: K52.9 Noninfective gastroenteritis and colitis, unspecified (principal); R11.2 Nausea with vomiting, unspecified
CPT/HCPCS: 36415; 74177; 80053; 83605; 85025; 86140; 94761; 96361; 96374; 99284; 99285; J2405; J7030; Q9967

== ENCOUNTER 2025-06-12 07:03 | Outpatient (CLI) | payer OTHER, SELFPAY ==
--- NOTE | 2025-06-12 07:15 | CRLHL7_ITS ---
For Patients: As a result of the 21st Century Cures Act, medical imaging exams and procedure reports are released immediately into your electronic medical record. You may view this report before your referring provider. If you have questions, please contact your health care provider. CLINICAL INDICATION: Medial left knee pain. COMPARISON STUDIES: None. TECHNICAL: Noncontrast MRI of the left knee. 1.5 jamilah MRI scanner. Axial, sagittal and coronal T1, PD, PD FS, stir and T2 FS images. FINDINGS: MEDIAL COMPARTMENT: Medial Meniscus: There is complex degenerative tearing of the posterior horn and body of the medial meniscus. Tearing within the posterior horn involves the undersurface and free edge of the meniscus. There is a tiny 3 mm meniscal flap associated with the free edge of the posterior horn of the meniscus close to the root sagittal T2 fat-sat image number 14 of series 8. There also appears to be a small 5 mm meniscal flap extending superior to the posterior most body of the meniscus on coronal STIR image number 18 of series 5. Articular Cartilage: Marginal osteophyte formation. There is bone marrow edema involving the medial aspect of the medial femoral condyle and medial tibial plateau. There is high-grade articular cartilage wear medially (grade 3/4). LATERAL COMPARTMENT: Lateral Meniscus: Intact. Articular Cartilage: Maintained. 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 LIGAMENTS: Anterior Cruciate Ligament: Intact. Posterior Cruciate Ligament: Intact. MEDIAL COLLATERAL LIGAMENT AND POSTEROMEDIAL CORNER COMPLEX: Medial Collateral Ligament: Chronic thickening of the MCL. Mild medial bowing of the ligament. Periligamentous edema. Medial Head of the Gastrocnemius and Semimembranosus Tendons: Normal. LATERAL COLLATERAL LIGAMENT COMPLEX AND POSTEROLATERAL CORNER COMPLEX: Fibular Collateral Ligament: Normal. Distal Biceps Femoris Tendon Complex: Normal. Iliotibial Band: Normal. Popliteus Tendon: Synovitis within the popliteus tendon sheath. No tear of the tendon. Posterolateral Corner Capsule: Normal. EXTENSOR MECHANISM: Distal Quadriceps Tendon: Intact. Patellar Tendon: Intact. Medial Patellar Retinaculum and Medial Patellofemoral Ligament: Intact. Lateral Patellar Retinaculum: Intact. Normal patellar alignment. No patella himanshu. Normal trochlear depth. Normal lateral trochlear inclination. JOINT SPACE AND CAPSULE: Minor effusion. BONES AND SOFT TISSUES: No acute fracture or avascular necrosis. Small popliteal cyst. Bone marrow edema about the medial aspect of the medial joint space compartment. Small focus of cystic-like change with adjacent bone marrow edema involving the posterior proximal tibia. IMPRESSION: 1. Complex degenerative medial meniscal tear. 2. Degenerative arthrosis of the knee. High-grade cartilage wear within the medial aspect of the medial joint space compartment and within the patellofemoral compartment. 3. Mild bone marrow edema about the medial aspect of the medial joint space compartment. No fracture. 4. Chronic thickening of the MCL. 5. Minor effusion and small popliteal cyst. Dictated by Chaitanya Dumont MD @ 06/12/2025 1:19:39 PM (Electronically Signed)
== END 2025-06-12 07:04 | disposition home or self-care (01) ==
LOC: MRI 07:04
PROVIDERS: Visit Provider Nurse Practitioner
DX: M25.562 Pain in left knee (principal); S83.232A Complex tear of medial meniscus, current injury, left knee, initial encounter; M17.12 Unilateral primary osteoarthritis, left knee; M25.462 Effusion, left knee; M71.22 Synovial cyst of popliteal space [Baker], left knee
CPT/HCPCS: 73721